=== PATIENT | male | born 1950 | race Caucasian/White ===

== ENCOUNTER → 2019-11-16 09:54 | Outpatient (BNVA) | payer MEDICARE, SELFPAY | PROVIDERS: Family Provider Family Medicine; PCP Family Medicine; Visit Provider Family Medicine | DX: I10 Essential (primary) hypertension (principal); Z72.0 Tobacco use; F10.10 Alcohol abuse, uncomplicated; H61.23 Impacted cerumen, bilateral; E03.9 Hypothyroidism, unspecified; F41.9 Anxiety disorder, unspecified | CPT/HCPCS: 80053; 84443; 85025 ==

== ENCOUNTER → 2020-10-07 10:48 | Outpatient (BNVA) | payer MEDICARE, SELFPAY | PROVIDERS: Family Provider Family Medicine; PCP Family Medicine; Visit Provider Nurse Practitioner Family | DX: Z20.822 Contact with and (suspected) exposure to COVID-19 (principal) | CPT/HCPCS: 87635 ==

== ENCOUNTER → 2020-10-24 10:32 | Outpatient (BNVA) | payer MEDICARE, SELFPAY | PROVIDERS: Family Provider Family Medicine; PCP Family Medicine; Visit Provider Family Medicine | DX: I10 Essential (primary) hypertension (principal); H61.21 Impacted cerumen, right ear; Z72.0 Tobacco use | CPT/HCPCS: 80053; 85025 ==

== ENCOUNTER → 2020-12-23 09:54 | Outpatient (BNVA) | payer MEDICARE, SELFPAY | PROVIDERS: Family Provider Family Medicine; PCP Family Medicine; Visit Provider Nurse Practitioner Family | DX: Z20.822 Contact with and (suspected) exposure to COVID-19 (principal) | CPT/HCPCS: 87635 ==

== ENCOUNTER → 2021-01-29 09:59 | Outpatient (BNVA) | payer MEDICARE, SELFPAY | PROVIDERS: Family Provider Family Medicine; PCP Family Medicine; Visit Provider Family Medicine | DX: E03.9 Hypothyroidism, unspecified (principal); R26.89 Other abnormalities of gait and mobility; F33.1 Major depressive disorder, recurrent, moderate; F10.10 Alcohol abuse, uncomplicated; Z72.0 Tobacco use; I10 Essential (primary) hypertension | CPT/HCPCS: 82607; 82746; 84443 ==

== ENCOUNTER → 2021-08-25 11:27 | Outpatient (BNVA) | payer MEDICARE, SELFPAY | PROVIDERS: Family Provider Family Medicine; PCP Family Medicine; Visit Provider Family Medicine | DX: H61.21 Impacted cerumen, right ear (principal); F10.10 Alcohol abuse, uncomplicated; I10 Essential (primary) hypertension; Z72.0 Tobacco use; R73.9 Hyperglycemia, unspecified | CPT/HCPCS: 80053; 83036; 85025 ==

== ENCOUNTER 2022-04-02 02:53 | Observation (INO) | payer MEDICARE, MEDICAID, SELFPAY ==
[2022-04-02] VITALS (34 sets, daily range): BP systolic 90–157; BP diastolic 43–96; PULSE 59–78; RESP 8–21; TEMP 36.6–36.8; O2SAT 94–100; BMI 38.0
--- NOTE | 2022-04-02 02:56 | XRR_ITS ---
PROCEDURE INFORMATION: Exam: XR Chest Exam date and time: 04/02/2022 4:04 AM Age: 71 years old Clinical indication: Other: AMS; Patient HX: Patient reported wandering outside by neighbors and brought via EMS. Patient very confused. Unable to obtain history TECHNIQUE: Imaging protocol: Radiologic exam of the chest. Views: 1 view. COMPARISON: No relevant prior studies available. FINDINGS: Lungs: Unremarkable. No consolidation. Pleural spaces: Unremarkable. No pleural effusion. No pneumothorax. Heart/Mediastinum: There is mild cardiomegaly. Bones/joints: Unremarkable. XR/XR chest 1V portable [id number] IMPRESSION: Mild cardiomegaly.
--- NOTE | 2022-04-02 02:56 | CTR_ITS ---
PROCEDURE INFORMATION: Exam: CT Head Without Contrast Exam date and time: 04/02/2022 3:21 AM Age: 71 years old Clinical indication: Altered mental status/memory loss; Confusion or disorientation; Patient HX: Patient reported wandering outside by neighbors and brought via EMS. Patient very confused. Unable to obtain history; Additional info: AMS TECHNIQUE: Imaging protocol: Computed tomography of the head without contrast. Radiation optimization: All CT scans at this facility use at least one of these dose optimization techniques: automated exposure control; mA and/or kV adjustment per patient size (includes targeted exams where dose is matched to clinical indication); or iterative reconstruction. COMPARISON: No relevant prior studies available. RADIATION DOSE METRICS: Total DLP (mGy-cm): 1076.68 FINDINGS: Brain: There is mild parenchymal atrophy and chronic small vessel disease. Old right basal ganglia lacunar infarct. No cerebral/cerebellar infarct. No brain parenchymal or extra-axial hemorrhage. Cerebral ventricles: No ventriculomegaly. Paranasal sinuses: Paranasal sinuses are clear. No air-fluid level. Mastoid air cells: Visualized mastoid air cells are clear. Bones/joints: Unremarkable. No acute fracture. Soft tissues: Unremarkable. CT/CT head wo con* [id number] IMPRESSION: 1. No acute infarct or hemorrhage. 2. Mild parenchymal atrophy and chronic small vessel disease.
--- NOTE | 2022-04-02 02:58 | W.ED.GENADLT ---
HPI - General Adult General: Chief complaint: Altered Mental Status Stated complaint: Confusion/AMS Time Seen by Provider: 04/02/22 02:56 Source: patient and EMS Mode of arrival: EMS Limitations: altered mental status History of Present Illness: 71-year-old male who is brought in by EMS for confusion patient was found wandering around his neighbors yard who called police who then called EMS patient is quite confused. He states that he lives with his son the police were not able to find his son and was able to contact his son. Patient is able to tell me his name but he does not know the year he is not really able to tell me his address he told EMS that he was looking for deer out in his yard. Per EMS neighbor states that he was confused and was not able to figure out how to get back to his own house either. Review of Systems General: Reports: ROS unobtainable due to mental status PFS ED PFSH: Medical History Alcohol abuse Hypertension Major depression Tobacco abuse Social History Smoking and tobacco status: current every day smoker Alcohol intake: current Physical Exam Const: COMMON NORMALS: negative for patient oriented x3 HENMT: COMMON NORMALS: normocephalic and atraumatic HEAD & SCALP: normocephalic and atraumatic Eye: COMMON NORMALS: Equal, round and reactive pupils present and EOMs intact bilaterally PUPIL: Yes Equal, round and reactive pupils present Neck/C-Spine: COMMON NORMALS: full ROM and supple Chest: COMMONS NORMALS: normal inspection of the chest and normal palpation of entire chest wall Resp: COMMON NORMALS: normal respiratory effort, No retractions, No use of accessory muscles and clear to auscultation bilaterally AUSCULTATION: clear to auscultation bilaterally Cardio: COMMON NORMALS: regular rate, regular rhythm and No murmurs present (Cardio) RATE: regular rate RHYTHM: regular rhythm GI: COMMON NORMALS: Normal to inspection, nondistended, normoactive bowel sounds present, Soft to palpation, non-tender and no masses PALPATION: Yes Soft to palpation Extremity: COMMON NORMALS: normal to inspection and full ROM Neuro: COMMON NORMALS: moves all extremities and no focal motor deficits; negative for patient oriented x3 Psych: COMMON NORMALS: cooperative; negative for mental status grossly normal Skin: COMMON NORMALS: no rashes or lesions noted and no wounds GENERAL SKIN EXAM: no rashes or lesions noted Course Vital Signs: Vital signs: Vital Signs Temperature 97.9 F 04/02/22 03:04 Pulse Rate 78 04/02/22 03:30 Respiratory Rate 12 04/02/22 03:30 Blood Pressure 135/76 04/02/22 03:22 Pulse Oximetry 98 04/02/22 03:30 Oxygen Delivery Me thod 04/02/22 03:04 [facility] - General Adult Medical Decision Making Patient presents here with altered mental status he is found wandering outside he is not hypothermic his blood work head CT is normal spoke to hospitalist will admit for observation at this time. Lab Data 04/02/22 03:10 04/02/22 03:10 Radiology Impressions Chest X-Ray 04/02/22 02:56 IMPRESSION: Mild cardiomegaly. Head CT 04/02/22 02:56 IMPRESSION: 1. No acute infarct or hemorrhage. 2. Mild parenchymal atrophy and chronic small vessel disease. Laboratory Results WBC 10.4 10^3/uL (4.0-10.0) H 04/02/22 03:10 RBC 3.97 10^6/uL (4.1-5.3) L 04/02/22 03:10 Hgb 12.4 g/dL (11.7-16.6) 04/02/22 03:10 Hct 37.0 % (42.0-52.0) L 04/02/22 03:10 MCV 93.2 fl (80-94) 04/02/22 03:10 MCH 31.2 pg (28.0-34.0) 04/02/22 03:10 MCHC 33.5 g/dL (30.0-36.0) 04/02/22 03:10 RDW 12.2 % (12.1-15.1) 04/02/22 03:10 Plt Count 169 10^3/cmm (130-400) 04/02/22 03:10 MPV 11.9 fL (7.4-10.4) H 04/02/22 03:10 Neut % (Auto) 68.4 % 04/02/22 03:10 Lymph % (Auto) 22.0 % 04/02/22 03:10 [place] % (Auto) 7.3 % 04/02/22 03:10 Eos % (Auto) 1.2 % 04/02/22 03:10 Baso % (Auto) 0.6 % 04/02/22 03:10 Neut # (Auto) 7.14 10^3/uL (1.8-7.7) 04/02/22 03:10 Lymph # (Auto) 2.3 10^3/uL (0.8-4.8) 04/02/22 03:10 [place] # (Auto) 0.8 10^3/uL (0.2-0.9) 04/02/22 03:10 Eos # (Auto) 0.1 10^3/uL (0.0-0.8) 04/02/22 03:10 Baso # (Auto) 0.1 10^3/uL (0.0-0.1) 04/02/22 03:10 Nucleated RBC % (auto) 0 % 04/02/22 03:10 Nucleated RBCs # 0.0 /100WBC 04/02/22 03:10 PT 13.90 SECONDS (12.1-14.9) 04/02/22 03:10 INR 1.04 (0.8-1.2) 04/02/22 03:10 Sodium 137 mmol/L (136-145) 04/02/22 03:10 Potassium 4.4 mmol/L (3.5-5.1) 04/02/22 03:10 Chloride 101 mmol/L (98-107) 04/02/22 03:10 Carbon Dioxide 23 mmol/L (22-29) 04/02/22 03:10 Anion Gap 17.4 (5-19) 04/02/22 03:10 BUN 49 mg/dL (8-23) H 04/02/22 03:10 Creatinine 1.2 mg/dL (0.7-1.2) 04/02/22 03:10 GFR Calculation Not Reportable 04/02/22 03:10 Glucose 96 mg/dL (65-115) 04/02/22 03:10 POC Glucose 116 mg/dL (70-110) H 04/02/22 03:06 Calculated Osmolality 297 mOsm/kg (285-295) H 04/02/22 03:10 Calcium 9.5 mg/dL (8.5-10.5) 04/02/22 03:10 Magnesium 2.4 mg/dL (1.7-2.3) H 04/02/22 03:10 Total Bilirubin 0.3 mg/dL (0.15-1.2) 04/02/22 03:10 AST 33 U/L (0-40) 04/02/22 03:10 ALT 25 U/L (0-41) 04/02/22 03:10 Alkaline Phosphatase 102 U/L (40-130) 04/02/22 03:10 Total Protein 7.1 g/dL (6.6-8.7) 04/02/22 03:10 Albumin 4.2 g/dL (3.5-5.2) 04/02/22 03:10 Globulin 2.9 g/dL (1.3-4.6) 04/02/22 03:10 Lipase 36 U/L (13-60) 04/02/22 03:10 Urine Color Yellow (Yellow) 04/02/22 04:04 Urine Appearance Clear (CLEAR) 04/02/22 04:04 Urine pH 5 (5-7) 04/02/22 04:04 Ur Specific [place] 1.020 (1.005-1.030) 04/02/22 04:04 Urine Protein Neg (Negative) 04/02/22 04:04 Urine Glucose (UA) Norm (Normal) 04/02/22 04:04 Urine Ketones Negative (Negative) 04/02/22 04:04 Urine Blood Neg (Negative) 04/02/22 04:04 Urine Nitrate Negative (Negative) 04/02/22 04:04 Urine Bilirubin Neg (Negative) 04/02/22 04:04 Urine Urobilinogen Norm mg/dL (Negative) 04/02/22 04:04 Ur Leukocyte Esterase Negative (Negative) 04/02/22 04:04 Ethyl Alcohol < 10 mg/dL (0-10) 04/02/22 03:10 EKG Data EKG 1: I personally reviewed and interpreted this EKG as follows: EKG interpretation date: 04/02/22 EKG interpretation time: 03:17 Interpretation: nsr hr [address] or t wave abnormalities qrs 89 qtc 422 Computer generated interpretation: Chest X-Ray 04/02/22 02:56 IMPRESSION: Mild cardiomegaly. Head CT 04/02/22 02:56 IMPRESSION: 1. No acute infarct or hemorrhage. 2. Mild parenchymal atrophy and chronic small vessel disease. Discharge Plan Discharge Patient Disposition: Admitted As Inpatient Clinical Impression: Altered mental status Condition: Stable Coding Level of Care Code ED Housekeeping Aide for Johnnie Fwd Exam Comprehensive
--- NOTE | 2022-04-02 03:17 | ECG_ITS ---
[facility] Test Date: 2022-04-02 Pat Name: Steve Garcia Department: Room: Gender: Male Linux Vmware Administrator: : 1950 Requested By: Gabriel Faustin Order Number: [id number] Faustino MD: Helder Christiansen M.D. Measurements Intervals [place] Rate: 75 P: 72 DE: 171 QRS: 38 QRSD: 89 T: 44 QT: 393 QTc: 441 Interpretive Statements SINUS RHYTHM No previous ECG available for comparison Electronically Signed On 04-03-2022 6:27:12 FORENSIC CHEMIST by Helder Christiansen M.D. [id number]
[2022-04-02 03:20] LABS: Glucose Point of Care 116 mg/dL (70-110)
[2022-04-02 03:26] LABS: Basophils # 0.1 10^3/uL (0.0-0.1); Basophils % 0.6 %; Eosinophils # 0.1 10^3/uL (0.0-0.8); Eosinophils % 1.2 %; Hemoglobin 12.4 g/dL (11.7-16.6); Lymphocytes # 2.3 10^3/uL (0.8-4.8); Mean Corpuscular HGB Conc 33.5 g/dL (30.0-36.0); Mean Corpuscular Hemoglobin 31.2 pg (28.0-34.0); Mean Corpuscular Volume 93.2 fl (80-94); Mean Platelet Volume 11.9 fL (7.4-10.4); Monocytes # 0.8 10^3/uL (0.2-0.9); Monocytes % 7.3 %; Neutrophils # 7.14 10^3/uL (1.8-7.7); Neutrophils % 68.4 %; Nucleated Red Blood Cells % 0 %; Platelet Count 169 10^3/cmm (130-400); Red Blood Count 3.97 10^6/uL (4.1-5.3); Red Cell Distribution Width 12.2 % (12.1-15.1); White Blood Count 10.4 10^3/uL (4.0-10.0)
[2022-04-02 03:44] LABS: INR 1.04 (0.8-1.2)
[2022-04-02 03:47] LABS: Alanine Aminotransferase 25 U/L (0-41); Albumin Level 4.2 g/dL (3.5-5.2); Alkaline Phosphatase 102 U/L (40-130); Aspartate Amino Transferase 33 U/L (0-40); Blood Urea Nitrogen 49 mg/dL (8-23); Calcium 9.5 mg/dL (8.5-10.5); Carbon Dioxide 23 mmol/L (22-29); Chloride 101 mmol/L (98-107); Globulin 2.9 g/dL (1.3-4.6); Glucose 96 mg/dL (65-115); Osmolality Calculated 297 mOsm/kg (285-295); Sodium 137 mmol/L (136-145); Total Bilirubin 0.3 mg/dL (0.15-1.2); Total Protein 7.1 g/dL (6.6-8.7)
[2022-04-02 03:48] LABS: Lipase 36 U/L (13-60); Magnesium 2.4 mg/dL (1.7-2.3)
[2022-04-02 03:49] LABS: Alcohol Level < 10 mg/dL (0-10); Anion Gap 17.4 (5-19); Potassium 4.4 mmol/L (3.5-5.1)
[2022-04-02 04:10] LABS: Add Urine Microscopic? NO; Charge for UA Resulting for Rev
[2022-04-02 04:13] LABS: Bilirubin Urine Neg (Negative); Blood Urine Neg (Negative); Glucose Urine UA Norm (Normal); Ketones Urine Negative (Negative); Leukocyte Esterase Urine Negative (Negative); Nitrate Urine Negative (Negative); Protein Urine Neg (Negative); Urine Appearance Clear (CLEAR); Urine Color Yellow (Yellow); Urobilinogen Urine Norm (Negative); pH Urine 5 (5-7)
--- NOTE | 2022-04-02 06:21 | PC.NURSE ---
0500 pt given bed bath with family at bedside. Pt had multiple layers of urine and stool stain clothing on. New bed linens applied. 0550 Pt ambulated with assistance of nurse to bathroom for BM. Pt attempted to wipe ori area with bare hand. Nurse assisted to clean again. Pt unaware of feces on hands at the time. 0600 pt returned to bed. skin tear to Right ring finger dressed and taped at this time as well as skin tear to right forearm.
--- NOTE | 2022-04-02 06:59 | US_ITS ---
WS: [id number] ULTRASOUND ABDOMEN LIMITED CLINICAL INFORMATION: alcohol dependence, evaluate for cirrhosis COMPARISON: None. FINDINGS: Liver Size: Mild hepatomegaly Craniocaudal length: 16.7 cm. Echogenicity: Coarse Surface nodularity: None. Mass (size and location): None. Bile ducts Intrahepatic ducts: Normal. Common bile duct diameter: 0.5 cm. Gallbladder Cholelithiasis Gallstones: Present Gallbladder sludge: Present Gallbladder wall thickening: None. Pericholecystic fluid: None. Sonographic Soliman sign: Absent. Pancreas Normal as visualized. Right kidney: Normal. Hydronephrosis: None. Size: 11.2 cm x 5.7 cm x 6.1 cm. Abdominal aorta and IVC Visualized portions are normal. Ascites: None. US/US liver [id number] IMPRESSION: 1. Cholelithiasis. No gallbladder wall thickening or pericholecystic fluid. 2. Normal common bile duct. 3. Mild hepatomegaly with coarse hepatic echogenicity. Recommend correlation w ith liver function tests. 4. No other suspicious anomalies.
--- NOTE | 2022-04-02 07:10 | PM.HP ---
Providers/Chief Complaint Admitting Physician: Keily Cleveland MD Primary Care Provider: Shabana Don MD Chief Complaint: Confusion/AMS History of Present Illness Steve Garcia is a 71 year old male with a past medical history of alcohol dependence, hypertension, possibly also with dementia with progressive cognitive changes over the past at least 6 months brought in by EMS after he was found wandering the streets at night. Patient recalls leaving the house however is unable to tell me why exactly he left the house. He also tells me he fell. There are a few scrapes over his left knee. He denies hitting his head. Patient himself does not have any other specific complaints apart from the fact that he fell. Per his son Steven was currently at bedside, patient has been having cognitive deterioration slowly over the past at least 1 year, more progressive over the last 6 months. It was planned to follow-up with his primary care provider as an outpatient for further evaluation for possible dementia, however this appointment was unable to be completed. He typically follows with Dr. Don as outpatient. His son describes episodes of hallucination wherein he will see people that were not there, he will attempt to go filler picker his parents who are currently , will make up some stories which are not believable. He has left the house on occasions in the past but has mostly wandered around in the yard and been brought back inside by his family. His family initially thought that his behavior is related to his history of longstanding alcohol use. He is a heavy drinker, drinks multiple beers a day, has been attempting to cut back over the last 6 months or so. Currently his alcohol level is less than 10. At the time of my assessment patient is alert awake oriented to time place and person. He is able to correctly tell me his name, age, date of , the fact that he is in the hospital and that he lives in [place] about 10 miles from the hospital. However when asked to identify his son at bedside, initially he called him his brother. Then laughed and said that this is his son. Initially called his son Grayson while his son's name is Steven. He correctly told me he has 2 kids. 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 No other hallucinations evident at this time. There is no known past history of liver cirrhosis, no history of cardiac disease. No known history of diabetes mellitus. His chronic issues at this time are only hypertension. Review of Systems General: Reports: 10 or more systems reviewed and unremarkable except in HPI and below Const: Denies: fever(s), chills or body aches Eyes: Denies: change in vision, blurry vision or photophobia ENMT: Reports: hoarseness; Denies: throat pain, enlarged tonsils, odynophagia or nasal congestion Card: Denies: chest pain, palpitations, irregular heart rhythm, edema, swelling of feet/ankles, lightheadedness, pre-syncope, dyspnea on exertion or orthopnea Resp: Denies: dyspnea, productive cough, non-productive cough, wheezing, stridor, pain on inspiration, change in phlegm color, hemoptysis or chest congestion GI: Denies: abdominal pain, nausea, vomiting, hematemesis, coffee ground emesis, dysphagia, heartburn, diarrhea, constipation, GI cramping, change in stool character, hematochezia or melena : Denies: flank pain, dysuria, urinary frequency, urinary urgency, urinary hesitancy or hematuria Musc: Denies: neck pain, back pain, extremity pain, joint swelling, joint warmth or deformity Neuro: Denies: headache(s), numbness in extremities, weakness in extremities, sensory changes, difficulty walking, frequent falls, dizziness, vertigo, behavioral changes, Slurred speech present or seizure-like activity Psych: Denies: anxiety, depression, suicidal ideation or homicidal ideation Endo: Denies: polyuria, polydipsia, tired all the time, cold intolerance or hot flashes Mg/Lymph: Denies: easy bruising or easy bleeding Medications/Allergies Home Medications Medication Instructions Recorded Confirmed Last Taken Type lorazepam 1 mg tablet 1 mg PO DAILY PRN anxiety 30 days 10/24/20 12/15/21 Unknown Rx #20 tabs amlodipine 10 mg tablet See Rx Instructions .Route 06/24/21 12/15/21 Unknown Rx .COMPLEX #90 tabs potassium chloride 20 mEq 20 meq PO DAILY #30 tabs 08/26/21 12/15/21 Unknown Rx tablet,extended release losartan 50 mg-hydrochlorothiazide 1 tab PO DAILY #90 tabs 11/11/21 12/15/21 Unknown Rx 12.5 mg tablet Allergies Allergy/AdvReac Type Severity Reaction Status Date / Time Iodinated Contrast Media Allergy hives Verified 12/15/21 09:52 PFSH Acute PFSH: Medical History Alcohol abuse Hypertension Major depression Tobacco abuse Social History Smoking and tobacco status: current every day smoker Alcohol intake: current Vitals/I&O/Wt Last Vital Signs Temp 97.9 F 04/02/22 03:04 Pulse 76 04/02/22 06:38 Resp 16 04/02/22 06:38 BP 121/75 04/02/22 06:38 Pulse Ox 99 04/02/22 06:38 O2 Del Method 04/02/22 06:18 Weight last 48 hrs Weight 120.202 kg Physical Exam Narrative: General: No acute distress, AO x3 HEENT: PERRLA, pupils bilaterally equal and reactive, pallors not present Chest: Normal vesicular breath sounds, no added sounds, equal good air entry bilaterally CVS: S1-S2 regular, no murmurs, no tachycardia, no gallops, no rubs Abdomen: Soft, nontender, no organomegaly, bowel sounds present, circular erythematous area around the bellybutton, patient states this is from a belt buckle and constantly impinges against it. Neuro: No focal deficits, no facial deformity, AO x3, power 5/5 in all limbs EXTR extremities: Athlete's foot right side. Data 04/02/22 03:10 04/02/22 03:10 Other Labs: Radiology Impressions Chest X-Ray 04/02/22 02:56 IMPRESSION: Mild cardiomegaly. Head CT 04/02/22 02:56 IMPRESSION: 1. No acute infarct or hemorrhage. 2. Mild parenchymal atrophy and chronic small vessel disease. Laboratory Results WBC 10.4 10^3/uL (4.0-10.0) H 04/02/22 03:10 RBC 3.97 10^6/uL (4.1-5.3) L 04/02/22 03:10 Hgb 12.4 g/dL (11.7-16.6) 04/02/22 03:10 Hct 37.0 % (42.0-52.0) L 04/02/22 03:10 MCV 93.2 fl (80-94) 04/02/22 03:10 MCH 31.2 pg (28.0-34.0) 04/02/22 03:10 MCHC 33.5 g/dL (30.0-36.0) 04/02/22 03:10 RDW 12.2 % (12.1-15.1) 04/02/22 03:10 Plt Count 169 10^3/cmm (130-400) 04/02/22 03:10 MPV 11.9 fL (7.4-10.4) H 04/02/22 03:10 Neut % (Auto) 68.4 % 04/02/22 03:10 Lymph % (Auto) 22.0 % 04/02/22 03:10 [place] % (Auto) 7.3 % 04/02/22 03:10 Eos % (Auto) 1.2 % 04/02/22 03:10 Baso % (Auto) 0.6 % 04/02/22 03:10 Neut # (Auto) 7.14 10^3/uL (1.8-7.7) 04/02/22 03:10 Lymph # (Auto) 2.3 10^3/uL (0.8-4.8) 04/02/22 03:10 [place] # (Auto) 0.8 10^3/uL (0.2-0.9) 04/02/22 03:10 Eos # (Auto) 0.1 10^3/uL (0.0-0.8) 04/02/22 03:10 Baso # (Auto) 0.1 10^3/uL (0.0-0.1) 04/02/22 03:10 Nucleated RBC % (auto) 0 % 04/02/22 03:10 Nucleated RBCs # 0.0 /100WBC 04/02/22 03:10 PT 13.90 SECONDS (12.1-14.9) 04/02/22 03:10 INR 1.04 (0.8-1.2) 04/02/22 03:10 Sodium 137 mmol/L (136-145) 04/02/22 03:10 Potassium 4.4 mmol/L (3.5-5.1) 04/02/22 03:10 Chloride 101 mmol/L (98-107) 04/02/22 03:10 Carbon Dioxide 23 mmol/L (22-29) 04/02/22 03:10 Anion Gap 17.4 (5-19) 04/02/22 03:10 BUN 49 mg/dL (8-23) H 04/02/22 03:10 Creatinine 1.2 mg/dL (0.7-1.2) 04/02/22 03:10 GFR Calculation Not Reportable 04/02/22 03:10 Glucose 96 mg/dL (65-115) 04/02/22 03:10 POC Glucose 116 mg/dL (70-110) H 04/02/22 03:06 Calculated Osmolality 297 mOsm/kg (285-295) H 04/02/22 03:10 Calcium 9.5 mg/dL (8.5-10.5) 04/02/22 03:10 Magnesium 2.4 mg/dL (1.7-2.3) H 04/02/22 03:10 Total Bilirubin 0.3 mg/dL (0.15-1.2) 04/02/22 03:10 AST 33 U/L (0-40) 04/02/22 03:10 ALT 25 U/L (0-41) 04/02/22 03:10 Alkaline Phosphatase 102 U/L (40-130) 04/02/22 03:10 Total Protein 7.1 g/dL (6.6-8.7) 04/02/22 03:10 Albumin 4.2 g/dL (3.5-5.2) 04/02/22 03:10 Globulin 2.9 g/dL (1.3-4.6) 04/02/22 03:10 Lipase 36 U/L (13-60) 04/02/22 03:10 Urine Color Yellow (Yellow) 04/02/22 04:04 Urine Appearance Clear (CLEAR) 04/02/22 04:04 Urine pH 5 (5-7) 04/02/22 04:04 Ur Specific [place] 1.020 (1.005-1.030) 04/02/22 04:04 Urine Protein Neg (Negative) 04/02/22 04:04 Urine Glucose (UA) Norm (Normal) 04/02/22 04:04 Urine Ketones Negative (Negative) 04/02/22 04:04 Urine Blood Neg (Negative) 04/02/22 04:04 Urine Nitrate Negative (Negative) 04/02/22 04:04 Urine Bilirubin Neg (Negative) 04/02/22 04:04 Urine Urobilinogen Norm mg/dL (Negative) 04/02/22 04:04 Ur Leukocyte Esterase Negative (Negative) 04/02/22 04:04 Ethyl Alcohol < 10 mg/dL (0-10) 04/02/22 03:10 A&P Assessment and plan (1) Altered mental status: Patient today brought by EMS after he was found wandering the streets, having left his house. Based on his history this seems to be a very slowly progressive process over the past 1 year, worsened over the last 6 months. Progressive dementia is the chief differential at this time. CT of his head is without any signs of acute infarct or hemorrhage. There is mild parenchymal atrophy and chronic small vessel disease. His electrolytes are within normal range today. Creatinine is normal. We will check urine drug screen, TSH, ammonia, and a liver ultrasound to assess for any underlying cirrhosis given longstanding history of alcohol dependence. Alternate differentials are Wernicke's encephalopathy given longstanding alcohol use. We will start supplementation with thiamine 100 mg p.o. daily. No focal signs or symptoms of infection at this time. Urine analysis is without signs of UTI. Mild cardiomegaly is noted on chest x-ray but otherwise clear lungs. patient denies any complains of chest pain dyspnea or palpitations. EKG is with sinus rhythm without any acute ST-T wave changes. We will would admit to [facility] bservation currently. Further orders based on results of pending blood work. DVT prophylaxis: Lovenox Dispo: currently lives with son Omar, however plan is to return to live with his (currently living in separate homes). Other son Steven is listed as next of kin and point of contact Attestations Medical Necessity Statement*: anticipate less than 2 midnight admission for above defined care Coding Level of Care Code Acute Rapid Extractor Operator for Chg Fwd Diagnoses Altered mental status R41.82
--- NOTE | 2022-04-02 07:51 | PC.PHAR ---
Addendum entered by Zoe Garcia 04/02/22 08:02: crissy from [facility] states only fills 3 rxs for the pt-medications entered are meds [facility] pharmacy fills for the pt-pt had a lorazepam 1mg qd prn on hold rx written 10/24/2020 and is Original Note: pts carmelo garcia [phone] states he doesnt help the pt with his medications-states the pts other son judy garcia lives with the pt and helps him with his medications-brain states no one can get ahold or fine judy states he did cherry picker operator his dads medications from [facility] waiting for [facility] to open to verify what medications filled for the pt
[2022-04-02 09:13] LABS: Folate Level 7.1 ng/mL (4.5-32.2)
[2022-04-02 09:14] LABS: Hepatitis A Antibody IgM Non-Reactive (Nonreactive); Hepatitis B Core AB, Total Non-Reactive (Nonreactive); Hepatitis B Surface AB 3.5 (11.5-1000); Hepatitis B Surface Antigen Non-Reactive (Nonreactive); Hepatitis C Virus Antibody Non-Reactive (Nonreactive)
[2022-04-02] MEDS: folic acid 1 MG, multivitamin inj 10 ML, thiamine 100 MG in sodium chloride 0.9% 1,000 ML IV (09:32)
--- NOTE | 2022-04-02 09:32 | PC.CHAP ---
Pastoral Care Encounter/Spiritual Assessment Type of Contact [] Declined student support advisor visit [] Patient/Family/Request visit [] Outpatient visit [] Follow-up visit [] Physician referral [] Code/Alert [x] Routine visit [] Staff referral [] Actively dying [] Patient sleeping [] Family support [] [] Out of room [] Palliative care [] [x] Receiving care in room [] Pre-surgical visit [] Trauma [] Long length of stay [x] ICU visit [] Other: Relational/Emotional Strength [] Patient feels connected with others/family/visitors/staff [] Distress [] Loneliness/isolation [] Abandonment Spirituality of Patient [] Person of Hilaria [] Attends Quaker of their Hilaria [] Believes in Prayer [] Reads Bible or Rastafari materials [] There are Spiritual issues to be addressed Industrial Ecology Technician Interventions [] Prayer [] Active listening [] Non-anxious presence [] Spiritual/emotional support [] Crisis/trauma care [] Spiritual counseling [] Bereavement support [] Provided bereavement packet [] Provided Bible/devotional materials [] Provided toy/stuffed animal, coloring book to patient or family member [] Provided Communion [] Anointing/[place] [] Salvation [] Completed spiritual assessment [] Other: Impact on Illness or Injury [] Angry [] Fearful [] Anxious [] Often cries [] Exhaustion [] Unable to work [] Unable to attend restorationism [] Unable to walk/stand [] Unable to read [] Unable to drive [] Unable to eat/drink [] Unable to sleep [] Unable to be with family [] Patient intubated [] Other: Summary Time spent with patient
[2022-04-02] MEDS: hydroCHLOROthiazide 25 mg Tablet 12.5 MG PO (09:37)
[2022-04-02] MEDS: losartan 50 mg Tablet PO (09:37)
[2022-04-02] MEDS: enoxaparin 40 mg/0.4 mL Syringe SUBCUT (09:38)
[2022-04-02] MEDS: thiamine 100 mg Tablet PO (09:38)
[2022-04-02] MEDS: amlodipine 10 mg Tablet PO (09:38)
[2022-04-02] MEDS: pantoprazole DR 40 mg Tablet PO (09:38)
[2022-04-02 09:48] LABS: Ammonia 28 umol/L (16-60)
[2022-04-02 09:58] LABS: Amphetamines Screen Urine Negative (Negative); Barbiturates Screen Urine Negative (Negative); Benzodiazepines Screen Urine Negative (Negative); Cocaine Screen Urine Negative (Negative); Opiate Screen Urine Negative (Negative); PCP Screen Urine Negative (Negative); THC Screen Urine Negative (Negative)
[2022-04-02 10:12] LABS: Thyroid Stimulating Hormone 1.48 uIU/mL (0.27-4.20); Vitamin B12 253 pg/mL (232-1245)
--- NOTE | 2022-04-02 18:03 | PC.NURSE ---
shift summary, uneventful shift, mentation improved during shift, is AO at this time follows commands, family has been at bedside, tentative plan to D/C tomorrow
[2022-04-02] MEDS: artificial tears Op Soln 15 mL Btl 1 DROP EYE-BOTH (20:05)
[2022-04-03] VITALS: BP 102/64; PULSE 61; RESP 17; TEMP 36.8; O2SAT 96
[2022-04-03 04:00] VITALS: BP 134/83; PULSE 63; RESP 18; TEMP 36.7; O2SAT 98
[2022-04-03 05:41] LABS: Basophils % 0.6 %; Eosinophils # 0.2 10^3/uL (0.0-0.8); Eosinophils % 2.5 %; Hematocrit 33.6 % (42.0-52.0); Lymphocytes # 2.9 10^3/uL (0.8-4.8); Lymphocytes % 46.3 %; Mean Corpuscular HGB Conc 32.7 g/dL (30.0-36.0); Mean Corpuscular Volume 94.6 fl (80-94); Mean Platelet Volume 12.2 fL (7.4-10.4); Monocytes # 0.6 10^3/uL (0.2-0.9); Monocytes % 8.7 %; Neutrophils # 2.63 10^3/uL (1.8-7.7); Neutrophils % 41.6 %; Nucleated Red Blood Cells % 0 %; Platelet Count 146 10^3/cmm (130-400); Red Blood Count 3.55 10^6/uL (4.1-5.3); Red Cell Distribution Width 12.2 % (12.1-15.1); White Blood Count 6.3 10^3/uL (4.0-10.0)
[2022-04-03 05:59] LABS: Alanine Aminotransferase 21 U/L (0-41); Albumin Level 3.2 g/dL (3.5-5.2); Alkaline Phosphatase 90 U/L (40-130); Anion Gap 12.8 (5-19); Aspartate Amino Transferase 25 U/L (0-40); Blood Urea Nitrogen 32 mg/dL (8-23); Calcium 8.8 mg/dL (8.5-10.5); Carbon Dioxide 24 mmol/L (22-29); Chloride 105 mmol/L (98-107); Globulin 2.7 g/dL (1.3-4.6); Glucose 78 mg/dL (65-115); Osmolality Calculated 292 mOsm/kg (285-295); Potassium 3.8 mmol/L (3.5-5.1); Sodium 138 mmol/L (136-145); Total Bilirubin 0.4 mg/dL (0.15-1.2); Total Protein 5.9 g/dL (6.6-8.7)
[2022-04-03 06:42] LABS: Glucose Point of Care 84 mg/dL (70-110)
[2022-04-03] MEDS: hydroCHLOROthiazide 25 mg Tablet 12.5 MG PO (07:52)
[2022-04-03] MEDS: losartan 50 mg Tablet PO (07:52)
[2022-04-03] MEDS: amlodipine 10 mg Tablet PO (07:52)
[2022-04-03] MEDS: pantoprazole DR 40 mg Tablet PO (07:52)
[2022-04-03] MEDS: thiamine 100 mg Tablet PO (07:52)
[2022-04-03] MEDS: enoxaparin 40 mg/0.4 mL Syringe SUBCUT (07:53)
[2022-04-03 07:54] VITALS: BP 142/76; PULSE 60; RESP 16; TEMP 36.3; O2SAT 98
--- NOTE | 2022-04-03 11:10 | PC.CHAP ---
Pastoral Care Encounter/Spiritual Assessment Type of Contact [] Declined fermentation manager visit [] Patient/Family/Request visit [] Outpatient visit [] Follow-up visit [] Physician referral [] Code/Alert [x] Routine visit [] Staff referral [] Actively dying [x] Patient sleeping [] Family support [] [] Out of room [] Palliative care [] [] Receiving care in room [] Pre-surgical visit [] Trauma [] Long length of stay [] ICU visit [] Other: Relational/Emotional Strength [] Patient feels connected with others/family/visitors/staff [] Distress [] Loneliness/isolation [] Abandonment Spirituality of Patient [] Person of Hilaria [] Attends Rastafari of their Hilaria [] Believes in Prayer [] Reads Bible or Oriental Orthodox materials [] There are Spiritual issues to be addressed Theology Professor Interventions [x] Prayer [] Active listening [] Non-anxious presence [] Spiritual/emotional support [] Crisis/trauma care [] Spiritual counseling [] Bereavement support [] Provided bereavement packet [] Provided Bible/devotional materials [] Provided toy/stuffed animal, coloring book to patient or family member [] Provided Communion [] Anointing/[place] [] Salvation [] Completed spiritual assessment [] Other: Impact on Illness or Injury [] Angry [] Fearful [] Anxious [] Often cries [] Exhaustion [] Unable to work [] Unable to attend quaker [] Unable to walk/stand [] Unable to read [] Unable to drive [] Unable to eat/drink [] Unable to sleep [] Unable to be with family [] Patient intubated [] Other: Summary Time spent with patient
[2022-04-03 11:19] LABS: Glucose Point of Care 123 mg/dL (70-110)
--- NOTE | 2022-04-03 11:32 | PM.DCS ---
Discharge Providers Date of Admission: 04/02/22 07:00 Date of Discharge: April 03, 2022 Attending Provider at Admission: Keily Cleveland MD Attending Provider at Discharge: Yong Ray MD Primary Care Provider: Shabana Don MD Diagnoses at Discharge Discharge Diagnosis (1) Altered mental status: Status: Acute Reason for Visit Reason for Visit: Confusion/AMS Hospital Course Hospital Course Steve Garcia is a 71 year old male with a past medical history of alcohol dependence, hypertension, possibly also with dementia with progressive cognitive changes over the past at least 6 months brought in by EMS after he was found wandering the streets at night.? Patient recalls leaving the house however is unable to tell me why exactly he left the house.? He also tells me he fell.? There are a few scrapes over his left knee.? He denies hitting his head. Patient himself does not have any other specific complaints apart from the fact that he fell. Per his son Steven was currently at bedside, patient has been having cognitive deterioration slowly over the past at least 1 year, more progressive over the last 6 months.? It was planned to follow-up with his primary care provider as an outpatient for further evaluation for possible dementia, however this appointment was unable to be completed.? He typically follows with Dr. Don as outpatient.? His son describes episodes of hallucination wherein he will see people that were not there, he will attempt to go draft roller picker his parents who are currently , will make up some stories which are not believable.? He has left the house on occasions in the past but has mostly wandered around in the yard and been brought back inside by his family.? His family initially thought that his behavior is related to his history of longstanding alcohol use.? He is a heavy drinker, drinks multiple beers a day, has been attempting to cut back over the last 6 months or so.? Currently his alcohol level is less than 10. At the time of my assessment patient is alert awake oriented to time place and person.? He is able to correctly tell me his name, age, date of , the fact that he is in the hospital and that he lives in [place] about 10 miles from the hospital.? However when asked to identify his son at bedside, initially he called him his brother.? Then laughed and said that this is his son.? Initially called his son Grayson while his son's name is Steven.? He correctly told me he has 2 kids.? 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 No other hallucinations evident at this time. There is no known past history of liver cirrhosis, no history of cardiac disease.? No known history of diabetes mellitus.? His chronic issues at this time are only hypertension. Patient was under the hospital further evaluation and management. Multiple investigations were done which ruled out hepatic encephalopathy, infectious process, meningitis, stroke. Blood work showed a baseline creatinine and electrolytes. ABG, urine drug screen and alcohol levels were negative. Patient's symptoms are most likely secondary to worsening of dementia. His hospitalization was otherwise unremarkable. Safe discharge plan was discussed in detail. He has been discharged hemodynamically stable condition back home with caregivers. He is to take amlodipine and losartan going forward for blood pressures. Depakote sprinkles and Aricept have been started for him. He is to follow-up with his primary care provider within next 10 days. Physical Exam Narrative: General: No acute distress, AO x2-3 HEENT: PERRLA, pupils bilaterally equal and reactive, pallors not present Chest: Normal vesicular breath sounds, no added sounds, equal good air entry bilaterally CVS: S1-S2 regular, no murmurs, no tachycardia, no gallops, no rubs Abdomen: Soft, nontender, no organomegaly, bowel sounds present, circular erythematous area around the bellybutton, patient states this is from a belt buckle and constantly impinges against it. Neuro: No focal deficits, no facial deformity, AO x2-3, power 5/5 in all limbs EXTR extremities: Athlete's foot right side. Discharge Data Studies Completed and Pending Completed Studies During Hospitalization Category Date Time Status CT head wo con* [id number] Stat Cat Scan 04/02/22 02:56 Completed XR chest 1V portable [id number] Stat Exams 04/02/22 02:56 [place] liver [id number] Stat Ultrasound 04/02/22 06:59 Completed Pending at discharge Category Date Time Status RPR with Reflex to Titer Routine Lab 04/02/22 07:37 Received Radiology Impressions Chest X-Ray 04/02/22 02:56 IMPRESSION: Mild cardiomegaly. Head CT 04/02/22 02:56 IMPRESSION: 1. No acute infarct or hemorrhage. 2. Mild parenchymal atrophy and chronic small vessel disease. Liver Ultrasound 04/02/22 06:59 IMPRESSION: 1. Cholelithiasis. No gallbladder wall thickening or pericholecystic fluid. 2. Normal common bile duct. 3. Mild hepatomegaly with coarse hepatic echogenicity. Recommend correlation with liver function tests. 4. No other suspicious anomalies. Laboratory Results WBC 6.3 10^3/uL (4.0-10.0) 04/03/22 05:05 RBC 3.55 10^6/uL (4.1-5.3) L 04/03/22 05:05 Hgb 11.0 g/dL (11.7-16.6) L 04/03/22 05:05 Hct 33.6 % (42.0-52.0) L 04/03/22 05:05 MCV 94.6 fl (80-94) H 04/03/22 05:05 MCH 31.0 pg (28.0-34.0) 04/03/22 05:05 MCHC 32.7 g/dL (30.0-36.0) 04/03/22 05:05 RDW 12.2 % (12.1-15.1) 04/03/22 05:05 Plt Count 146 10^3/cmm (130-400) 04/03/22 05:05 MPV 12.2 fL (7.4-10.4) H 04/03/22 05:05 Neut % (Auto) 41.6 % 04/03/22 05:05 Lymph % (Auto) 46.3 % 04/03/22 05:05 [place] % (Auto) 8.7 % 04/03/22 05:05 Eos % (Auto) 2.5 % 04/03/22 05:05 Baso % (Auto) 0.6 % 04/03/22 05:05 Neut # (Auto) 2.63 10^3/uL (1.8-7.7) 04/03/22 05:05 Lymph # (Auto) 2.9 10^3/uL (0.8-4.8) 04/03/22 05:05 [place] # (Auto) 0.6 10^3/uL (0.2-0.9) 04/03/22 05:05 Eos # (Auto) 0.2 10^3/uL (0.0-0.8) 04/03/22 05:05 Baso # (Auto) 0.0 10^3/uL (0.0-0.1) 04/03/22 05:05 Nucleated RBC % (auto) 0 % 04/03/22 05:05 Nucleated RBCs # 0.0 /100WBC 04/03/22 05:05 PT 13.90 SECONDS (12.1-14.9) 04/02/22 03:10 INR 1.04 (0.8-1.2) 04/02/22 03:10 Sodium 138 mmol/L (136-145) 04/03/22 05:05 Potassium 3.8 mmol/L (3.5-5.1) 04/03/22 05:05 Chloride 105 mmol/L (98-107) 04/03/22 05:05 Carbon Dioxide 24 mmol/L (22-29) 04/03/22 05:05 Anion Gap 12.8 (5-19) 04/03/22 05:05 BUN 32 mg/dL (8-23) H 04/03/22 05:05 Creatinine 1.1 mg/dL (0.7-1.2) 04/03/22 05:05 GFR Calculation Not Reportable 04/03/22 05:05 Glucose 78 mg/dL (65-115) 04/03/22 05:05 POC Glucose 123 mg/dL (70-110) H 04/03/22 11:12 Calculated Osmolality 292 mOsm/kg (285-295) 04/03/22 05:05 Calcium 8.8 mg/dL (8.5-10.5) 04/03/22 05:05 Magnesium 2.4 mg/dL (1.7-2.3) H 04/02/22 03:10 Total Bilirubin 0.4 mg/dL (0.15-1.2) 04/03/22 05:05 AST 25 U/L (0-40) 04/03/22 05:05 ALT 21 U/L (0-41) 04/03/22 05:05 Alkaline Phosphatase 90 U/L (40-130) 04/03/22 05:05 Ammonia 28 umol/L (16-60) 04/02/22 07:37 Total Protein 5.9 g/dL (6.6-8.7) L 04/03/22 05:05 Albumin 3.2 g/dL (3.5-5.2) L 04/03/22 05:05 Globulin 2.7 g/dL (1.3-4.6) 04/03/22 05:05 Lipase 36 U/L (13-60) 04/02/22 03:10 Vitamin B12 253 pg/mL (232-1245) 04/02/22 07:37 Folate 7.1 ng/mL (4.5-32.2) 04/02/22 07:37 TSH 1.48 uIU/mL (0.27-4.20) 04/02/22 07:37 Urine Color Yellow (Yellow) 04/02/22 04:04 Urine Appearance Clear (CLEAR) 04/02/22 04:04 Urine pH 5 (5-7) 04/02/22 04:04 Ur Specific [place] 1.020 (1.005-1.030) 04/02/22 04:04 Urine Protein Neg (Negative) 04/02/22 04:04 Urine Glucose (UA) Norm (Normal) 04/02/22 04:04 Urine Ketones Negative (Negative) 04/02/22 04:04 Urine Blood Neg (Negative) 04/02/22 04:04 Urine Nitrate Negative (Negative) 04/02/22 04:04 Urine Bilirubin Neg (Negative) 04/02/22 04:04 Urine Urobilinogen Norm mg/dL (Negative) 04/02/22 04:04 Ur Leukocyte Esterase Negative (Negative) 04/02/22 04:04 Urine Opiates Screen Negative ng/mL (Negative) 04/02/22 04:04 Ur Barbiturates Screen Negative ng/mL (Negative) 04/02/22 04:04 Ur Phencyclidine Scrn Negative ng/mL (Negative) 04/02/22 04:04 Ur Amphetamines Screen Negative ng/mL (Negative) 04/02/22 04:04 U Benzodiazepines Scrn Negative ng/mL (Negative) 04/02/22 04:04 Urine Cocaine Screen Negative ng/mL (Negative) 04/02/22 04:04 U Marijuana (THC) Screen Negative ng/mL (Negative) 04/02/22 04:04 Ethyl Alcohol < 10 mg/dL (0-10) 04/02/22 03:10 Hepatitis A IgM Ab Non-reactive (Nonreactive) 04/02/22 07:37 Hep Bs Antigen Non-reactive (Nonreactive) 04/02/22 07:37 Hep Bs Antibody 3.5 (11.5-1000) L 04/02/22 07:37 Hep B Core Total Ab Non-reactive (Nonreactive) 04/02/22 07:37 Hepatitis C Antibody Non-reactive (Nonreactive) 04/02/22 07:37 Vitals Last Vital Signs Temp 97.4 F L 04/03/22 07:54 Pulse 60 04/03/22 07:54 Resp 16 04/03/22 07:54 BP 142/76 04/03/22 07:54 Pulse Ox 98 04/03/22 07:54 O2 Del Method 04/03/22 07:54 Discharge Plan Discharge Patient Disposition: Home Condition: Stable Prescriptions: New losartan 50 mg Tablet 50 mg PO DAILY Qty: 30 0RF pantoprazole 40 mg Tablet,Delayed Release (Dr/Ec) 40 mg PO DAILY Qty: 30 0RF thiamine mononitrate (vit B1) [Vitamin B-1 (mononitrate)] 100 mg Tablet 100 mg PO DAILY Qty: 30 0RF divalproex [Depakote Sprinkles] 125 mg capsule, delayed rel sprinkle 125 mg PO TID 30 Days Qty: 90 0RF donepezil [Aricept] 10 mg tablet 10 mg PO DAILY Qty: 30 0RF Continued amlodipine 10 mg tablet 10 mg PO DAILY Discontinued potassium chloride 20 mEq tablet extended release 20 meq PO DAILY Qty: 30 7RF losartan-hydrochlorothiazide 50-12.5 mg tablet 1 tab PO DAILY Qty: 90 3RF Rx Instructions: Replaces taking the HCTZ 25mg pill and the losartan 50mg pill for blood pressure Discharge Orders: Discharge Order (Routine); Ordered 04/03/22 Ordered By: Yong Ray Referrals: Shabana Don MD [Primary Care Provider] - 7-10 days Discharge Diet: Usual diet Discharge Activity: Resume usual activity and Increase activity as tolerated Patient Instructions: Opioid Safety Activity Restrictions/Additional Instructions: Please follow-up with a primary care provider within next 1 week. For blood pressures take losartan 50 mg daily and amlodipine 10 mg daily. Depakote 3 times a day and donepezil has been added for dementia. Discharge Attestations Time Spent in Discharge Care*: greater than 30 min Specific Discharge Activities: educating and/or supporting family/caregiver, discussing with case making machine operator/social workers/dc planners, documenting/other paperwork and evaluating patient/reviewing data Status at Discharge: Cognitive status at discharge: moderately impaired cognition, Behavioral status at discharge: cooperative, Functional status at discharge: uses cane/walker, Overall status at discharge: patient is back to baseline Quality Metrics Clinical Quality Measures [ No reported AMI, CVA or VTE this stay] Coding Level of Care Code Acute Chg FW DC note Diagnoses Altered mental status R41.82
[2022-04-03 11:33] LABS: RPR w(Moniotor) w/REFL Titer NON-REACTIVE (NON-REACTIVE)
[2022-04-03 11:38] VITALS: BP 137/75; PULSE 62; RESP 17; TEMP 36.6; O2SAT 97
== END 2022-04-03 13:20 | disposition home or self-care (01) ==
LOC: ER 04:48 → ICU 07:52 → MEDSURG 18:40
PROVIDERS: Admitting Provider Student in an Organized Health Care Education/Training Program; Emergency Provider Emergency Medicine; PCP Family Medicine; Visit Provider Student in an Organized Health Care Education/Training Program
DX: R41.82 Altered mental status, unspecified (principal); F10.21 Alcohol dependence, in remission; I10 Essential (primary) hypertension; Z91.81 History of falling; F17.210 Nicotine dependence, cigarettes, uncomplicated; R16.0 Hepatomegaly, not elsewhere classified; K80.20 Calculus of gallbladder without cholecystitis without obstruction
CPT/HCPCS: 36415; 36416; 70450; 71045; 76705; 80053; 80306; 80307; 81003; 82140; 82607; 82746; 82962; 83690; 83735; 84443; 85025; 85610; 86592; 86705; 86706; 86709; 86803; 87340; 93005; 96361; 96372; 96374; 96376; 99285; G0378; J1650; J3411; J3490; J7030

== ENCOUNTER → 2022-04-22 12:44 | Outpatient (BNVA) | payer MEDICARE, SELFPAY | PROVIDERS: PCP Family Medicine; Visit Provider Family Medicine | DX: R41.82 Altered mental status, unspecified (principal); I10 Essential (primary) hypertension | CPT/HCPCS: 80053; 85025 ==

== ENCOUNTER → 2022-06-01 11:10 | Outpatient (BNVA) | payer MEDICARE, MEDICAID, SELFPAY | PROVIDERS: PCP Family Medicine; Visit Provider Family Medicine | DX: I10 Essential (primary) hypertension (principal); F10.10 Alcohol abuse, uncomplicated; F03.90 Unspecified dementia, unspecified severity, without behavioral disturbance, psychotic disturbance, mood disturbance, and anxiety | CPT/HCPCS: 80053; 85025 ==

== ENCOUNTER → 2022-08-17 14:41 | Outpatient (BNVA) | payer MEDICARE, MEDICAID, SELFPAY | PROVIDERS: PCP Family Medicine; Visit Provider Family Medicine | DX: R82.998 Other abnormal findings in urine (principal); I87.2 Venous insufficiency (chronic) (peripheral); I10 Essential (primary) hypertension; F03.90 Unspecified dementia, unspecified severity, without behavioral disturbance, psychotic disturbance, mood disturbance, and anxiety; F10.10 Alcohol abuse, uncomplicated | CPT/HCPCS: 80048; 81000 ==

== ENCOUNTER → 2022-10-08 10:08 | Outpatient (BNVA) | payer MEDICARE, MEDICAID, SELFPAY | PROVIDERS: PCP Family Medicine; Visit Provider Psychiatry & Neurology Neurology | DX: I10 Essential (primary) hypertension; E55.9 Vitamin D deficiency, unspecified; R32 Unspecified urinary incontinence; G45.1 Carotid artery syndrome (hemispheric); G47.30 Sleep apnea, unspecified; G93.40 Encephalopathy, unspecified; R26.81 Unsteadiness on feet; G20 Parkinson's disease; K59.00 Constipation, unspecified; R27.8 Other lack of coordination; F10.27 Alcohol dependence with alcohol-induced persisting dementia; R39.15 Urgency of urination; G47.52 REM sleep behavior disorder | CPT/HCPCS: 99204 ==

== ENCOUNTER 2022-10-09 10:09 | Outpatient (CLI) | payer MEDICARE, MEDICAID, SELFPAY ==
[2022-10-09 10:54] LABS: Basophils # 0.1 10^3/uL (0.0-0.1); Basophils % 0.8 %; Eosinophils # 0.3 10^3/uL (0.0-0.8); Eosinophils % 3.9 %; Lymphocytes # 2.2 10^3/uL (0.8-4.8); Lymphocytes % 30.2 %; Mean Corpuscular HGB Conc 32.5 g/dL (30.0-36.0); Mean Corpuscular Hemoglobin 30.3 pg (28.0-34.0); Mean Corpuscular Volume 93.2 fl (80-94); Mean Platelet Volume 11.7 fL (7.4-10.4); Monocytes # 0.5 10^3/uL (0.2-0.9); Monocytes % 6.8 %; Nucleated Red Blood Cells % 0 %; Platelet Count 161 10^3/cmm (130-400); Red Blood Count 4.29 10^6/uL (4.1-5.3); Red Cell Distribution Width 12.2 % (12.1-15.1); White Blood Count 7.2 10^3/uL (4.0-10.0)
[2022-10-09 11:10] LABS: Ammonia 17 umol/L (16-60)
[2022-10-09 11:30] LABS: 25 Hydroxy Vitamin D 16 ng/mL (30-100); Alanine Aminotransferase 15 U/L (0-41); Albumin Level 4.3 g/dL (3.5-5.2); Alkaline Phosphatase 93 U/L (40-130); Anion Gap 14.3 (5-19); Aspartate Amino Transferase 15 U/L (0-40); Blood Urea Nitrogen 22 mg/dL (8-23); Calcium 8.9 mg/dL (8.5-10.5); Carbon Dioxide 27 mmol/L (22-29); Chloride 101 mmol/L (98-107); Chol HDL Ratio 2.81 mg/dL (1.0-5.00); Cholesterol 152 mg/dL (0-200); Globulin 2.9 g/dL (1.3-4.6); Glucose 100 mg/dL (65-115); HDL Cholesterol 54 mg/dL (60-100); Homocysteine 17.49; LDL Cholesterol Calculated 74 mg/dL (50-129); LDL HDL Ratio 1.37 RATIO (0.00-3.22); Magnesium 2.2 mg/dL (1.7-2.3); Osmolality Calculated 289 mOsm/kg (285-295); Potassium 4.3 mmol/L (3.5-5.1); Sodium 138 mmol/L (136-145); Thyroid Stimulating Hormone 1.66 uIU/mL (0.27-4.20); Total Bilirubin 0.3 mg/dL (0.15-1.2); Total Protein 7.2 g/dL (6.6-8.7); Triglycerides 121 mg/dL (0-150); Vitamin B12 354 pg/mL (232-1245)
[2022-10-09 11:46] LABS: Folate Level 7.3 ng/mL (4.5-32.2)
[2022-10-09 11:59] LABS: Free T4 Free Thyroxine 1.03 ng/dL (0.82-1.77); T3 Free 2.6 PG/ML (2.0-4.4)
[2022-10-11 07:35] LABS: PROTEIN, TOTAL 7.1 g/dL (6.1-8.1)
[2022-10-13 14:34] LABS: Lymes IGG WB <0.90 index
[2022-10-13 16:29] LABS: ALPHA 1 GLOBULIN 0.3 g/dL (0.2-0.3); ALPHA 2 GLOBULIN 0.8 g/dL (0.5-0.9); BETA 1 GLOBULIN 0.4 g/dL (0.4-0.6); BETA 2 GLOBULIN 0.3 g/dL (0.2-0.5); GAMMA GLOBULIN 1.3 g/dL (0.8-1.7)
[2022-10-14 07:59] LABS: Treponema pallidum Ab NON-REACTIVE (NON-REACTIVE)
[2022-10-15 11:24] LABS: Methylmalonic Acid 415 nmol/L (87-318)
== END 2022-10-09 10:10 | disposition home or self-care (01) ==
LOC: LAB 10:13
PROVIDERS: PCP Family Medicine; Visit Provider Psychiatry & Neurology Neurology
DX: F03.90 Unspecified dementia, unspecified severity, without behavioral disturbance, psychotic disturbance, mood disturbance, and anxiety (principal); I10 Essential (primary) hypertension; E55.9 Vitamin D deficiency, unspecified; R41.3 Other amnesia; R32 Unspecified urinary incontinence
CPT/HCPCS: 36415; 80053; 80061; 82140; 82306; 82607; 82746; 83090; 83735; 83921; 84153; 84155; 84165; 84439; 84443; 84481; 85025; 86334; 86617; 86780

== ENCOUNTER 2022-10-27 12:59 | Outpatient (CLI) | payer MEDICARE, MEDICAID, SELFPAY ==
--- NOTE | 2022-10-27 13:15 | USCV_ITS ---
Steve Garcia Age: 72 Gender: M : 1950 Exam Date: 10/27/2022 13:32 Ordering Phys: Hieu Michaels MD Technologist: Calixto Petersen [place] [facility] [place]: carotid artery syndrome Risk Factors: Previous Vascular Surgery: Right Brachial BP: / Left Brachial BP: / Right Left Velocity (cm/s) Spectral Plaque Velocity (cm/s) Spectral Plaque Syst/Diast Broadening Syst/Diast Broadening 120.20/7.70 Prox CCA 100.30/ 9.40 110.30/8.80 Mid CCA 95.70 / 15.00 77.70/ 11.70 Distal CCA 69.80 / 10.90 32.30/ 5.40 Prox ICA 36.30 / 7.30 41.45/ 10.40 Mid ICA 50.40 / 10.00 77.50/ 11.60 Distal ICA 42.50 / 11.30 114.30 ECA 84.30 0.38 ICA/CCA 0.53 Antegrade Vertebral Antegrade 47.90/ 14.50 cm/s 48.60/ 13.10 cm/s Tri Subclavian Tri 99.10 112.5 0 FINDINGS Comparison: none available. No significant elevation of systolic or diastolic velocities. Waveforms are normal. Diffuse bilateral scattered calcified plaque and intimal thickening throughout the common carotid arteries and extending through the bifurcation. Antegrade vertebral arteries. CONCLUSIONS Bilateral ICA stenosis less than 50%. Mild, diffuse carotid atherosclerosis. Dr. Catherine Edwards DO (Electronically Signed) Final Date: 28 October 2022 07:37 S
--- NOTE | 2022-10-27 13:45 | USCV_ITS ---
Jose Steve Age: 72 Gender: M : 1950 Exam Date: 10/27/2022 14:04 Ordering Phys: Hieu Michaels MD Technologist: Calixto Petersen Exam Location: [facility] [place] Indication: dementia BP: 138 / 68 HR: 55 Rhythm: Sinus Technical Quality: Adequate MEASUREMENTS (Male / Female) Normal Values 2D ECHO LVOT Diameter 2.1 cm LV Ejection Fraction MOD 2C 60.2 % LV Ejection Fraction 2C AL 59.6 % LA Diameter 3.6 cm LA Width 3.1 cm LA Height 5.3 cm RA Width 3.1 cm RA Height 5.4 cm Aorta at Sinotubular Diameter 2.7 cm IVC Diameter 1.5 cm M-MODE Aortic Annulus Diameter 2.6 cm LA Ao Ratio MM 1.4 MV E Point Septal Separation 0.5 cm DOPPLER AV Peak Velocity 191.7 cm/s LVOT Peak Velocity 144.0 cm/s AV Area Cont Eq vti 2.7 cm squared AV Area Cont Eq pk 2.5 cm squared MV Peak Velocity 102.0 cm/s MV Area PHT 3.5 cm squared Mitral E to A Ratio 0.9 MV E' Velocity 38.5 cm/s Mitral E to MV E' Ratio 9.1 Mitral E to LV E' Lateral Ratio 8.6 Mitral E to LV E' Septal Ratio 9.6 TR Peak Velocity 162.4 cm/s TR Peak Gradient 10.6 mmHg TR Mean Velocity 115.2 cm/s TR Mean Gradient 5.8 mmHg TR Velocity Time Integral 38.6 cm Right Atrial Pressure 3.0 mmHg Pulmonary Artery Systolic Pressu 13.6 mmHg PV Peak Velocity 93.3 cm/s RV Acceleration Time 0.1 s RV Ejection Time 0.3 s RV AcT/ET 0.4 FINDINGS Left Ventricle Left ventricle is normal size. LV systolic function is normal with EF 55 to 60%. No regional wall motion abnormalities are seen. Grade 1 diastolic dysfunction Right Ventricle Normal in size and function Right Atrium Normal in size Left Atrium Dilated Mitral Valve Mitral valve is thickened. Mild mitral regurgitation. Aortic Valve Aortic valve is thickened and calcified. No significant stenosis or regurgitation. Tricuspid Valve Mild tricuspid regurgitation. Pulmonary artery systolic pressure is normal. Pulmonic Valve Not well visualized. Mild pulmonic regurgitation. Pericardium Normal Aorta Normal IVC Appears to be normal CONCLUSIONS LV systolic function is normal with EF of 55 to 60%. Grade 1 diastolic dysfunction. Left atrial dilation Mild mitral regurgitation Mild tricuspid regurgitation Mild pulmonic regurgitation No comparison studies are available. Helder Christiansen MD (Electronically Signed) Final Date: 07 November 2022 13:39 S
--- NOTE | 2022-10-27 15:15 | MR_ITS ---
WS: [id number] MRI HEAD WITHOUT CONTRAST TECHNIQUE: Sagittal T1, T2 axial, T2 axial FLAIR, axial and coronal T1 images, axial susceptibility w eighted imaging, axial diffusion weighted images, and coronal T2 images were obtained. CLINICAL INFORMATION: R41.3 - Other amnesia COMPARISON: CT 2021. FINDINGS: No evidence of restricted diffusion to suggest acute ischemia. Ventricular system and basal cisterns are patent. Moderate small vessel changes. Moderate parenchymal volume loss. Small vessel changes in the mariana. Normal posterior fossa. Normal vascular flow voids at the skull base. No extra-axial fluid collection s. No mass or mass effect. Mild mucosal thickening in the paranasal sinuses. Mastoid air cells well a erated. No hemosiderin on susceptibly weighted images. Normal optic chiasm and pituitary infundibulum . Moderate symmetric atrophy temporal lobes and hippocampal formations. Normal posterior nasopharynx. Normal parapharyngeal fat. MR/MR head wo con* [id number] IMPRESSION: 1. No evidence of restricted diffusion to suggest acute ischemia. 2. Moderate small vessel changes with moderate parenchymal volume loss. 3. No hemosiderin on susceptibly weighted images. 4. Moderate symmetric atrophy temporal lobes and hippocampal formations 5. No other suspicious findings.
== END 2022-10-27 13:00 | disposition home or self-care (01) ==
PROVIDERS: PCP Family Medicine; Referring Provider Internal Medicine; Visit Provider Psychiatry & Neurology Neurology
DX: F03.90 Unspecified dementia, unspecified severity, without behavioral disturbance, psychotic disturbance, mood disturbance, and anxiety (principal); G31.89 Other specified degenerative diseases of nervous system; G45.1 Carotid artery syndrome (hemispheric); R41.3 Other amnesia
CPT/HCPCS: 70551; 93306; 93880; 99204

== ENCOUNTER → 2022-10-29 10:19 | Outpatient (BNVA) | payer MEDICARE, MEDICAID, SELFPAY | PROVIDERS: PCP Family Medicine; Visit Provider Psychiatry & Neurology Neurology | DX: G25.3 Myoclonus (principal); F10.10 Alcohol abuse, uncomplicated; R41.3 Other amnesia | CPT/HCPCS: 95813 ==

== ENCOUNTER → 2023-01-11 12:42 | Outpatient (BNVA) | payer MEDICARE, MEDICAID, SELFPAY | PROVIDERS: PCP Family Medicine; Visit Provider Psychiatry & Neurology Neurology | DX: E53.8 Deficiency of other specified B group vitamins (principal); R94.01 Abnormal electroencephalogram [EEG]; R41.3 Other amnesia; E55.9 Vitamin D deficiency, unspecified; F10.11 Alcohol abuse, in remission; F17.200 Nicotine dependence, unspecified, uncomplicated | CPT/HCPCS: 99212 ==

== ENCOUNTER 2023-01-13 12:05 | Oncology outpatient (recurring) (ONCR) | payer MEDICARE, MEDICAID, SELFPAY ==
[2023-01-13 14:03] LABS: Basophils # 0.1 10^3/uL (0.0-0.1); Basophils % 0.9 %; Eosinophils # 0.3 10^3/uL (0.0-0.8); Eosinophils % 3.9 %; Lymphocytes # 2.2 10^3/uL (0.8-4.8); Lymphocytes % 32.3 %; Mean Corpuscular HGB Conc 33.8 g/dL (30-55); Mean Corpuscular Hemoglobin 30.4 pg (27-33); Mean Corpuscular Volume 90.1 fl (82-101); Mean Platelet Volume 11.7 fL (7.4-10.4); Monocytes # 0.4 10^3/uL (0.2-0.9); Neutrophils # 3.79 10^3/uL (1.8-7.7); Neutrophils % 56.6 %; Nucleated Red Blood Cells % 0 %; Platelet Count 166 10^3/cmm (157-399); Red Blood Count 4.44 10^6/uL (3.85-5.65); Red Cell Distribution Width 12.2 % (12.1-15.1); White Blood Count 6.69 10^3/uL (3.29-11.43)
[2023-01-13 14:29] LABS: Alanine Aminotransferase 16 U/L (0-41); Albumin Level 4.5 g/dL (3.5-5.2); Alkaline Phosphatase 88 U/L (40-130); Anion Gap 13.2 (5-19); Aspartate Amino Transferase 15 U/L (0-40); Blood Urea Nitrogen 24 mg/dL (8-23); Carbon Dioxide 26 mmol/L (22-29); Chloride 103 mmol/L (98-107); Globulin 2.8 g/dL (1.3-4.6); Glucose 113 mg/dL (65-115); Immunoglobulin IGA 187 mg/dL (70-400); Immunoglobulin IGG 1349 mg/dL (700-1600); Immunoglobulin IGM 190 mg/dL (40-230); Osmolality Calculated 291 mOsm/kg (285-295); Potassium 4.2 mmol/L (3.5-5.1); Sodium 138 mmol/L (136-145); Total Bilirubin 0.3 mg/dL (0.15-1.2); Total Protein 7.3 g/dL (6.6-8.7)
[2023-01-14 13:04] LABS: Beta-2-Microglobulin 2.71 mg/L (< OR = 2.51)
[2023-01-15 05:15] LABS: PROTEIN, TOTAL 7.2 g/dL (6.1-8.1)
[2023-01-15 14:10] LABS: KAPPA LIGHT CHAIN, FREE, SERUM 29.6 mg/L (3.3-19.4); KAPPA/LAMBDA LIGHT CHAINS FREE 0.73 (0.26-1.65); LAMBDA LIGHT CHAIN, FREE, SERU 40.4 mg/L (5.7-26.3)
[2023-01-22 12:54] LABS: ABNORMAL PROTEIN BAND 1 0.5 g/dL (NONE DETECTED); ALBUMIN 4.1 g/dL (3.8-4.8); ALPHA 1 GLOBULIN 0.3 g/dL (0.2-0.3); ALPHA 2 GLOBULIN 0.7 g/dL (0.5-0.9); BETA 1 GLOBULIN 0.4 g/dL (0.4-0.6); BETA 2 GLOBULIN 0.3 g/dL (0.2-0.5); GAMMA GLOBULIN 1.4 g/dL (0.8-1.7)
== END 2023-01-14 23:59 | disposition home or self-care (01) ==
PROVIDERS: PCP Internal Medicine; Visit Provider Internal Medicine Medical Oncology
DX: R77.8 Other specified abnormalities of plasma proteins (principal); E53.8 Deficiency of other specified B group vitamins; Z79.899 Other long term (current) drug therapy
CPT/HCPCS: 36415; 80053; 82232; 82784; 83883; 84155; 84165; 85025; 86334; 99205

== ENCOUNTER 2024-06-30 12:13 | Inpatient (IN) | payer MEDICARE, MEDICAID, SELFPAY ==
[2024-06-30] VITALS (40 sets, daily range): BP systolic 56–153; BP diastolic 35–97; PULSE 74–160; RESP 12–33; TEMP 36–37.3; O2SAT 78–99
--- NOTE | 2024-06-30 12:21 | ECG_ITS ---
[facility] Test Date: 2024-06-30 Pat Name: Steve Garcia Department: Room: Gender: Male Drawing Operator: : 1950 Requested By: Gabriel Faustin Order Number: [id number] Reading MD: GABI MARTE Measurements Intervals [place] Rate: 73 P: 57 NJ: 159 QRS: 12 QRSD: 76 T: 52 QT: 382 QTc: 421 Interpretive Statements SINUS RHYTHM Compared to ECG 04/02/2022 03:17:27 No significant changes Electronically Signed On 07-01-2024 19:18:22 [employer]OR [employer]OM[employer] SALESPERSON by GABI MARTE [email or web address]
--- NOTE | 2024-06-30 12:21 | CT_ITS ---
WS: [id number] CT HEAD TECHNIQUE: Noncontrast CT of the head obtained from the skullbase to the vertex. CLINICAL INFORMATION: ams COMPARISON: 2022 DLP: 1147.[address] scans at [facility] use at least one of these dose optimization techniques: automated exposure control; mA and/or kV adjustment per patient size (includes targeted exams where dose is matched to clinical indication); or iterative reconstruction. FINDINGS: No evidence of intracranial hemorrhage or mass effect. Ventricular system and basal cisterns are patent. Moderate small vessel changes with moderate parenchymal volume loss. No extra-axial fluid collections. No evidence of mass or mass effect. Vascular calcification. Small vessel changes in the mariana. Small mass in the sphenoid sinus. Mucosal thickening in the paranasal sinuses. Mastoid air cells are well aerated. Normal posterior nasopharynx. CT/CT head wo con* [id number] IMPRESSION: 1. No evidence of intracranial hemorrhage or mass effect. 2. No acute intracranial findings.
--- NOTE | 2024-06-30 12:21 | XR_ITS ---
WS: [id number] XR chest 1V portable [id number] REASON FOR EXAM: ams FINDINGS: Moderate tortuosity and ectasia of the thoracic aorta. Mild cardiomegaly. Compared to a previous examination of 04/02/2022, there is an oblique linear opacity in the right lower lung field compatible atelectasis/fibrotic scar. The chest is otherwise unchanged compared to the previous examination with no acute pulmonary parenchymal or pleural abnormality. Mild degenerative spondylosis of the thoracic spine. XR/XR chest 1V portable [id number] IMPRESSION: Stable chest with no acute abnormality as above.
--- NOTE | 2024-06-30 12:27 | ED_ITS ---
HPI - General Adult 2 General: Chief complaint: Altered Mental Status Stated complaint: flu - decreased intake Time Seen by Provider: 06/30/24 12:16 Source: EMS Mode of arrival: EMS Limitations: altered mental status History of Present Illness: 74-year-old male is here from nursing [facility] per EMS patient was diagnosed with the flu last week he has had decreased oral intake and dehydration per EMS patient has had no intake the last 2 days has become increasingly weak and altered he has a history dementia but per EMS typically is able to ambulate answer questions here he is not answering any questions appears extremely dehydrated no known vomiting or diarrhea. Related Data Home Medications ?Medication ?Instructions ?Recorded ?Confirmed amlodipine 5 mg tablet 5 mg PO DAILY 06/30/2406/30 Previous Rx's ?Medication ?Instructions ?Recorded pantoprazole 40 mg tablet,delayed 40 mg PO DAILY #30 t abs 04/03/22 release Held on 04/07/22. Instructions: Doctor's Order losartan 50 mg tablet 50 mg PO DAILY #90 tabs 10/06 cholecalciferol (vitamin D3) 1,250 50,000 unit PO .wee kly #12 caps 01/11/23 mcg (50,000 unit) capsule levetiracetam 500 mg tablet 500 mg PO BID #90 tabs (Keppra) thiamine mononitrate (vit B1) 100 100 mg PO DAILY #60 tabs 01/11/23 mg tablet (Vitamin B-1 (mononitrate)) Allergies Allergy/AdvReac Type Severity Reaction Status Date / Time Iodinated Contrast Media Allergy hives Verified 01/13/23 12:35 Review of Systems 2 General: Reports: ROS unobtainable due to mental status PFSH ED 2 PFSH: Medical History Alcohol abuse Cerumen debris on tympanic membrane of right ear Hypertension Major depression Peripheral neuropathic gait Tobacco abuse Social History (Updated 01/13/23 @ 12:39 by Nathalie Garcia MA) Smoking and tobacco/nicotine status: current every day tobacco/nicotine user cigarettes Packs smoked per day: 0.02 [ Other cigarette details: weekly] Alcohol intake: never Substance/Drug Use: never Adopted: No Caregiver/support person: No Lives independently: No Household members: family service: No Current occupational status: retired Sexually active: Yes Do you think of yourself as: Straight/Heterosexual Current gender identity: Male Physical Exam 2 Const: COMMON NORMALS: negative for patient oriented x3 GENERAL APPEARANCE: ill appearing HENMT: COMMON NORMALS: normocephalic and atraumatic HEAD & SCALP: n ormocephalic and atraumatic MOUTH: moist mucous membranes abnormal Details: parched Eye: COMMON NORMALS: Equal, round and reactive pupils present and EOMs intact bilaterally PUPIL: Yes Equal, round and reactive pupils present Neck/C-Spine: COMMON NORMALS: full ROM and supple Chest: COMMONS NORMALS: normal inspection of the chest Resp: COMMON NORMALS: normal respiratory effort, No retractions, No use of accessory muscles and clear to auscultation bilaterally AUSCULTATION: clear to auscultation bilaterally Cardio: COMMON NORMALS: regular rate, regular rhythm and No murmurs present (Cardio) RATE: regular rate RHYTHM: regular rhythm GI: COMMON NORMALS: Normal to inspection, nondistended, normoactive bowel sounds present, Soft to palpation, non-tender and no masses PALPATION: Yes Soft to palpation Extremity: COMMON NORMALS: normal to inspection and full ROM Neuro: COMMON NORMALS: negative for patient oriented x3 Psych: COMMON NORMALS: negative for mental status grossly normal Skin: COMMON NORMALS: no rashes or lesions noted and no wounds GENERAL SKIN EXAM: no rashes or lesions noted Course 2 Vital Signs: Vital signs: Vital Signs Temperature 99.2 F 06/30/24 12:15 Pulse Rate 120 H 06/30/24 15:15 Respiratory Rate 25 H 06/30/24 15:15 Blood Pressure 129/81 06/30/24 15:15 Pulse Oximetry 86 L 06/30/24 15:15 Oxygen Delivery Me thod Room Air 06/30/24 12:15 MDM - General Adult Medical Decision Making Patient presents with acute kidney injury likely from dehydration he was hypotensive here but blood pressures improved after IV fluids he has no signs of sepsis send normal lactate. He did go in A-fib with RVR here did start him on amiodarone I spoke to the hospitalist will admit at this time. Medical Records I reviewed the patient's medical records. Lab Data I reviewed the patient's lab results. 06/30/24 13:06 06/30/24 13:06 Radiology Impressions Chest X-Ray 06/30/24 12:21 IMPRESSION: Stable chest with no acute abnormality as above. Head CT 06/30/24 12:21 IMPRESSION: 1. No evidence of intracranial hemorrhage or mass effect. 2. No acute intracranial findings. Laboratory Results WBC 12.27 10^3/uL (3.29-11.43) H 06/30/24 13:06 RBC 4.76 10^6/uL (3.85-5.65) 06/30/24 13:06 Hgb 14.30 g/dL (11.27-16.99) 06/30/24 13:06 Hct 44.3 % (37-53) 06/30/24 13:06 MCV 93.1 fl (82-101) 06/30/24 13:06 MCH 30.0 pg (27-33) 06/30/24 13:06 MCHC 32.3 g/dL (30-55) 06/30/24 13:06 RDW 13.5 % (12.1-15.1) 06/30/24 13:06 Plt Count 169 10^3/cmm (157-399) 06/30/24 13:06 MPV 10.9 fL (7.4-10.4) H 06/30/24 13:06 Neut % (Auto) 80.5 % 06/30/24 13:06 Lymph % (Auto) 9.7 % 06/30/24 13:06 Mercer % (Auto) 8.2 % 06/30/24 13:06 Eos % (Auto) 0.7 % 06/30/24 13:06 Baso % (Auto) 0.2 % 06/30/24 13:06 Neut # (Auto) 9.87 10^3/uL (1.8-7.7) H 06/30/24 13:06 Lymph # (Auto) 1.2 10^3/uL (0.8-4.8) 06/30/24 13:06 Mercer # (Auto) 1.0 10^3/uL (0.2-0.9) H 06/30/24 13:06 Eos # (Auto) 0.1 10^3/uL (0.0-0.8) 06/30/24 13:06 Baso # (Auto) 0.0 10^3/uL (0.0-0.1) 06/30/24 13:06 Nucleated RBC % (auto) 0 % 06/30/24 13:06 Nucleated RBCs # 0.0 /100WBC 06/30/24 13:06 PT 17.50 SECONDS (12.1-14.9) H 06/30/24 13:06 INR 1.35 (0.8-1.2) H 06/30/24 13:06 Sodium 145 mmol/L (136-145) 06/30/24 13:06 Potassium 4.4 mmol/L (3.5-5.1) 06/30/24 13:06 Chloride 105 mmol/L (98-107) 06/30/24 13:06 Carbon Dioxide 17 mmol/L (22-29) L 06/30/24 13:06 Anion Gap 27.4 (5-19) H 06/30/24 13:06 BUN 140 mg/dL (8-23) H* D 06/30/24 13:06 Creatinine 9.1 mg/dL (0.7-1.2) H* 06/30/24 13:06 GFR Calculation Not Reportable 06/30/24 13:06 Glucose 127 mg/dL (65-115) H 06/30/24 13:06 POC Glucose 135 mg/dL (70-110) H 06/30/24 12:46 Calculated Osmolality 347 mOsm/kg (285-295) H 06/30/24 13:06 Lactic Acid 1.5 mmol/L (0.5-2.2) 06/30/24 13:06 Calcium 9.2 mg/dL (8.5-10.5) 06/30/24 13:06 Magnesium 2.8 mg/dL (1.7-2.3) H 06/30/24 13:06 Total Bilirubin 0.5 mg/dL (0.15-1.2) 06/30/24 13:06 AST 6 U/L (0-40) 06/30/24 13:06 ALT 10 U/L (0-41) 06/30/24 13:06 Alkaline Phosphatase 85 U/L (40-130) 06/30/24 13:06 Total Protein 7.3 g/dL (6.6-8.7) 06/30/24 13:06 Albumin 3.2 g/dL (3.5-5.2) L 06/30/24 13:06 Globulin 4.1 g/dL (1.3-4.6) 06/30/24 13:06 Lipase 26 U/L (13-60) 06/30/24 13:06 TSH 0.91 uIU/mL (0.27-4.20) 06/30/24 13:06 Urine Color Yellow (Yellow) 06/30/24 14:35 Urine Appearance Clear (CLEAR) 06/30/24 14:35 Urine pH 5.0 (5-7) 06/30/24 14:35 Ur Specific [place] 1.014 (1.005-1.030) 06/30/24 14:35 Urine Protein 1+ (Negative) A 06/30/24 14:35 Urine Glucose (UA) Negative (Normal) 06/30/24 14:35 Urine Ketones Negative (Negative) 06/30/24 14:35 Urine Blood 1+ (Negative) A 06/30/24 14:35 Urine Nitrate Negative (Negative) 06/30/24 14:35 Urine Bilirubin Negative (Negative) 06/30/24 14:35 Urine Urobilinogen 0.2 mg/dL (Negative) 06/30/24 14:35 Ur Leukocyte Esterase Negative (Negative) 06/30/24 14:35 Urine RBC 21-50 /hpf (0-2) H 06/30/24 14:35 Urine WBC 0-5 /hpf (0-5) 06/30/24 14:35 Ur Squamous Epith Cells 0-5 /hpf (0-5) 06/30/24 14:35 Amorphous Sediment Not Reportable 06/30/24 14:35 Urine Bacteria None seen /hpf (NONE) 06/30/24 14:35 Hyaline Casts 1.21 /lpf 06/30/24 14:35 All radiology interpretation(s) finalized by discharge EKG Data EKG 1: I personally reviewed and interpreted this EKG as follows: EKG interpretation date: 06/30/24 EKG interpretation time: 12:21 Interpretation: nsr hr [address] elevation qrs 76 qtc 407 Computer generated interpretation: Chest X-Ray 06/30/24 12:21 IMPRESSION: Stable chest with no acute abnormality as above. Head CT 06/30/24 12:21 IMPRESSION: 1. No evidence of intracranial hemorrhage or mass effect. 2. No acute intracranial findings. EKG 2: I personally reviewed and interpreted this EKG as follows: EKG interpretation date: 06/30/24 EKG interpretation time: 15:47 Interpretation: afib rvr hr [address] elevation qrs 90 qtc 366 Computer generated interpretation: Chest X-Ray 06/30/24 12:21 IMPRESSION: Stable chest with no acute abnormality as above. Head CT 06/30/24 12:21 IMPRESSION: 1. No evidence of intracranial hemorrhage or mass effect. 2. No acute intracranial findings. Critical Care Time 2 Critical Care Time: Critical Care Time: Yes Total Critical Care Time: 45 Attestation: The high probability of a clinically significant, sudden or life threatening deterioration of the patient's dv system(s) required my full and direct attention, intervention and personal management. The critical care time is as shown. This time is in addition to time spent performing any reported procedures but includes the following: [x] Data and vital sign review and interpretation [x] Patient assessment, examination and intervention [x] Documentation [x] Medication orders and management Discharge Plan Discharge Patient Disposition: Admitted As Inpatient Admit Provider: Nikky Garnre Clinical Impression: Acute kidney injury, Acute dehydration, Atrial fibrillation with RVR Condition: Stable Coding Level of Care Code ED English And Reading Instructor for Johnnie Francis
[2024-06-30 12:49] LABS: Glucose Point of Care 135 mg/dL (70-110)
[2024-06-30] MEDS: sodium chloride 0.9% 1,000 ML 999 ML IV ×3 (13:08→20:43)
[2024-06-30 13:14] LABS: Basophils % 0.2 %; Eosinophils # 0.1 10^3/uL (0.0-0.8); Eosinophils % 0.7 %; Hematocrit 44.3 % (37-53); Lymphocytes # 1.2 10^3/uL (0.8-4.8); Lymphocytes % 9.7 %; Mean Corpuscular HGB Conc 32.3 g/dL (30-55); Mean Corpuscular Volume 93.1 fl (82-101); Mean Platelet Volume 10.9 fL (7.4-10.4); Monocytes % 8.2 %; Neutrophils # 9.87 10^3/uL (1.8-7.7); Neutrophils % 80.5 %; Nucleated Red Blood Cells % 0 %; Platelet Count 169 10^3/cmm (157-399); Red Blood Count 4.76 10^6/uL (3.85-5.65); Red Cell Distribution Width 13.5 % (12.1-15.1); White Blood Count 12.27 10^3/uL (3.29-11.43)
[2024-06-30 13:27] LABS: INR 1.35 (0.8-1.2)
[2024-06-30 13:32] LABS: Lactic Sepsis W/Reflex 1.5 mmol/L (0.5-2.2)
[2024-06-30 13:42] LABS: Alanine Aminotransferase 10 U/L (0-41); Albumin Level 3.2 g/dL (3.5-5.2); Alkaline Phosphatase 85 U/L (40-130); Anion Gap 27.4 (5-19); Aspartate Amino Transferase 6 U/L (0-40); Calcium 9.2 mg/dL (8.5-10.5); Carbon Dioxide 17 mmol/L (22-29); Chloride 105 mmol/L (98-107); Creatinine Clr Calc Pharmacy 7.5748; Globulin 4.1 g/dL (1.3-4.6); Glucose 127 mg/dL (65-115); Lipase 26 U/L (13-60); Magnesium 2.8 mg/dL (1.7-2.3); Potassium 4.4 mmol/L (3.5-5.1); Sodium 145 mmol/L (136-145); Thyroid Stimulating Hormone 0.91 uIU/mL (0.27-4.20); Total Bilirubin 0.5 mg/dL (0.15-1.2); Total Protein 7.3 g/dL (6.6-8.7)
[2024-06-30 13:49] LABS: Osmolality Calculated 347 mOsm/kg (285-295)
[2024-06-30 13:50] LABS: Blood Urea Nitrogen 140 mg/dL (8-23)
--- NOTE | 2024-06-30 14:50 | PM.HP ---
Providers/Chief Complaint Primary Care Provider: Jai Man DO Chief Complaint: flu - decreased intake History of Present Illness Steve Garcia is a 74 year old male With past medical history of hypertension, depression, alcohol abuse, dementia diagnosed 2 years ago who currently lives at a senior care presented to the hospital today with altered mental status. He was sent from the senior care for altered mental status. He is also had poor oral intake for the last few days. He has not been eating or drinking much. As per senior care they have been feeding him with a straw and giving him some water. He has been quite hypotensive at time of presentation to hospital. He was given 2 L IV fluids for which blood pressure responded to. At baseline patient is able to ambulate and talk and answer questions. He was diagnosed with flu last week. No known history of vomiting diarrhea or any nausea as per senior care report. Patient saw hematology in 2022 at which point there was small monoclonal spike on serum immunofixation. Repeat paraprotein studies SPEP immunofixation were ordered. Unsure of the results of those studies at this time. No family present at bedside at this time WBC count 12,000, INR 1.35, CO2 17, BUN 140, creatinine 9.1, magnesium 2.8, UA shows RBC 21-50 1+ blood 1+ protein. Nursing staff reports when they placed a Chamorro catheter a lot of blood clots were evacuated from bladder and patient initially evacuated 2 L of urine. ER nurse reports that patient responds and withdraws to pain and localizes to pain and was quite combative during Chamorro placement however is unable to have a conversation and is completely confused at this time. When seen at bedside patient is confused unable to provide any kind of history. He localizes to pain and is able to move all 4 extremities. When blood pressure cuff inflates he becomes more agitated. When his name is called he attempts to open his eyes but is unable to. Also desaturates down to 80s as he is breathing through his mouth. Currently nasal cannula in place. I have asked nurse to switch him to a oxygen mask at this time. Patient is in A-fib with RVR and currently on an amiodarone drip. Medications/Allergies Home Medications ?Medication ?Instructions ?Recorded ?Confirmed ?Last Taken ?Type pantoprazole 40 mg tablet,delayed 40 mg PO DAILY #30 tabs 04/03/22 06/30/24 06/30/24 Rx release Held on 04/07/22. Instructions: Doctor's Order losartan 50 mg tablet 50 mg PO DAILY #90 tabs 05/21/22 06/30/24 06/30/24 Rx cholecalciferol (vitamin D3) 1,250 50,000 unit PO .weekly #12 caps 01/11/23 06/30/24 Unknown Rx mcg (50,000 unit) capsule levetiracetam 500 mg tablet 500 mg PO BID #90 tabs 01/11/23 06/30/24 06/30/24 Rx (Keppra) thiamine mononitrate (vit B1) 100 100 mg PO DAILY #60 tabs 01/11/23 06/30/24 Unknown Rx mg tablet (Vitamin B-1 (mononitrate)) amlodipine 5 mg tablet 5 mg PO DAILY 06/30/24 06/30/24 06/30/24 History Allergies Allergy/AdvReac Type Severity Reaction Status Date / Time Iodinated Contrast Media Allergy hives Verified 01/13/23 12:35 PFSH Acute PFSH: Medical History Alcohol abuse Cerumen debris on tympanic membrane of right ear Hypertension Major depression Peripheral neuropathic gait Tobacco abuse Social History (Updated 01/13/23 @ 12:39 by Nathalie Garcia MA) Smoking and tobacco/nicotine status: current every day tobacco/nicotine user cigarettes Packs smoked per day: 0.02 [ Other cigarette details: weekly] Alcohol intake: never Substance/Drug Use: never Adopted: No Caregiver/support person: No Lives independently: No Household members: family service: No Current occupational status: retired Sexually active: Yes Do you think of yourself as: Straight/Heterosexual Current gender identity: Male Vitals/I&O/Wt Last Vital Signs Temp 99.2 F 06/30/24 12:15 Pulse 79 06/30/24 14:15 Resp 24 H 06/30/24 14:15 BP 127/97 06/30/24 14:15 Pulse Ox 97 06/30/24 14:15 O2 Del Method Room Air 06/30/24 12:15 Weight last 48 hrs Weight 84.368 kg Physical Exam Narrative: General: Confused, breathing with mouth open and occasionally desaturates however for the most part remains in low 90s. Currently on amiodarone drip and A-fib with RVR. HEENT: Normocephalic, atraumatic, EOMI, slightly tachypneic, respiratory rate 20-25. Cardio: Irregularly irregular, tachycardic Respiratory: Mainly clear to auscultation bilaterally no gross wheezes or rhonchi, diminished at bases, difficult to auscultate due to patient's posture and cooperation. GI: Abdomen soft, nontender, nondistended, bowel sounds +, does not grimace to palpation Extremities: No edema bilateral lower extremities, Chamorro catheter draining dark yellow urine. No evidence of blood at this time. Data 06/30/24 13:06 06/30/24 13:06 Micro: Microbiology 06/30/24 13:00 Blood Culture - Preliminary Blood SPECIMEN COLLECTED 06/30/24 13:06 Blood Culture - Preliminary Blood SPECIMEN COLLECTED A&P Assessment and plan (1) Uremic encephalopathy: (2) Acute kidney injury: (3) Acute dehydration: (4) Atrial fibrillation with RVR: (5) Hypertension: Qualifiers: Hypertension type: essential hypertension Qualified Code(s): I10 - Essential (primary) hypertension (6) Bladder outlet obstruction: (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: (8) Gait instability: (9) Altered mental status: (10) Major depression: Qualifiers: Major depression recurrence: recurrent Active/Remission status: currently active Major depression episode severity: moderate Qualified Code(s): F33.1 - Major depressive disorder, recurrent, moderate (11) Acute renal failure: (12) Leukocytosis: (13) Pneumonia: (14) Hypoxia: Plan #Uremic encephalopathy #Severe acute kidney injury most likely postrenal cause with component of prerenal cause #Atrial fibrillation with RVR #Recent influenza #History of dementia #History of hypertension #Hypotensive on arrival, responsive to fluid, does not meet sepsis criteria #Altered mental status most likely secondary to urinary encephalopathy with component of metabolic encephalopathy #Possible pneumonia #Cannot rule out aspiration #History of alcohol abuse #BPH, enlarged prostate #Dehydration ? Patient presents with severe dehydration. With severe STALIN with BUN 140 creatinine 9.1 with recent flu and enlarged prostate with chronic bladder outlet obstruction most likely the cause of his STAILN at this time. He did immediately have 2 L urine output upon insertion of Chamorro catheter. Will have to watch for polyuric phase. ? Patient is completely confused and encephalopathic most likely secondary to pneumonia however more so likely secondary to uremic encephalopathy due to BUN being 140. At baseline he is able to walk and talk as per senior care. ? He was hypotensive on arrival however responded to fluid. Does not meet sepsis criteria at this time ? Will continue normal saline 125 cc/h at this point ? Have called general surgery for dialysis catheter placement. Patient may require urgent dialysis secondary to uremic encephalopathy as one of the indications. Discussed with nephrology as well. ? Will repeat BMP at this time. ? Patient is a full code as per previous records. No family present at bedside. ? He is currently in A-fib with RVR. Have started on an amiodarone drip. Will continue to do so at this time. Titrate as per protocol. ? Will check echocardiogram ? CT abdomen pelvis reviewed. Chronic outlet obstruction noted. No sign of pyelonephritis ported however perinephric stranding present. I will cover with cefepime at this time which will cover for pneumonia and possible urinary tract infection. ? N.p.o. at this time till seen by speech ? Low suspicion of stroke at this time however cannot be ruled out completely. Unable to do CTA head and neck secondary to severe STALIN. CT head negative at time of admission. May consider MRI if mental status does not improve. Symptoms have been going on for last few days. He would be out of the window for any kind of tPA at this point. ? Continue to recheck labs every 6 hours. ? Continue thiamine folic acid ? Hold home losartan and any other nephrotoxic agents. ? Patient on Keppra at home. Will check Keppra levels however we will hold off on ordering any at this time secondary to severe STALIN. Will continue to monitor patient. Will discuss with pharmacy to possibly renally dose. ? Continue Chamorro catheter for accurate output. Full code DVT prophylaxis: Heparin SQ twice daily PDMP PDMP Reviewed: Not Reviewed Attestations Medical Necessity Statement*: The high probability of a clinically significant, sudden or life threatening deterioration of the patient's [renal, neurological, respiratory, cardiovascular] system(s) required my full and direct attention, intervention and personal management. The critical care time is as shown. This time is in addition to time spent performing any reported procedures but includes the following: [x] Data and vital sign review and interpretation [x] Patient assessment, examination and intervention [x] Documentation [x] Medication orders and management Critical Care Time (min): 75 Coding Level of Care Code Acute Code for Chg Fwd Diagnoses Uremic encephalopathy G93.49; N19 Acute kidney injury N17.9 Acute dehydration E86.0 Atrial fibrillation with RVR I48.91 Essential hypertension I10 Hypertension type: essential hypertension Bladder outlet obstruction N32.0 Dementia associated with alcoholism with behavioral disturbance F10.27 Gait instability R26.81 Altered mental status R41.82 Moderate episode of recurrent major depressive disorder F33.1 Major depression recurrence: recurrent Active/Remission status: currently active Major depression episode severity: moderate Acute renal failure N17.9 Leukocytosis D72.829 Pneumonia J18.9 Hypoxia R09.02
--- NOTE | 2024-06-30 14:55 | CTR_ITS ---
PROCEDURE INFORMATION: Exam: CT Abdomen And Pelvis Without Contrast Exam date and time: 06/30/2024 3:52 PM Age: 74 years old Clinical indication: Condition or disease; Kidney or ureter condition; Other: Severe maria esther; Additional info: Severe maria esther, R/O obstruction TECHNIQUE: Imaging protocol: Computed tomography of the abdomen and pelvis without contrast. Radiation optimization: All CT scans at this facility use at least one of these dose optimization techniques: automated exposure control; mA and/or kV adjustment per patient size (includes targeted exams where dose is matched to clinical indication); or iterative reconstruction. COMPARISON: [place] liver [id number] 04/02/2022 9:11 AM RADIATION DOSE METRICS: Total DLP (mGy-cm): 879.93 FINDINGS: Lungs: Left lower lobe atelectasis and/or consolidation. Pleural spaces: Tiny left pleural effusion. Coronary arteries: Severe multivessel coronary calcification. Liver: Unremarkable. No mass. Gallbladder and biliary ducts: Cholelithiasis. No acute cholecystitis. Pancreas: Unremarkable. No ductal dilation. Spleen: Unremarkable. No mass. Adrenal glands: Unremarkable. No mass. Kidneys and ureters: No renal stone. Left renal lesion measuring 2.1 cm (series 3, image 31). Slightly prominent bilateral ureter with no evidence of hydronephrosis. Stomach and bowel: Unremarkable. No obstruction. No significant mucosal thickening. Appendix: No evidence of appendicitis. Intraperitoneal space: No free air. No significant fluid collection. Vasculature: No abdominal aortic aneurysm. Lymph nodes: No enlarged lymph nodes. Urinary bladder: Decompressed urinary bladder with Chamorro. Mild urinary bladder wall thickening. Reproductive: Prostatomegaly. Bones/joints: No acute fracture. No suspicious lesion. Soft tissues: No bowel containing hernia. CT/CT abdomen pelvis wo con [id number] IMPRESSION: 1. No nephrolithiasis or hydronephrosis. 2. Indeterminate 2.1 cm left renal lesion. Recommend dedicated CT or MRI of the kidneys. 3. Decompressed urinary bladder with mild wall thickening which may be related to chronic outlet obstruction from the enlarged prostate. 4. Cholelithiasis. 5. Left lower lobe atelectasis and/or consolidation. Correlate for acute pulmonary symptoms. COMMENTS: Consistent with the [employer]'s Incidental Findings Committee white paper (J Am Eri Radiol 2018): Any incidental renal lesion less than 1 cm or classified as too small to characterize, or any incidental cystic renal lesion characterized as simple-appearing, is likely benign. No follow-up imaging is recommended for these lesions per consensus recommendations based on imaging criteria.
--- NOTE | 2024-06-30 15:11 | PC.PHAR ---
patient is from [facility]. i called 4 times and get transferred to the nurses line in which i have to leave a voicemail and never have gotten a call back, patient doesnt know meds/ unable to communicate.
[2024-06-30 15:35] LABS: Bilirubin Urine Negative (Negative); Blood Urine 1+ (Negative); Glucose Urine UA Negative (Normal); Ketones Urine Negative (Negative); Leukocyte Esterase Urine Negative (Negative); Nitrate Urine Negative (Negative); Protein Urine 1+ (Negative); Specific Gravity, Urine 1.014 (1.005-1.030); Urine Appearance Clear (CLEAR); Urine Color Yellow (Yellow); Urobilinogen Urine 0.2 mg/dL (Negative)
[2024-06-30 15:37] LABS: Add Urine Microscopic? YES; Bacteria Urine None Seen /hpf; Hyaline Casts Urine 1.21 /lpf; RBC Urine 21-50 /hpf (0-2); Squamous Epithelial Cell Urine 0-5 /hpf (0-5); WBC Urine 0-5 /hpf (0-5)
--- NOTE | 2024-06-30 15:47 | ECG_ITS ---
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[id number] Requested By: Gabriel Faustin Order Number: [id number] Reading MD: GABI MARTE Measurements Intervals [place] Rate: 143 P: 0 MN: 0 QRS: 64 QRSD: 90 T: 44 QT: 283 QTc: 438 Interpretive Statements ATRIAL FIBRILLATION WITH RAPID VENTRICULAR RESPONSE ST DEPRESSION, CONSIDER SUBENDOCARDIAL INJURY [0.1+ mV ST DEPRESSION] Compared to ECG 06/30/2024 12:21:47 ST (T wave) deviation now present Sinus rhythm no longer present Electronically Signed On 07-01-2024 19:17:07 DIGITAL WATCH ASSEMBLER by GABI MARTE [email or web address]
[2024-06-30] MEDS: heparin 5,000 unit/mL INJ 1 mL 5000 UNIT SUBCUT (15:51)
[2024-06-30] MEDS: sodium chloride 0.9% 1,000 ML 75 ML IV (16:15)
[2024-06-30] MEDS: amiodarone 150 MG/100 ML PREMIX 400 MG IV (16:16)
[2024-06-30] MEDS: cefepime 1,000 mg SDV 1000 MG IVP (17:17)
--- NOTE | 2024-06-30 17:24 | PC.NURSE ---
After placing lynn patient had a total of 2000 ml out within 30 minutes.
--- NOTE | 2024-06-30 17:43 | PM.ACPR ---
Procedure/Consent Time out: Time Out Performed: Yes Consent: Consent for Procedure: Consent obtained from other (indicate) (Son) Procedure Narrative: The right groin was prepped and draped in the usual sterile fashion. The right common femoral vein was identified using ultrasound. A finder needle was used to access the right common femoral vein. I then threaded a wire into the right common femoral vein. I confirmed adequate positioning of the wire in the right common femoral vein using ultrasound. I then proceeded to perform a small stab incision next to the guidewire and proceeded to serially dilate the tract. I then placed the temporary dialysis catheter over the guidewire using the Seldinger technique. I was able to draw blood easily and flush both lumens. I sutured the catheter in place and applied sterile dressing. Catheter is ready for immediate use. Acute Procedures Epistaxis Control: Time out performed: Yes
--- NOTE | 2024-06-30 17:43 | PM.CONSULT ---
Providers/Reason For Consult Consulting Physician/Specialty*: Dr. Fine general surgery Reason for Consult*: Dialysis catheter placement Attending Physician: Nikky Garner MD Primary Care Provider: Jai Man DO History of Present Illness History of Present Illness Steve Garcia is a 74 year old male presenting with acute renal failure. Surgery consulted for dialysis catheter placement. Patient is uremic and unable to make any decisions at this point. Medications/Allergies Home Medications ?Medication ?Instructions ?Recorded ?Confirmed ?Last Taken ?Type pantoprazole 40 mg tablet,delayed 40 mg PO DAILY #30 tabs 04/03/22 06/30/24 06/30/24 Rx release Held on 04/07/22. Instructions: Doctor's Order losartan 50 mg tablet 50 mg PO DAILY #90 tabs 05/21/22 06/30/24 06/30/24 Rx cholecalciferol (vitamin D3) 1,250 50,000 unit PO .weekly #12 caps 01/11/23 06/30/24 Unknown Rx mcg (50,000 unit) capsule levetiracetam 500 mg tablet 500 mg PO BID #90 tabs 01/11/23 06/30/24 06/30/24 Rx (Keppra) thiamine mononitrate (vit B1) 100 100 mg PO DAILY #60 tabs 01/11/23 06/30/24 Unknown Rx mg tablet (Vitamin B-1 (mononitrate)) amlodipine 5 mg tablet 5 mg PO DAILY 06/30/24 06/30/24 06/30/24 History Allergies Allergy/AdvReac Type Severity Reaction Status Date / Time Iodinated Contrast Media Allergy hives Verified 01/13/23 12:35 Current Medications Generic Name Dose Route Start Last Admin Trade Name Freq PRN Reason Stop Dose Admin Cefepime HCl 1,000 mg 06/30/24 16:30 06/30/24 17:17 Cefepime 1,000 Mg Sdv IVP 1,000 mg Q24H JIE Administration Protocol Heparin Sodium (Porcine) 5,000 unit 06/30/24 15:00 06/30/24 15:51 Heparin 5,000 Unit/Ml Inj 1 Ml SUBCUT 5,000 unit Q12H JIE Administration Sodium Chloride 1,000 mls @ 125 mls/hr 06/30/24 15:00 06/30/24 16:15 Sodium Chloride 0.9% IV 75 mls/hr .Q8H JIE Administration PFSH Acute PFSH: Medical History Alcohol abuse Cerumen debris on tympanic membrane of right ear Hypertension Major depression Peripheral neuropathic gait Tobacco abuse Social History (Updated 01/13/23 @ 12:39 by Nathalie Garcia MA) Smoking and tobacco/nicotine status: current every day tobacco/nicotine user cigarettes Packs smoked per day: 0.02 [ Other cigarette details: weekly] Alcohol intake: never Substance/Drug Use: never Adopted: No Caregiver/support person: No Lives independently: No Household members: family service: No Current occupational status: retired Sexually active: Yes Do you think of yourself as: Straight/Heterosexual Current gender identity: Male Vitals/I&O/Wt Last Vital Signs Temp 99.2 F 06/30/24 12:15 Pulse 134 H 06/30/24 17:15 Resp 25 H 06/30/24 15:15 BP 128/61 06/30/24 17:15 Pulse Ox 92 06/30/24 17:15 O2 Del Method Room Air 06/30/24 12:15 06/30/24 06/30/24 06/30/24 06:59 14:59 22:59 Intake Total 1999 Balance 1999 Weight last 48 hrs Weight 186 lb Physical Exam Narrative: Chest: Labored breathing on nonrebreather Heart: Tachycardic Abdomen: Soft, nontender, nondistended. No masses or lymphadenopathy. Groins palpable bilateral pulses Urinary Catheter Management: Chamorro: Cath Placed During This Visit: yes Urinary Catheter Date of Insertion: 06/30/24 Data 06/30/24 13:06 06/30/24 17:22 Micro: Microbiology 06/30/24 13:00 Blood Culture - Preliminary Blood SPECIMEN COLLECTED 06/30/24 13:06 Blood Culture - Preliminary Blood SPECIMEN COLLECTED A&P Assessment and plan (1) Acute renal failure: Plan 74-year-old male whom surgery was consulted to place a temporary dialysis catheter. Consented son for dialysis catheter placement discussed risk and benefits and patient's son agreed to proceed with dialysis catheter placement. PDMP PDMP Reviewed: Not Reviewed Coding Level of Care Code 51822 Diagnoses Acute renal failure N17.9 Time Spent (min) 30
[2024-06-30 17:45] LABS: Calcium 8.9 mg/dL (8.5-10.5); Carbon Dioxide 16 mmol/L (22-29); Chloride 111 mmol/L (98-107); Creatinine Clr Calc Pharmacy 9.7086; Glucose 147 mg/dL (65-115); Sodium 148 mmol/L (136-145)
[2024-06-30 17:52] LABS: Procalcitonin 0.12 ng/mL (0-0.5)
[2024-06-30 17:55] LABS: Osmolality Calculated 350 mOsm/kg (285-295)
[2024-06-30 17:56] LABS: Anion Gap 25.5 (5-19); Potassium 4.5 mmol/L (3.5-5.1)
[2024-06-30 17:57] LABS: Blood Urea Nitrogen 129 mg/dL (8-23)
[2024-06-30] MEDS: propofol 10 mg/mL SDV 20 mL 100 MG IVP (18:21)
--- NOTE | 2024-06-30 18:23 | P.CONIM_ITS ---
Providers/Reason For Consult 2 Consulting Physician/Specialty*: [facility]/Nephrology Reason for Consult*: STALIN Attending Physician: Nikky Garner MD Primary Care Provider: Jai Man DO History of Present Illness History of Present Illness Steve Garcia is a 74 year old male patient is a 74-year-old male with past medical history of hypertension, depression, dementia currently is a retirement resident, was sent to the hospital from retirement due to altered mental status. Per report patient has poor oral intake for the last few days. Patient also became progressively somnolent difficult to arouse. He was hypotensive on presentation and received 2 L IV fluids. He was diagnosed with influenza last week. Lab data significant for diarrhea white count of 12,000, BUN of 140 creatinine of 9.1. Chamorro catheter was placed in the ER with 2 L urine output immediately. Patient also in A-fib with RVR and was placed on amiodarone drip. Given concern for uremic encephalopathy temporary HD catheter placement was requested. At baseline, pt is alert and ambulatory per report Review of Systems 2 Narrative: cannot obtain Medications/Allergies Home Medications ?Medication ?Instructions ?Recorded ?Confirmed ?Last Taken ?Type pantoprazole 40 mg tablet,delayed 40 mg PO DAILY #30 t abs 04/03/22 06/30/24 06/30/24 Rx release Held on 04/07/22. Instructions: Doctor's Order losartan 50 mg tablet 50 mg PO DAILY #90 tabs /0 10/0606/30/24 06/30/24 Rx cholecalciferol (vitamin D3) 1,250 50,000 unit PO .sienna walker #12 caps 01/11/23 06/30/24 Unknown Rx mcg (50,000 unit) capsule levetiracetam 500 mg tablet 500 mg PO BID #90 tabs 06/30/24 06/30/24 Rx (Keppra) thiamine mononitrate (vit B1) 100 100 mg PO DAILY #60 tabs 01/11/23 06/30/24 Unknown Rx mg tablet (Vitamin B-1 (mononitrate)) amlodipine 5 mg tablet 5 mg PO DAILY 06/30/2406/3006/30/24 History Allergies Allergy/AdvReac Type Severity Reaction Status Date / Time Iodinated Contrast Media Allergy hives Verified 01/13/23 12:35 Current Medications Generic Name Dose Route Start Last Admin Trade Name Valerie PRN Reason Stop Dose Admin Cefepime HCl 1,000 mg 06/30/24 16:30 06/30/24 17:17 Cefepime 1,000 Mg Sdv IVP 1,000 mg Q24H JIE Administration Protocol Heparin Sodium (Porcine) 5,000 unit 06/30/24 15:00 06/30/24 15:51 Heparin 5,000 Unit/Ml Inj 1 Ml SUBCUT 5,000 unit Q12H JIE Administration Sodium Chloride 1,000 mls @ 125 mls/hr 06/30/24 15:00 06/30/24 16:15 Sodium Chloride 0.9% IV 75 mls/hr .Q8H JIE Administration PFSH Acute 2 PFSH: Medical History Alcohol abuse Cerumen debris on tympanic membrane of right ear Hypertension Major depression Peripheral neuropathic gait Tobacco abuse Social History (Updated 01/13/23 @ 12:39 by Nathalie Garcia MA) Smoking and tobacco/nicotine status: current every day tobacco/nicotine user cigarettes Packs smoked per day: 0.02 [ Other cigarette details: weekly] Alcohol intake: never Substance/Drug Use: never Adopted: No Caregiver/support person: No Lives independently: No Household members: family service: No Current occupational status: retired Sexually active: Yes Do you think of yourself as: Straight/Heterosexual Current gender identity: Male Vitals/I&O/Wt Last Vital Signs Temp 99.2 F 06/30/24 12:15 Pulse 120 H 06/30/24 18:08 Resp 12 06/30/24 18:08 BP 82/43 06/30/24 18:08 Pulse Ox 92 06/30/24 17:15 O2 Del Method Non-Rebreather 06/30/24 18:08 06/30/24 06/30/24 06/30/24 06:59 14:59 22:59 Intake Total 1999 Balance 1999 Weight last 48 hrs Weight 84.368 kg Physical Exam 2 Narrative: somnolent no distress PEERLA S12 , Afib with RVR per report Lungs clear per report Urinary Catheter Management: Chamorro: Cath Placed During This Visit: yes Urinary Catheter Date of Insertion: 06/30/24 Data 07/01/24 05:23 07/01/24 12:15 Micro: Microbiology 06/30/24 13:00 Blood Culture - Preliminary Blood SPECIMEN COLLECTED 06/30/24 13:06 Blood Culture - Preliminary Blood SPECIMEN COLLECTED A&P Assessment and plan (1) Acute kidney injury: Plan 1. Severe STALIN: Likely prerenal in the setting of poor p.o. intake and obstruction . CT abd shows prostate enlargement and ? chronic outlet obstruction. Patient has uremic encephalopathy, metabolic acidosis and respiratory distress. Status post temp catheter placement and plan for HD today. -Chamorro catheter placed and repeat labs show some improvement in renal function, continue to monitor -Assess daily for HD needs 2. Metabolic acidosis, in the setting of STALIN, should improve with HD 3.Hypernatremia: Mild, monitor for now, if no improvement will start hypotonic fluids 4. Altered mental status: Likely uremic encephalopathy but rule out sepsis 5. Dementia Pt evaluated using audiovisula cart. Time spent 40 min PDMP PDMP Reviewed: Not Reviewed Consult Attestations 2 Medical Necessity Statement: per joan Coding Level of Care Code Acute Code for Chg Fwd Diagnoses Acute kidney injury N17.9
[2024-06-30] MEDS: albumin 12.5 GM/50 ML VIAL IV (21:34)
[2024-06-30] MEDS: levETIRAcetam 500 MG/100 ML PREMIX 400 MG IV (21:34)
[2024-06-30 22:22] LABS: Ammonia 31 umol/L (16-60)
[2024-06-30 22:29] LABS: ABG PCO2 30.5 mmHg (35-45); ABG PH Result 7.37 (7.35-7.45); Base Excess ABG -6.5 mmol/L (-2.0-2.0); Blood Gas Allen Test Pos; Blood Gas Sample Type Arterial; Carboxyhemoglobin 0.5 %THgb (0.4-20.1); HCO3 ABG 17.6 mmol/L (22-26); HGB O2 Sat 98.6 % (95-100); Ionized Calcium Level - ABG 1.2 mmol/L (1.1-1.4); Methemoglobin 0.4 % (0.4-1.5); Oxygen Saturation ABG > 99.1; Potassium Level - ABG 3.6 mmol/L (3.5-5.0)
[2024-06-30 22:30] LABS: Alveolar-Arterial Oxygen Gradi 64.8 mmHg (5-10); Blood Gas Operator Identificat ED; Blood Gas Sample Site Radial, left; Oxygen Device NRB; PO2 FiO2 Ratio Arterial Blood 172
--- NOTE | 2024-06-30 22:44 | PC.NURSE ---
ABG While attempting to insert an IV, patient's oxygen saturation quickly decreased to 67% while on 3LNC. Patient quiñones in appearance with a moist rattle emitting from patient's throat. Airway suctioned revealing an extremely thick tenacious substance. 15 L nonrebreather placed on patient and RT called to bedside. Oxygen saturation slowly increased back into the 90s. Dr. Park contacted and order received for stat ABG and morning chest xray.
[2024-06-30] MEDS: norepinephrine 4 MG/250 ML BAG 22.5 MG IV (23:21)
[2024-06-30] MEDS: sodium chloride 0.9% 1,000 ML 200 ML IV (23:33)
--- NOTE | 2024-06-30 23:53 | PC.HD ---
Was called to do emergency dialysis on patient being admitted to ICU from ED. Was set up and waiting when patient arrived to ICU. Pt unresponsive so telephone consent obtained from pt's son with [employer]IER witness. 20:30 On initial assessment BP noted to be 69/41 with pulse 123. PHTHALIC ACID PURIFIER contacted hospitalist, notified of BP and dialysis unable to start, requested order for Levophed, order received for 1L fluid bolus, declined to order presser agent. Dr Stallworth updated. Patient's SBP 60s to 80s during fluid bolus infusing at 999ml/hr. When bolus infused PHTHALIC ACID PURIFIER contacted hospitalist to notify that SBP remains 60s to 80s and still unable to start dialysis, order received to give albumin and continue IVF @200ml/hr, again declined to order presser. At 22:10 Dr Stallworth notified of pt's BP 74/50 after 1L fluid bolus and albumin infusion, and with IVF running@ 200ml/hr, and that hospitalist declines to order pressers, instructions received to hold dialysis until tomorrow.
[2024-07-01] VITALS (53 sets, daily range): BP systolic 68–178; BP diastolic 50–129; PULSE 61–115; RESP 12–31; TEMP 36.4–36.7; O2SAT 86–100
[2024-07-01 02:03] LABS: Hepatitis B Surface AB < 3.5 (11.5-1000); Hepatitis B Surface Antigen Non-Reactive (Nonreactive)
[2024-07-01 02:14] LABS: 25 Hydroxy Vitamin D 16 ng/mL (30-100); Thyroid Stimulating Hormone 0.81 uIU/mL (0.27-4.20); Vitamin B12 698 pg/mL (232-1245)
[2024-07-01] MEDS: vasopressin 40 UNIT/100 ML PREMIX 4.5 UNIT IV (03:01)
[2024-07-01] MEDS: heparin 5,000 unit/mL INJ 1 mL 5000 UNIT SUBCUT ×2 (03:16→15:05)
[2024-07-01] MEDS: ipratropium-albuterol 3 mL Neb INHALATION ×4 (03:41→20:40)
--- NOTE | 2024-07-01 04:00 | XRR_ITS ---
PROCEDURE INFORMATION: Exam: XR Chest Exam date and time: 07/01/2024 3:28 AM Age: 74 years old Clinical indication: Cough with hypoxia. Concern for aspiration. ; Additional info: Possible aspiration TECHNIQUE: Imaging protocol: Radiologic exam of the chest. Views: 1 view. COMPARISON: CR XR chest 1V portable [id number] 06/30/2024 12:29 PM FINDINGS: Lungs: Questionable retrocardiac consolidation. Pleural spaces: Blunting of the left costophrenic angle. Heart/Mediastinum: Unremarkable. No cardiomegaly. Bones/joints: Unremarkable. Soft tissues: Skin fold causes artifactual lucency over the anterior superior chest. Other findings: Patient is rotated left. XR/XR chest 1V portable [id number] IMPRESSION: Questionable retrocardiac consolidation with blunting of the left costophrenic angle, this could be artifactual given patient rotation, however pneumonia with parapneumonic effusion can give the same appearance. Correlate clinically.
[2024-07-01] MEDS: sodium chloride 0.9% 1,000 ML 200 ML IV (04:21)
[2024-07-01 05:37] LABS: Basophils % 0.2 %; Eosinophils # 0.2 10^3/uL (0.0-0.8); Eosinophils % 1.4 %; Hematocrit 37.6 % (37-53); Lymphocytes # 1.5 10^3/uL (0.8-4.8); Lymphocytes % 13.7 %; Mean Corpuscular HGB Conc 31.9 g/dL (30-55); Mean Corpuscular Hemoglobin 30.5 pg (27-33); Mean Corpuscular Volume 95.4 fl (82-101); Mean Platelet Volume 10.6 fL (7.4-10.4); Monocytes # 0.9 10^3/uL (0.2-0.9); Monocytes % 8.6 %; Neutrophils # 8.12 10^3/uL (1.8-7.7); Neutrophils % 75.4 %; Nucleated Red Blood Cells % 0 %; Platelet Count 129 10^3/cmm (157-399); Red Blood Count 3.94 10^6/uL (3.85-5.65); Red Cell Distribution Width 13.5 % (12.1-15.1); White Blood Count 10.76 10^3/uL (3.29-11.43)
[2024-07-01 05:57] LABS: Phosphorus 4.1 mg/dL (2.5-4.5)
[2024-07-01 05:58] LABS: Alanine Aminotransferase 9 U/L (0-41); Albumin Level 2.9 g/dL (3.5-5.2); Alkaline Phosphatase 67 U/L (40-130); Anion Gap 16.8 (5-19); Aspartate Amino Transferase 11 U/L (0-40); Calcium 8.3 mg/dL (8.5-10.5); Carbon Dioxide 19 mmol/L (22-29); Chloride 121 mmol/L (98-107); Creatinine Clr Calc Pharmacy 15.9513; Globulin 3.1 g/dL (1.3-4.6); Glucose 123 mg/dL (65-115); Magnesium 2.4 mg/dL (1.7-2.3); Osmolality Calculated 348 mOsm/kg (285-295); Potassium 3.8 mmol/L (3.5-5.1); Sodium 153 mmol/L (136-145); Total Bilirubin 0.3 mg/dL (0.15-1.2)
[2024-07-01 06:19] LABS: Blood Urea Nitrogen 98 mg/dL (8-23)
[2024-07-01] MEDS: linezolid premix 600 MG/300 ML PREMIX 300 MG IV ×2 (09:24→20:18)
[2024-07-01] MEDS: pantoprazole 40 mg SDV IVP (09:24)
[2024-07-01] MEDS: lactated ringers 1,000 ML 125 ML IV ×2 (09:25→17:54)
--- NOTE | 2024-07-01 11:19 | PC.NURSE ---
Family at bedside, updates given. Goals of care discussed, patient to remain full code.
[2024-07-01 12:48] LABS: Anion Gap 18.7 (5-19); Blood Urea Nitrogen 74 mg/dL (8-23); Calcium 8.6 mg/dL (8.5-10.5); Carbon Dioxide 17 mmol/L (22-29); Chloride 120 mmol/L (98-107); Creatinine Clr Calc Pharmacy 22.3319; Glucose 131 mg/dL (65-115); Osmolality Calculated 338 mOsm/kg (285-295); Potassium 3.7 mmol/L (3.5-5.1); Sodium 152 mmol/L (136-145)
--- NOTE | 2024-07-01 13:53 | PM.PN ---
Subjective Subjective: Plan was to dialyze patient last night however he acutely developed low blood pressures requiring Levophed and vasopressin transiently. Levophed and vasopressin have both been turned off as of this morning. Labs are slowly improving. Patient is requiring high flow nasal cannula at this time [address] did show possibility of left lower lobe consolidation. He is able to tell me that his name is Steve this morning and he is in [place] however unable to tell me if this is a hospital who the president is or what the date might be. He does not know his own date of either. Definitely more responsive compared to yesterday when seen in the ER. Family present at bedside Son is here. He states his mother 2 years ago. Family would like patient to be a full code at this time. Updated them on patient's case at this time. Vitals/I&O/Wt Last Vital Signs Temp 97.6 F 07/01/24 08:00 Pulse 76 07/01/24 13:29 Resp 18 07/01/24 13:28 BP 139/81 07/01/24 13:00 Pulse Ox 94 07/01/24 13:28 O2 Del Method Heated High Flow 07/01/24 13:28 O2 Flow Rate 55 07/01/24 13:28 FiO2 45 07/01/24 13:28 06/30/24 07/01/24 07/01/24 22:59 06:59 14:59 Intake Total 3658.75 / 3658.75 1712.127 / 5370.877 542.052 / 542.052 Output Total 1200 / 1200 1500 / 1500 Balance 3658.75 / 3658.75 512.127 / 4170.877 -957.948 / -957.948 Weight last 48 hrs Weight 78.925 kg Weight 79 kg Weight 84.368 kg Physical Exam Narrative: General: Patient on high flow nasal cannula 55 L, somewhat awake and alert. Knows his name and that this is [place]. More responsive compared to yesterday. HEENT: Normocephalic, atraumatic, EOMI, breathing comfortably on 55 L. Did require suctioning at bedside while I was examining the patient. Cardio: Irregularly irregular, slightly tachycardic. Respiratory: Rhonchi at left base, rest mainly clear to auscultation at this time. GI: Abdomen soft, nontender, nondistended, bowel sounds +, does not grimace to palpation Extremities: No edema bilateral lower extremities, Chamorro catheter draining dark yellow urine. No evidence of blood at this time. Urinary Catheter Management: Chamorro: Cath Placed During This Visit: yes Reason for Continuing Indwelling Catheter: Accurate Measurement of Urinary Output in Critically Ill Patients Urinary Catheter Date of Insertion: 06/30/24 Data 07/01/24 05:23 07/01/24 12:15 Micro: Microbiology 06/30/24 13:00 Blood Culture - Preliminary Blood NEGATIVE TO DATE 06/30/24 13:06 Blood Culture - Preliminary Blood NEGATIVE TO DATE A&P Assessment and plan (1) Uremic encephalopathy: (2) Acute kidney injury: (3) Acute dehydration: (4) Atrial fibrillation with RVR: (5) Hypertension: Qualifiers: Hypertension type: essential hypertension Qualified Code(s): I10 - Essential (primary) hypertension (6) Bladder outlet obstruction: (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: (8) Gait instability: (9) Altered mental status: (10) Major depression: Qualifiers: Major depression recurrence: recurrent Active/Remission status: currently active Major depression episode severity: moderate Qualified Code(s): F33.1 - Major depressive disorder, recurrent, moderate (11) Acute renal failure: (12) Leukocytosis: (13) Pneumonia: (14) Hypoxia: Plan #Uremic encephalopathy #Severe acute kidney injury most likely postrenal cause with component of prerenal cause #Atrial fibrillation with RVR #Recent influenza #History of dementia #History of hypertension #Hypotensive on arrival, responsive to fluid, does not meet sepsis criteria #Altered mental status most likely secondary to urinary encephalopathy with component of metabolic encephalopathy #Possible pneumonia #Cannot rule out aspiration #History of alcohol abuse #BPH, enlarged prostate #Dehydration ? Patient presents with severe dehydration. With severe STALIN with BUN 140 creatinine 9.1 with recent flu and enlarged prostate with chronic bladder outlet obstruction most likely the cause of his STALIN at this time. He did immediately have 2 L urine output upon insertion of Chamorro catheter. Will have to watch for polyuric phase. ? Patient is completely confused and encephalopathic most likely secondary to pneumonia however more so likely secondary to uremic encephalopathy due to BUN being 140. At baseline he is able to walk and talk as per long term. ? He was hypotensive on arrival however responded to fluid. Does not meet sepsis criteria at this time ? Will continue normal saline 125 cc/h at this point ? Have called general surgery for dialysis catheter placement. Patient may require urgent dialysis secondary to uremic encephalopathy as one of the indications. Discussed with nephrology as well. ? Will repeat BMP at this time. ? Patient is a full code as per previous records. No family present at bedside. ? He is currently in A-fib with RVR. Have started on an amiodarone drip. Will continue to do so at this time. Titrate as per protocol. ? Will check echocardiogram ? CT abdomen pelvis reviewed. Chronic outlet obstruction noted. No sign of pyelonephritis ported however perinephric stranding present. I will cover with cefepime at this time which will cover for pneumonia and possible urinary tract infection. ? N.p.o. at this time till seen by speech ? Low suspicion of stroke at this time however cannot be ruled out completely. Unable to do CTA head and neck secondary to severe STALIN. CT head negative at time of admission. May consider MRI if mental status does not improve. Symptoms have been going on for last few days. He would be out of the window for any kind of tPA at this point. ? Continue to recheck labs every 6 hours. ? Continue thiamine folic acid ? Hold home losartan and any other nephrotoxic agents. ? Patient on Keppra at home. Will check Keppra levels however we will hold off on ordering any at this time secondary to severe STALIN. Will continue to monitor patient. Will discuss with pharmacy to possibly renally dose. ? Continue Chamorro catheter for accurate output. Full code DVT prophylaxis: Heparin SQ twice daily 07/01/2024 Patient currently requiring 55 L high flow nasal cannula. Will continue to wean off oxygen as able Does have a left lower lobe pneumonia. Continue linezolid and cefepime at this time. Will check speech swallow evaluation Check MRSA nares ? Creatinine and BUN are starting to improve. Patient is more responsive today. Dialysis could not be performed last night secondary to acute hypotension requiring vasopressors. ? Vasopressors have been turned off this morning. Blood pressure is stable. ? Patient is rate controlled now. ? STALIN: Slowly improving. ? Continue LR at 125 cc/h ? Hold nephrotoxic agents ? Patient did get 1 dose of Keppra last night. ? When placed on IV Keppra twice daily ? Check speech swallow evaluation and start diet when patient able to participate better. ? Sputum culture blood culture pending at this time. -Echo pending Discussed with family regarding goals of care. They would like CPR and intubation if required at this time. Patient to remain a full code. They are also okay with dialysis if needed. ? Will repeating labs at noon today. Await recommendations from nephrology. ? Patient has a known history of COVID few weeks ago and influenza 1 to 2 weeks ago as per family. I will check respiratory viral panel to rule out RSV. PDMP PDMP Reviewed: Not Reviewed Attestations Medical Necessity Statement*: The high probability of a clinically significant, sudden or life threatening deterioration of the patient's [neurological, respiratory, cardiovascular, renal] system(s) required my full and direct attention, intervention and personal management. The critical care time is as shown. This time is in addition to time spent performing any reported procedures but includes the following: [x] Data and vital sign review and interpretation [x] Patient assessment, examination and intervention [x] Documentation [x] Medication orders and management Critical Care Time (min): 65 Coding Level of Care Code Acute Code for Chg Fwd Diagnoses Uremic encephalopathy G93.49; N19 Acute kidney injury N17.9 Acute dehydration E86.0 Atrial fibrillation with RVR I48.91 Essential hypertension I10 Hypertension type: essential hypertension Bladder outlet obstruction N32.0 Dementia associated with alcoholism with behavioral disturbance F10.27 Gait instability R26.81 Altered mental status R41.82 Moderate episode of recurrent major depressive disorder F33.1 Major depression recurrence: recurrent Active/Remission status: currently active Major depression episode severity: moderate Acute renal failure N17.9 Leukocytosis D72.829 Pneumonia J18.9 Hypoxia R09.02
--- NOTE | 2024-07-01 14:32 | P.PN_ITS ---
Subjective 2 Subjective: somnolent Medications: Reviewed: Yes Vitals/I&O/Wt Last Vital Signs Temp 97.6 F 07/01/24 08:00 Pulse 76 07/01/24 13:29 Resp 18 07/01/24 13:28 BP 139/81 07/01/24 13:00 Pulse Ox 94 07/01/24 13:28 O2 Del Method Heated High Flow 07/01/24 13:28 O2 Flow Rate 55 07/01/24 13:28 FiO2 45 07/01/24 13:28 06/30/24 07/01/24 07/01/24 22:59 06:59 14:59 Intake Total 3658.75 / 3658.75 1712.127 / 5370.877 542.052 / 542.052 Output Total 1200 / 1200 1500 / 1500 Balance 3658.75 / 3658.75 512.127 / 4170.877 -957.948 / -957.948 Weight last 48 hrs Weight 78.925 kg Weight 79 kg Weight 84.368 kg Physical Exam 2 Narrative: somnolent no distress PEERLA S12 , Afib with RVR per report Lungs clear per report Urinary Catheter Management: Chamorro: Cath Placed During This Visit: yes Reason for Continuing Indwelling Catheter: Accurate Measurement of Urinary Output in Critically Ill Patients Urinary Catheter Date of Insertion: 06/30/24 Data 07/01/24 05:23 07/01/24 12:15 Micro: Microbiology 06/30/24 13:00 Blood Culture - Preliminary Blood NEGATIVE TO DATE 06/30/24 13:06 Blood Culture - Preliminary Blood NEGATIVE TO DATE A&P Assessment and plan (1) Acute kidney injury: Plan 1. Severe STALIN: Likely prerenal in the setting of poor p.o. intake and obstruction . CT abd shows prostate enlargement and ? chronic outlet obstruction. Patient has uremic encephalopathy, metabolic acidosis and respiratory distress. Status post temp catheter placement yesterday but HD wasnot done last night due to low BPs . Repeat labs show improvement in renal function, hold off on HD -Chamorro catheter placed 2. Metabolic acidosis, in the setting of STALIN, improving 3.Hypernatremia: switch IVFs to D5 1/2 NS 4. Altered mental status: Likely uremic encephalopathy but rule out sepsis 5. Dementia Pt evaluated using audiovisula cart. Time spent 40 min PDMP PDMP Reviewed: Not Reviewed Attestations 2 Medical Necessity Statement*: per joan Coding Level of Care Code Acute Code for Chg Fwd Diagnoses Acute kidney injury N17.9
[2024-07-01] MEDS: levETIRAcetam 500 MG/100 ML PREMIX 400 MG IV (15:05)
[2024-07-01] MEDS: morphine 4 mg/mL SDV 1 mL 2 MG IVP (16:49)
[2024-07-01] MEDS: methylPREDNISolone sod succ 40 mg/mL INJ IVP (16:54)
--- NOTE | 2024-07-01 17:17 | USCV_ITS ---
Steve Garcia Age: 74 Gender: M : 1950 Exam Date: 07/01/2024 07:29 Ordering Phys: Nikky Garner MD Technologist: Calixto Petersen [place] [facility] [place]: low bp BP: 129 / 79 HR: 75 Rhythm: Sinus Technical Quality: Adequate MEASUREMENTS (Male / Female) Normal Values 2D ECHO LV Diastolic Diameter PLAX 3.3 cm 4.2 - 5.9 / 3.9 - 5.3 cm IVS Diastolic Thickness 1.1 cm 0.6 - 1.0 / 0.6 - 0.9 cm IVS Systolic Thickness 1.4 cm LVPW Diastolic Thickness 1.1 cm 0.6 - 1.0 / 0.6 - 0.9 cm LVPW Systolic Thickness 1.5 cm LV Ejection Fraction 2D Teich 65.3 % LV Ejection Fraction MOD 4C 75.5 % LV Ejection Fraction MOD 2C 68.9 % LV Ejection Fraction 2C AL 68.9 % RA Systolic Volume 4C AL 54.3 ml RA Systolic Volume 4C MOD 51.7 ml LA Sys Volume AL 59.3 cm cubed LA Sys Volume Index AL 29.9 cm cubed/m squared IVC Diameter 1.7 cm M-MODE LA Ao Ratio MM 1.1 AV Cusp Separation MM 2.0 cm DOPPLER AV Peak Velocity 174.7 cm/s LVOT Peak Velocity 118.0 cm/s MV Peak Velocity 85.0 cm/s MV Area PHT 3.7 cm squared Mitral E to A Ratio 0.6 TV Peak Velocity 312.0 cm/s TR Peak Velocity 372.0 cm/s TR Peak Gradient 55.4 mmHg TR Mean Velocity 297.0 cm/s TR Mean Gradient 38.4 mmHg TR Velocity Time Integral 129.5 cm PV Peak Velocity 72.0 cm/s RV Ejection Time 0.3 s FINDINGS Left Ventricle Normal left ventricular size and systolic function, EF 65%.mild left ventricular hypertrophy. No regional wall motion abnormalities. Grade I/IV diastolic dysfunction (abnormal relaxation filling pattern), normal to mildly elevated filling pressures. Right Ventricle The right ventricle is normal in size and function. Right Atrium Mildly increased right atrial size. Left Atrium Mildly increased left atrial size. Slight ridging of the interatrial septum to the left during systole Mitral Valve Thickened mitral valve. Aortic Valve Thickened aortic valve. Tricuspid Valve Trace tricuspid valve regurgitation. Pulmonic Valve Mild to moderatepulmonary valve regurgitation. Pericardium No pericardial effusion. Aorta Normal aortic annulus size. IVC The inferior vena cava appears normal. CONCLUSIONS Normal left ventricular size and systolic function, EF 65%.mild left ventricular hypertrophy. No regional wall motion abnormalities. Grade I/IV diastolic dysfunction (abnormal relaxation filling pattern), normal to mildly elevated filling pressures. Mild biatrial enlargement Slight ridging of the interatrial septum to the left during systole. Thickened aortic and mitral valves. Trace tricuspid valve regurgitation. Estimated pulmonary artery peak systolic pressure 41 mmHg There is no pericardial effusion. There are no intracardiac masses. Compared to the study from 10/27/2022, there may not be a significant change Dr Tru Villanueva MD FAC (Electronically Signed) Final Date: 01 July 2024 09:48 S
[2024-07-01] MEDS: cefepime 1,000 mg SDV 1000 MG IVP (17:19)
[2024-07-01 19:23] LABS: Adenovirus Not Detected (NOT DETECT); Chlamydia Pneumoniae Not Detected (NOT DETECT); Coronavirus 229E,HKU1,NL63,OC4 Not Detected (NOT DETECT); Human Metapneumovirus Not Detected (NOT DETECT); Human Rhinovirus/Enterovirus Not Detected (NOT DETECT); Influenza A Not Detected (NOT DETECT); Influenza A H1 Not Detected (NOT DETECT); Influenza A H1-2009 Not Detected (NOT DETECT); Influenza A H3 Not Detected (NOT DETECT); Influenza B Not Detected (NOT DETECT); Mycoplasma Pneumoniae Not Detected (NOT DETECT); Parainfluenza Virus Type 1 Not Detected (NOT DETECT); Parainfluenza Virus Type 2 Not Detected (NOT DETECT); Parainfluenza Virus Type 3 Not Detected (NOT DETECT); Parainfluenza Virus Type 4 Not Detected (NOT DETECT); Respiratory Syncytial Virus A Not Detected (NOT DETECT); Respiratory Syncytial Virus B Not Detected (NOT DETECT); SARS-COV-2 Not Detected (NOT DETECT)
--- NOTE | 2024-07-01 20:03 | PC.NURSE ---
Amiodarone gtt- Pt unable to take PO meds, will not be able to transition to PO amiodarone. Dr. Park notified, received verification to leave amiodarone gtt going at 0.5 for tonight.
[2024-07-02] VITALS (56 sets, daily range): BP systolic 124–189; BP diastolic 63–130; PULSE 60–90; RESP 4–26; TEMP 36.3–36.8; O2SAT 90–100; BMI 25.1
[2024-07-02] MEDS: levETIRAcetam 500 MG/100 ML PREMIX 400 MG IV ×2 (01:05→13:51)
[2024-07-02] MEDS: heparin 5,000 unit/mL INJ 1 mL 5000 UNIT SUBCUT (03:16)
[2024-07-02] MEDS: methylPREDNISolone sod succ 40 mg/mL INJ IVP ×3 (03:16→18:31)
[2024-07-02 03:27] LABS: Glucose Point of Care 160 mg/dL (70-110)
[2024-07-02] MEDS: ipratropium-albuterol 3 mL Neb INHALATION ×4 (03:46→19:59)
[2024-07-02] MEDS: lactated ringers 1,000 ML 125 ML IV (03:57)
--- NOTE | 2024-07-02 05:27 | PC.NURSE ---
Blood Pressure- Pt blood pressures have been 150's -160's systolic most of night. Current BP 178/117. Notified Dr. Park. New order for hydralazine 10 mg IVP once.
[2024-07-02 05:44] LABS: Basophils % 0.1 %; Hematocrit 40.7 % (37-53); Lymphocytes # 0.7 10^3/uL (0.8-4.8); Lymphocytes % 10.6 %; Mean Corpuscular HGB Conc 31.9 g/dL (30-55); Mean Corpuscular Hemoglobin 30.2 pg (27-33); Mean Corpuscular Volume 94.7 fl (82-101); Mean Platelet Volume 11.2 fL (7.4-10.4); Monocytes # 0.1 10^3/uL (0.2-0.9); Monocytes % 2.1 %; Neutrophils # 5.83 10^3/uL (1.8-7.7); Neutrophils % 86.2 %; Nucleated Red Blood Cells % 0 %; Platelet Count 140 10^3/cmm (157-399); Red Cell Distribution Width 13.3 % (12.1-15.1); White Blood Count 6.77 10^3/uL (3.29-11.43)
[2024-07-02] MEDS: hyDRALAzine 20 mg/mL INJ 1 mL 10 MG IVP ×4 (05:44→20:20)
[2024-07-02 05:49] LABS: Alanine Aminotransferase 10 U/L (0-41); Albumin Level 3.2 g/dL (3.5-5.2); Alkaline Phosphatase 74 U/L (40-130); Anion Gap 19.5 (5-19); Aspartate Amino Transferase 15 U/L (0-40); Blood Urea Nitrogen 51 mg/dL (8-23); Calcium 9.1 mg/dL (8.5-10.5); Carbon Dioxide 19 mmol/L (22-29); Chloride 119 mmol/L (98-107); Creatinine Clr Calc Pharmacy 37.3333; Globulin 3.7 g/dL (1.3-4.6); Glucose 159 mg/dL (65-115); Magnesium 1.9 mg/dL (1.7-2.3); Osmolality Calculated 335 mOsm/kg (285-295); Potassium 3.5 mmol/L (3.5-5.1); Sodium 154 mmol/L (136-145); Total Bilirubin 0.3 mg/dL (0.15-1.2); Total Protein 6.9 g/dL (6.6-8.7)
--- NOTE | 2024-07-02 08:39 | CTR_ITS ---
PROCEDURE INFORMATION: Exam: CT Chest Without Contrast; Diagnostic Exam date and time: 07/02/2024 9:23 AM Age: 74 years old Clinical indication: Shortness of breath; Additional info: Hypoxia, TECHNIQUE: Imaging protocol: Diagnostic computed tomography of the chest without contrast. Radiation optimization: All CT scans at this facility use at least one of these dose optimization techniques: automated exposure control; mA and/or kV adjustment per patient size (includes targeted exams where dose is matched to clinical indication); or iterative reconstruction. COMPARISON: CR (CHEST, ) 07/01/2024 3:28 AM RADIATION DOSE METRICS: Total DLP (mGy-cm): 449.97 FINDINGS: Lungs: There is dependent atelectasis at the right lung base. There is airspace disease involving the left lower lobe likely representing a combination of atelectasis and pneumonia. No definite lung nodules or masses are appreciated. Pleural spaces: There are small bilateral pleural effusions slightly greater on the left. Heart: The heart is slightly enlarged. There is a small amount of pericardial fluid. Lymph nodes: Unremarkable. No enlarged lymph nodes. Vasculature: The thoracic aorta is normal in caliber. There is calcified plaque involving the aorta and coronary vessels. Gallbladder and biliary ducts: There are gallstones within the gallbladder. No definite pericholecystic inflammatory change is noted. Kidneys: There is a small lesion involving the anterior mid to upper pole cortex of the right kidney measuring 15 mm in size in the posterior mid pole cortex of the left kidney measuring 2 cm in size. These lesions are not definitely simple cysts by this CT exam. These could represent complicated cysts or solid masses. Recommend nonemergent ultrasound directed at these areas for further evaluation. Bones/joints: Unremarkable. No acute fracture. Soft tissues: Unremarkable. CT/CT chest wo con [id number] IMPRESSION: 1. Small bilateral pleural effusions. 2. Dependent atelectasis right lung base with suspected combination of atelectasis and pneumonia at the left lung base. 3. Indeterminate lesions involving the kidneys. Please see above recommendations. 4. Cholelithiasis. COMMENTS: Consistent with the [place] [employer]'s Incidental Findings Committee white paper (J Am Eri Radiol 2018): Any incidental renal lesion less than 1 cm or classified as too small to characterize, or any incidental cystic renal lesion characterized as simple-appearing, is likely benign. No follow-up imaging is recommended for these lesions per consensus recommendations based on imaging criteria.
--- NOTE | 2024-07-02 08:41 | USR_ITS ---
PROCEDURE INFORMATION: Exam: US Duplex Lower Extremity Veins, Bilateral Exam date and time: 07/02/2024 10:58 AM Age: 74 years old Clinical indication: Screening exam; RO dvt TECHNIQUE: Imaging protocol: Real-time duplex ultrasound of the bilateral extremities with 2-D granados scale, color Doppler flow and spectral waveform analysis including responses to compression and other maneuvers (when performed) with image documentation. Complete exam focused on the lower extremity veins. COMPARISON: CT abdomen pelvis wo con [id number] 06/30/2024 3:52 PM FINDINGS: Right deep veins: There is nonocclusive thrombus within the right common femoral vein. Otherwise, there is normal flow, compressibility, and augmentation involving the deep venous system of the right lower extremity. Left deep veins: Unremarkable. The common femoral, femoral, proximal profunda femoral and popliteal veins are patent without thrombus. Normal Doppler waveforms. Normal compressibility and/or augmentation response. Superficial veins: Greater saphenous veins at the saphenofemoral junctions are patent bilaterally without thrombus. Soft tissues: Unremarkable. US/CV venous duplex [facility] [id number] IMPRESSION: 1. Nonocclusive thrombus right common femoral vein.
[2024-07-02] MEDS: morphine 4 mg/mL SDV 1 mL 2 MG IVP ×2 (09:13→16:55)
--- NOTE | 2024-07-02 09:39 | PM.PN ---
Subjective Subjective: lethargic, not answering appropriately on hi flow oxygen Medications: Reviewed: Yes Medication Review Details: Current Medications Acetaminophen (Acetaminophen 325 Mg Tablet) 650 mg PO Q6H PRN PRN Reason: Mild/Mod Pain Or Temp >/= 101 Albuterol/Ipratropium (Ipratropium-Albuterol 3 Ml Neb) 3 ml INHALATION Q6H PRN PRN Reason: SHORTNESS OF BREATH Last Admin: 07/02/24 07:36 Dose: 3 ml Cefepime HCl (Cefepime 1,000 Mg Sdv) 1,000 mg IVP Q24H JIE; Protocol Last Admin: 07/01/24 17:19 Dose: 1,000 mg Docusate Sodium (Docusate Sodium 100 Mg Capsule) 100 mg PO BID JIE Last Admin: 07/02/24 09:10 Dose: Not Given Heparin Sodium (Porcine) (Heparin 5,000 Unit/Ml Inj 1 Ml) 5,000 unit SUBCUT Q12H JIE Last Admin: 07/02/24 03:16 Dose: 5,000 unit Amiodarone HCl/Dextrose (Nexterone) 360 mg in 200 mls @ 0 mls/hr IV .Q0M JIE; Protocol Last Admin: 07/02/24 01:03 Dose: 0.5 mg/min, 16.67 mls/hr Sodium Chloride (Sodium Chloride 0.9%) 1,000 mls @ 0 mls/hr IV .Q0M PRN PRN Reason: hypotension or symptomatic Albumin Human (Albumin) 12.5 gm in 50 mls @ 60 mls/hr IV PRN PRN PRN Reason: Hypotension and/or symptomatic Norepinephrine Bitartrate (Levophed) 4 mg in 250 mls @ 0 mls/hr IV .Q0M JIE; Protocol Last Titration: 07/01/24 10:46 Dose: 0 mcg/min, 0 mls/hr Lactated Ringer's (Lactated Ringers) 1,000 mls @ 125 mls/hr IV .Q8H JIE Last Admin: 07/02/24 03:57 Dose: 125 mls/hr Linezolid (Zyvox Premix) 600 mg in 300 mls @ 300 mls/hr IV Q12H JIE; Protocol Last Infusion: 07/01/24 21:23 Dose: Infused Levetiracetam (Keppra) 500 mg in 100 mls @ 400 mls/hr IV Q12H [facility] Last Infusion: 07/02/24 02:44 Dose: Infused Methylprednisolone Sodium Succinate (Methylprednisolone Sod Succ 40 Mg/Ml Inj) 40 mg IVP Q8H [facility] Morphine Sulfate (Morphine 4 Mg/Ml Sdv 1 Ml) 2 mg IVP Q4H PRN PRN Reason: MODERATE PAIN Last Admin: 07/02/24 09:13 Dose: 2 mg Ondansetron HCl (Ondansetron 2 Mg/Ml Sdv 2 Ml) 4 mg IVP Q8H PRN PRN Reason: vomiting, or N/V if npo Ondansetron HCl (Ondansetron 2 Mg/Ml Sdv 2 Ml) 4 mg IVP Q6H PRN PRN Reason: NAUSEA AND VOMITING Pantoprazole Sodium (Pantoprazole 40 Mg Sdv) 40 mg IVP DAILY [facility] Last Admin: 07/01/24 09:24 Dose: 40 mg Thiamine Mononitrate (Thiamine 100 Mg Tablet) 100 mg PO DAILY [facility] Last Admin: 07/02/24 09:10 Dose: Not Given Vitals/I&O/Wt Last Vital Signs Temp 98.0 F 07/02/24 08:30 Pulse 78 07/02/24 08:30 Resp 18 07/02/24 09:13 BP 184/101 07/02/24 08:30 Pulse Ox 97 07/02/24 08:30 O2 Del Method Heated High Flow 07/02/24 08:30 O2 Flow Rate 40 07/02/24 08:30 FiO2 60 07/02/24 08:30 07/01/24 07/02/24 07/02/24 22:59 06:59 14:59 Intake Total 1400 / 9643.353 0272 / 3242.052 Output Total 700 / 2200 2050 / 4250 Balance 700 / -257.948 -750 / -1007.948 Weight last 48 hrs Weight 79.5 kg Weight 79.5 kg Weight 78.925 kg Weight 79 kg Weight 84.368 kg Physical Exam Narrative: in bed on hihh flow 02 BP elevated, VS noted heent- nca/t, eomi neck supple lungs clear heart regular abdsoft, nt, nd, + bs ext 1+ankle/ feet edema Urinary Catheter Management: Chamorro: Cath Placed During This Visit: yes Reason for Continuing Indwelling Catheter: Accurate Measurement of Urinary Output in Critically Ill Patients Urinary Catheter Date of Insertion: 06/30/24 Data 07/02/24 04:47 07/02/24 04:47 Micro: Microbiology 06/30/24 13:00 Blood Culture - Preliminary Blood NEGATIVE TO DATE 06/30/24 13:06 Blood Culture - Preliminary Blood NEGATIVE TO DATE A&P Assessment and plan (1) Acute kidney injury: 74 yr old man 1. stalin- improving- pt has a 2.1 cm left renal mass, CT w/ decompressed urinary bladder- he may have improving obstructive uropathy and prerenal azotemia- cr is improving -cont ivf -HE NEEDS UROLOGY CONSULTATION AND CONTRAST CT OF KIDNEY- CAN BE DONE AN OUTPT 2. hypernatremia and post- STALIN/ obstructive diuressi- give 1/2 ns 3. met acidosis improving 4. replace vit d 5. h/o abnormal SIFE- will repeat 6. htn- add amlodipine 5 mg d can add a beta conrad seen and examined using audio/ visual equipment with the aid of a RN Plan see above PDMP PDMP Reviewed: Not Reviewed Attestations Medical Necessity Statement*: ama, hypernatremia, stalin Time Spent in Patient Care: 16 - 35 minutes (>than 50% of time spent in counselling and/or direct pt care on unit). Coding Level of Care Code Acute Code for [facility] Diagnoses Acute kidney injury N17.9
[2024-07-02] MEDS: pantoprazole 40 mg SDV IVP (09:44)
[2024-07-02] MEDS: linezolid premix 600 MG/300 ML PREMIX 300 MG IV ×2 (09:44→20:21)
[2024-07-02] MEDS: lanolin oint 7 gm 1 APPLIC TOPICAL (09:52)
[2024-07-02] MEDS: sodium chloride 0.45% 1,000 ML 150 ML IV ×2 (09:52→16:30)
--- NOTE | 2024-07-02 10:28 | PC.NURSE ---
0957 -- Notified Dr. Garner that CT of chest has been completed. Notified that SBP continues to run 170-190's and diastolic remains > 100. Unable to give PO medications and that speech therapy has evaluated him this morning and recommends nothing by mouth. Order given per Dr. Garner for 10 mg hydralazine IVP now. 1015 -- Dr. Garner to bedside, CT report reviewed. Notified that PO medications were not able to be given. Order given for hydralazine 10mg IVP ever 4 hours prn.
[2024-07-02 11:07] LABS: D Dimer >= 20.00 ug/mLFEU (0-0.59)
[2024-07-02] MEDS: heparin 5,000 unit/mL INJ 1 mL IVP (11:59)
[2024-07-02] MEDS: heparin drip 25,000 UNIT/500 ML PREMIX 22 UNIT IV (11:59)
--- NOTE | 2024-07-02 12:42 | P.PN_ITS ---
Subjective 2 Subjective: Seen this morning. Patient has been on heated high flow 60 L. He has quite thick secretions. Once suctioned saturations do improve. He has been requiring frequent suctioning. Currently asleep however does wake up acute on command. Able to tell me his name today however earlier was able to tell nurse's name and the year. He denies being in any pain right now. CT chest performed this morning reviewed. Does have bilateral small pleural effusions and left lower lobe pneumonia. Was seen by speech therapy this morning deemed unsafe to take oral medication at this time. Has had good urine output overnight. Is off pressors. Vitals are stable. Blood pressure has been on the higher side this morning. He did get hydralazine. Venous Dopplers bilateral lower extremities reveal nonocclusive thrombi in common femoral vein. Vitals/I&O/Wt Last Vital Signs Temp 97.8 F 07/02/24 12:00 Pulse 67 07/02/24 12:00 Resp 17 07/02/24 12:00 BP 126/64 07/02/24 12:00 Pulse Ox 94 07/02/24 12:00 O2 Del Method Heated High Flow 07/02/24 12:00 O2 Flow Rate 50 07/02/24 10:58 FiO2 42 07/02/24 10:58 07/01/24 07/02/24 07/02/24 22:59 06:59 14:59 Intake Total 1400 / 3879.415 3018 / 3242.052 300 / 300 Output Total 700 / 2200 2050 / 4250 1300 / 1300 Balance 700 / -257.948 -750 / -1007.948 -1000 / -1000 Weight last 48 hrs Weight 79.5 kg Weight 79.5 kg Weight 78.925 kg Weight 79 kg Physical Exam 2 Narrative: General: Patient on high flow nasal cannula 60 L, somewhat awake and alert. Knows his name More responsive compared to yesterday. Follows commands. Seems to be hard of hearing. HEENT: Normocephalic, atraumatic, EOMI, breathing comfortably on 55 L. Did require suctioning at bedside while I was examining the patient. Cardio: Irregularly irregular, slightly tachycardic. Respiratory: Rhonchi at left base, rest mainly clear to auscultation at this time. GI: Abdomen soft, nontender, nondistended, bowel sounds +, does not grimace to palpation Extremities: No edema bilateral lower extremities, Chamorro catheter draining dark yellow urine. No evidence of blood at this time. Able to move all 4 extremities. Urinary Catheter Management: Chamorro: Cath Placed During This Visit: yes Reason for Continuing Indwelling Catheter: Accurate Measurement of Urinary Output in Critically Ill Patients Urinary Catheter Date of Insertion: 06/30/24 Data 07/02/24 04:47 07/02/24 04:47 Micro: Microbiology 06/30/24 13:00 Blood Culture - Preliminary Blood NEGATIVE TO DATE 06/30/24 13:06 Blood Culture - Preliminary Blood NEGATIVE TO DATE A&P Assessment and plan (1) Uremic encephalopathy: (2) Acute kidney injury: (3) Acute dehydration: (4) Atrial fibrillation with RVR: (5) Hypertension: Qualifiers: Hypertension type: essential hypertension Qualified Code(s): I10 - Essential (primary) hypertension (6) Bladder outlet obstruction: (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: (8) Gait instability: (9) Altered mental status: (10) Major depression: Qualifiers: Active/Remission status: currently active Major depression episode severity: moderate Major depression recurrence: recurrent Qualified Code(s): F 33.1 - Major depressive disorder, recurrent, moderate (11) Acute renal failure: (12) Leukocytosis: (13) Pneumonia: (14) Hypoxia: (15) Hypernatremia: (16) DVT (deep venous thrombosis): Plan #Uremic encephalopathy #Severe acute kidney injury most likely postrenal cause with component of prerenal cause #Atrial fibrillation with RVR #Recent influenza #History of dementia #History of hypertension #Hypotensive on arrival, responsive to fluid, does not meet sepsis criteria #Altered mental status most likely secondary to urinary encephalopathy with component of metabolic encephalopathy #Possible pneumonia #Cannot rule out aspiration #History of alcohol abuse #BPH, enlarged prostate #Dehydration ? Patient presents with severe dehydration. With severe STALIN with BUN 140 creatinine 9.1 with recent flu and enlarged prostate with chronic bladder outlet obstruction most likely the cause of his STALIN at this time. He did immediately have 2 L urine output upon insertion of Chamorro catheter. Will have to watch for polyuric phase. ? Patient is completely confused and encephalopathic most likely secondary to pneumonia however more so likely secondary to uremic encephalopathy due to BUN being 140. At baseline he is able to walk and talk as per correction. ? He was hypotensive on arrival however responded to fluid. Does not meet sepsis criteria at this time ? Will continue normal saline 125 cc/h at this point ? Have called general surgery for dialysis catheter placement. Patient may require urgent dialysis secondary to uremic encephalopathy as one of the indications. Discussed with nephrology as well. ? Will repeat BMP at this time. ? Patient is a full code as per previous records. No family present at bedside. ? He is currently in A-fib with RVR. Have started on an amiodarone drip. Will continue to do so at this time. Titrate as per protocol. ? Will check echocardiogram ? CT abdomen pelvis reviewed. Chronic outlet obstruction noted. No sign of pyelonephritis ported however perinephric stranding present. I will cover with cefepime at this time which will cover for pneumonia and possible urinary tract infection. ? N.p.o. at this time till seen by speech ? Low suspicion of stroke at this time however cannot be ruled out completely. Unable to do CTA head and neck secondary to severe STALIN. CT head negative at time of admission. May consider MRI if mental status does not improve. Symptoms have been going on for last few days. He would be out of the window for any kind of tPA at this point. ? Continue to recheck labs every 6 hours. ? Continue thiamine folic acid ? Hold home losartan and any other nephrotoxic agents. ? Patient on Keppra at home. Will check Keppra levels however we will hold off on ordering any at this time secondary to severe STALIN. Will continue to monitor patient. Will discuss with pharmacy to possibly renally dose. ? Continue Chamorro catheter for accurate output. Full code DVT prophylaxis: Heparin SQ twice daily 07/01/2024 Patient currently requiring 55 L high flow nasal cannula. Will continue to wean off oxygen as able Does have a left lower lobe pneumonia. Continue linezolid and cefepime at this time. Will check speech swallow evaluation Check MRSA nares ? Creatinine and BUN are starting to improve. Patient is more responsive today. Dialysis could not be performed last night secondary to acute hypotension requiring vasopressors. ? Vasopressors have been turned off this morning. Blood pressure is stable. ? Patient is rate controlled now. ? STALIN: Slowly improving. ? Continue LR at 125 cc/h ? Hold nephrotoxic agents ? Patient did get 1 dose of Keppra last night. ? When placed on IV Keppra twice daily ? Check speech swallow evaluation and start diet when patient able to participate better. ? Sputum culture blood culture pending at this time. -Echo pending Discussed with family regarding goals of care. They would like CPR and intubation if required at this time. Patient to remain a full code. They are also okay with dialysis if needed. ? Will repeating labs at noon today. Await recommendations from nephrology. ? Patient has a known history of COVID few weeks ago and influenza 1 to 2 weeks ago as per family. I will check respiratory viral panel to rule out RSV. 07/02/2024 -Creatinine and BUN improving. Creatinine down to 1.8. 4 L urine output in last 24 hours. ? Venous Dopplers positive for nonocclusive thrombus in right common femoral vein. If no plan for dialysis going forward will remove femoral line. Placed on heparin drip at this time. D-dimer greater than 20. Patient is requiring high flow nasal cannula 55 to 60 L however saturations do improve after suctioning. He is having quite a bit of respiratory secretions that are thick. PE cannot be ruled out at this time. Continue heparin drip which will cover for that. When and if kidney function improves and creatinine normalizes consider CTA chest to rule out PE going forward. He does have a left lower lobe pneumonia however his hypoxia is out of proportion to pneumonia at this time. No evidence of ARDS on chest CT from this morning. There is also dependent atelectasis right lung base and small bilateral pleural effusions. ? Will check ABG ? Patient has remained off of vasopressors. ? Continue linezolid and cefepime at this time. Hold off on Vanco and Zosyn secondary to STALIN. ? Respiratory viral panel negative at this time. ? Continue Keppra IV twice daily. ? Speech therapy evaluated patient however patient deemed unsafe to tolerate oral at this time. If there is no improvement by tomorrow we will consider PPN initiation. ? Echo reviewed. EF 65%, mild left ventricular hypertrophy no regional wall motion abnormalities grade 1 x 4 diastolic dysfunction. Patient does have bilateral lower extremity 1-2+ edema. ? Sodium 154. Patient is hypernatremic. Osmolality 335. He does have a free water deficit. Fluids have been switched from normal saline to half-normal saline at this time. ? Chloride 119, anion gap 19.5. Possible hyperchloremic metabolic acidosis. ? Continue Solu-Medrol 40 IV every 8 hours. Will order chest vest ? Patient still NPO. Will continue amiodarone drip at 0.5/h. Will recheck EKG. He does not have a known history of atrial fibrillation ? Overall mental status is improving. ? Family okay with intubation if needed. ? PT OT once able to participate. - Collect sputum - will talk to RN -Hypertension: Will place on hydralazine 10 every 4 hours as needed. Hold oral medications at this time due to n.p.o. status. DVT prophylaxis: Patient on heparin drip at this time GI prophylaxis: Protonix 40 IV daily Full code PDMP PDMP Reviewed: Not Reviewed Attestations 2 Medical Necessity Statement*: Requires continued ICU stay secondary to high flow nasal cannula needs. Diagnoses Uremic encephalopathy G93.49; N19 Acute kidney injury N17.9 Acute dehydration E86.0 Atrial fibrillation with RVR I48.91 Essential hypertension I10 Hypertension type: essential hypertension Bladder outlet obstruction N32.0 Dementia associated with alcoholism with behavioral disturbance F10.27 Gait instability R26.81 Altered mental status R41.82 Moderate episode of recurrent major depressive disorder F33.1 Active/Remission status: currently active Major depression episode severity: moderate Major depression recurrence: recurrent Acute renal failure N17.9 Leukocytosis D72.829 Pneumonia J18.9 Hypoxia R09.02 Hypernatremia E87.0 DVT (deep venous thrombosis) I82.409
[2024-07-02 13:37] LABS: ABG PH Result 7.46 (7.35-7.45); Alveolar-Arterial Oxygen Gradi 18.8 mmHg (5-10); Arterial Blood Gas Hematocrit 39.2 % (42-52); Base Excess ABG 1.2 mmol/L (-2.0-2.0); Blood Gas Allen Test Pos; Blood Gas Operator Identificat CAK; Blood Gas Sample Site Radial, left; Blood Gas Sample Type Arterial; Carboxyhemoglobin 0.5 %THgb (0.4-20.1); HCO3 ABG 24.7 mmol/L (22-26); HGB O2 Sat 96.7 % (95-100); Ionized Calcium Level - ABG 1.2 mmol/L (1.1-1.4); Oxygen Device HAG; Oxygen Saturation ABG 98.3; PO2 ABG 97.2 mmHg (80.0-100.0); PO2 FiO2 Ratio Arterial Blood 243; Total Hemoglobin 12.8 g/dL (14-18)
[2024-07-02 15:47] LABS: Anion Gap 18.1 (5-19); Blood Urea Nitrogen 38 mg/dL (8-23); Calcium 8.9 mg/dL (8.5-10.5); Carbon Dioxide 21 mmol/L (22-29); Chloride 115 mmol/L (98-107); Glucose 175 mg/dL (65-115); Osmolality Calculated 325 mOsm/kg (285-295); Potassium 3.1 mmol/L (3.5-5.1); Sodium 151 mmol/L (136-145)
[2024-07-02 15:50] LABS: Creatinine Clr Calc Pharmacy 51.6923
[2024-07-02] MEDS: cefepime 1,000 mg SDV 1000 MG IVP (15:58)
--- NOTE | 2024-07-02 16:26 | PC.NURSE ---
Notified Dr. Blanca that K+ is 3.1 with 1.3 creatinine and 151 sodium. Order given for 2 20meq K runs each over [address] Blanca that the HD cath will be discontinued.
[2024-07-02] MEDS: lidocaine 1% 5 ML in potassium chloride premix 100 ML 52.5 ML IV ×2 (16:40→18:30)
--- NOTE | 2024-07-02 17:04 | PC.NURSE ---
Right Femoral Temp HD cath discontinued as ordered. 2mg morphine given IVP for back pain and generalized discomfort. Tolerated fair, cath tip intact, pressure held x 15 minutes. gauze and clear occlusive dressing applied. No bleeding, bruising or hematoma noted.
--- NOTE | 2024-07-02 18:15 | PC.NURSE ---
Dressing to right groin remains c/d/i with no bleeding or bruising noted.
[2024-07-02 18:18] LABS: Partial Thromboplastin Time 115.7 SECONDS (23.9-36.7)
[2024-07-03] VITALS (67 sets, daily range): BP systolic 102–184; BP diastolic 59–129; PULSE 57–88; RESP 4–23; TEMP 36.2–36.9; O2SAT 30–99; BMI 25.6
[2024-07-03] MEDS: sodium chloride 0.45% 1,000 ML 150 ML IV ×2 (00:28→08:47)
[2024-07-03 00:57] LABS: Partial Thromboplastin Time 52.7 SECONDS (23.9-36.7)
[2024-07-03] MEDS: heparin 5,000 unit/mL INJ 1 mL IVP (01:56)
[2024-07-03] MEDS: levETIRAcetam 500 MG/100 ML PREMIX 400 MG IV ×2 (02:09→13:46)
[2024-07-03] MEDS: hyDRALAzine 20 mg/mL INJ 1 mL 10 MG IVP (03:15)
[2024-07-03] MEDS: methylPREDNISolone sod succ 40 mg/mL INJ IVP ×3 (03:15→18:08)
[2024-07-03] MEDS: morphine 4 mg/mL SDV 1 mL 2 MG IVP (03:18)
[2024-07-03 05:58] LABS: Alanine Aminotransferase 11 U/L (0-41); Albumin Level 3.3 g/dL (3.5-5.2); Alkaline Phosphatase 75 U/L (40-130); Anion Gap 17.3 (5-19); Aspartate Amino Transferase 15 U/L (0-40); Blood Urea Nitrogen 30 mg/dL (8-23); Calcium 8.7 mg/dL (8.5-10.5); Carbon Dioxide 21 mmol/L (22-29); Chloride 112 mmol/L (98-107); Globulin 3.3 g/dL (1.3-4.6); Glucose 139 mg/dL (65-115); Magnesium 1.5 mg/dL (1.7-2.3); Osmolality Calculated 312 mOsm/kg (285-295); Phosphorus 2.2 mg/dL (2.5-4.5); Potassium 3.3 mmol/L (3.5-5.1); Sodium 147 mmol/L (136-145); Total Bilirubin 0.5 mg/dL (0.15-1.2); Total Protein 6.6 g/dL (6.6-8.7)
[2024-07-03] MEDS: ipratropium-albuterol 3 mL Neb INHALATION ×3 (08:01→20:37)
[2024-07-03] MEDS: linezolid premix 600 MG/300 ML PREMIX 300 MG IV (09:04)
--- NOTE | 2024-07-03 09:08 | PM.PN ---
Subjective Subjective: more awake. no complaints but still lwthargic on hi flow 02 Medications: Reviewed: Yes Medication Review Details: Current Medications Acetaminophen (Acetaminophen 325 Mg Tablet) 650 mg PO Q6H PRN PRN Reason: Mild/Mod Pain Or Temp >/= 101 Albuterol/Ipratropium (Ipratropium-Albuterol 3 Ml Neb) 3 ml INHALATION Q6H PRN PRN Reason: SHORTNESS OF BREATH Last Admin: 07/03/24 08:01 Dose: 3 ml Amlodipine Besylate (Amlodipine 5 Mg Tablet) 5 mg PO DAILY [facility] Last Admin: 07/02/24 10:20 Dose: Not Given Cefepime HCl (Cefepime 1,000 Mg Sdv) 1,000 mg IVP Q24H [facility]; Protocol Last Admin: 07/02/24 15:58 Dose: 1,000 mg Docusate Sodium (Docusate Sodium 100 Mg Capsule) 100 mg PO BID [facility] Last Admin: 07/02/24 18:21 Dose: Not Given Ergocalciferol (Ergocalciferol (Vitamin D2) 50,000 Unit Capsule) 50,000 unit PO Q7D [facility] Stop: 07/17/24 11:11 Heparin Sodium (Porcine) (Heparin 5,000 Unit/Ml Inj 1 Ml) 0 unit IVP PRN PRN; Protocol PRN Reason: Heparin Weight Based Protocol -Subsequent Bolus Last Admin: 07/03/24 01:56 Dose: 1,600 unit Hydralazine HCl (Hydralazine 20 Mg/Ml Inj 1 Ml) 10 mg IVP Q4H PRN PRN Reason: HTN Last Admin: 07/03/24 03:15 Dose: 10 mg Amiodarone HCl/Dextrose (Nexterone) 360 mg in 200 mls @ 0 mls/hr IV .Q0M [facility]; Protocol Last Admin: 07/03/24 02:00 Dose: 0.5 mg/min, 16.67 mls/hr Sodium Chloride (Sodium Chloride 0.9%) 1,000 mls @ 0 mls/hr IV .Q0M PRN PRN Reason: hypotension or symptomatic Albumin Human (Albumin) 12.5 gm in 50 mls @ 60 mls/hr IV PRN PRN PRN Reason: Hypotension and/or symptomatic Linezolid (Zyvox Premix) 600 mg in 300 mls @ 300 mls/hr IV Q12H [facility]; Protocol Last Admin: 07/03/24 09:04 Dose: 300 mls/hr Levetiracetam (Keppra) 500 mg in 100 mls @ 400 mls/hr IV Q12H [facility] Last Infusion: 07/03/24 08:40 Dose: Infused Sodium Chloride (Sodium Chloride 0.45%) 1,000 mls @ 150 mls/hr IV .Q6H40M [facility] Last Admin: 07/03/24 08:47 Dose: 150 mls/hr Heparin Sodium/Sodium Chloride (Heparin Drip) 25,000 unit in 500 mls @ 0 mls/hr IV CONT [facility]; Protocol Last Titration: 07/03/24 01:48 Dose: 11.95 unit/kg/hr, 19 mls/hr Lanolin (Lanolin Oint 7 Gm) 1 applic TOPICAL PRN PRN PRN Reason: DRYNESS Last Admin: 07/02/24 09:52 Dose: 1 applic Methylprednisolone Sodium Succinate (Methylprednisolone Sod Succ 40 Mg/Ml Inj) 40 mg IVP Q8H [facility] Last Admin: 07/03/24 03:15 Dose: 40 mg Morphine Sulfate (Morphine 4 Mg/Ml Sdv 1 Ml) 2 mg IVP Q4H PRN PRN Reason: MODERATE PAIN Last Admin: 07/03/24 03:18 Dose: 2 mg Ondansetron HCl (Ondansetron 2 Mg/Ml Sdv 2 Ml) 4 mg IVP Q8H PRN PRN Reason: vomiting, or N/V if npo Ondansetron HCl (Ondansetron 2 Mg/Ml Sdv 2 Ml) 4 mg IVP Q6H PRN PRN Reason: NAUSEA AND VOMITING Pantoprazole Sodium (Pantoprazole 40 Mg Sdv) 40 mg IVP DAILY [facility] Last Admin: 07/02/24 09:44 Dose: 40 mg Thiamine Mononitrate (Thiamine 100 Mg Tablet) 100 mg PO DAILY [facility] Last Admin: 07/02/24 09:10 Dose: Not Given Vitals/I&O/Wt Last Vital Signs Temp 97.6 F 07/03/24 04:00 Pulse 68 07/03/24 08:14 Resp 18 07/03/24 08:07 BP 156/97 07/03/24 06:00 Pulse Ox 98 07/03/24 08:07 O2 Del Method Heated High Flow 07/03/24 08:02 O2 Flow Rate 40 07/03/24 08:07 FiO2 40 07/03/24 08:07 07/02/24 07/03/24 07/03/24 22:59 06:59 14:59 Intake Total 2240.433 / 2837.695 1626.367 / 4464.062 1100 / 1100 Output Total 950 / 2250 1750 / 4000 Balance 1290.433 / 587.695 -123.633 / 239.098 6841 / 1100 Weight last 48 hrs Weight 81 kg Weight 81 kg Weight 79.5 kg Weight 79.5 kg Physical Exam Narrative: in bed on high flow 02 VS noted heent- nca/t, eomi neck supple lungs clear heart regular abd soft, nt, nd, + bs ext 1+ankle/ feet edema neuro responsive, follows some simple commands Urinary Catheter Management: Chamorro: Cath Placed During This Visit: yes Reason for Continuing Indwelling Catheter: Accurate Measurement of Urinary Output in Critically Ill Patients Urinary Catheter Date of Insertion: 06/30/24 Data 07/02/24 04:47 07/03/24 05:07 A&P Assessment and plan (1) Acute kidney injury: 74 yr old man 1. stalin- improving- pt has a 2.1 cm left renal mass, CT w/ decompressed urinary bladder- he may have improving obstructive uropathy and prerenal azotemia- cr is improving -cont ivf -HE NEEDS UROLOGY CONSULTATION AND CONTRAST CT OF KIDNEY- CAN BE DONE AN OUTPT 2. hypernatremia and post- STALIN/ obstructive diuresis- change ivf to d5w 2b. replace k and mag 3. met acidosis improving 4. replace vit d 5. h/o abnormal SIFE- will repeat 6. htn- amlodipine 5 mg d can add a beta conrad seen and examined using audio/ visual equipment with the aid of a RN Plan see above PDMP PDMP Reviewed: Not Reviewed Attestations Medical Necessity Statement*: stalin, electrolyte abnormalities Time Spent in Patient Care: 16 - 35 minutes (>than 50% of time spent in counselling and/or direct pt care on unit). Coding Level of Care Code Acute Code for [facility] Fwd Diagnoses Acute kidney injury N17.9
[2024-07-03] MEDS: pantoprazole 40 mg SDV IVP (09:10)
[2024-07-03 09:32] LABS: Partial Thromboplastin Time 72.7 SECONDS (23.9-36.7)
[2024-07-03] MEDS: dextrose 5% + KCl 20 mEq 20 MEQ/1,000 ML BAG 75 MEQ IV (10:07)
[2024-07-03] MEDS: magnesium sulfate premix 2 GM/50 ML PIGGYBACK IV (10:13)
[2024-07-03] MEDS: potassium chloride premix 100 ML 50 MEQ IV (10:20)
[2024-07-03] MEDS: heparin drip 25,000 UNIT/500 ML PREMIX 19 UNIT IV (13:42)
--- NOTE | 2024-07-03 16:12 | PM.PN ---
Subjective Subjective: Patient appears to be more alert and awake today. He is able to tell me his name. Able to answer basic questions but does not have an extended conversation. He is currently on heated high flow 30% FiO2 at 40 L/min. He is able to have better swallow today, will transition IV to oral medications. Medications: Reviewed: Yes Medication Review Details: Current Medications Acetaminophen (Acetaminophen 325 Mg Tablet) 650 mg PO Q6H PRN PRN Reason: Mild/Mod Pain Or Temp >/= 101 Albuterol/Ipratropium (Ipratropium-Albuterol 3 Ml Neb) 3 ml INHALATION Q6H PRN PRN Reason: SHORTNESS OF BREATH Last Admin: 07/03/24 08:01 Dose: 3 ml Amlodipine Besylate (Amlodipine 5 Mg Tablet) 5 mg PO DAILY [facility] Last Admin: 07/02/24 10:20 Dose: Not Given Cefepime HCl (Cefepime 1,000 Mg Sdv) 1,000 mg IVP Q24H [facility]; Protocol Last Admin: 07/02/24 15:58 Dose: 1,000 mg Docusate Sodium (Docusate Sodium 100 Mg Capsule) 100 mg PO BID [facility] Last Admin: 07/02/24 18:21 Dose: Not Given Ergocalciferol (Ergocalciferol (Vitamin D2) 50,000 Unit Capsule) 50,000 unit PO Q7D [facility] Stop: 07/17/24 11:11 Heparin Sodium (Porcine) (Heparin 5,000 Unit/Ml Inj 1 Ml) 0 unit IVP PRN PRN; Protocol PRN Reason: Heparin Weight Based Protocol -Subsequent Bolus Last Admin: 07/03/24 01:56 Dose: 1,600 unit Hydralazine HCl (Hydralazine 20 Mg/Ml Inj 1 Ml) 10 mg IVP Q4H PRN PRN Reason: HTN Last Admin: 07/03/24 03:15 Dose: 10 mg Amiodarone HCl/Dextrose (Nexterone) 360 mg in 200 mls @ 0 mls/hr IV .Q0M [facility]; Protocol Last Admin: 07/03/24 02:00 Dose: 0.5 mg/min, 16.67 mls/hr Sodium Chloride (Sodium Chloride 0.9%) 1,000 mls @ 0 mls/hr IV .Q0M PRN PRN Reason: hypotension or symptomatic Albumin Human (Albumin) 12.5 gm in 50 mls @ 60 mls/hr IV PRN PRN PRN Reason: Hypotension and/or symptomatic Linezolid (Zyvox Premix) 600 mg in 300 mls @ 300 mls/hr IV Q12H [facility]; Protocol Last Admin: 07/03/24 09:04 Dose: 300 mls/hr Levetiracetam (Keppra) 500 mg in 100 mls @ 400 mls/hr IV Q12H [facility] Last Infusion: 07/03/24 08:40 Dose: Infused Sodium Chloride (Sodium Chloride 0.45%) 1,000 mls @ 150 mls/hr IV .Q6H40M [facility] Last Admin: 07/03/24 08:47 Dose: 150 mls/hr Heparin Sodium/Sodium Chloride (Heparin Drip) 25,000 unit in 500 mls @ 0 mls/hr IV CONT [facility]; Protocol Last Titration: 07/03/24 01:48 Dose: 11.95 unit/kg/hr, 19 mls/hr Lanolin (Lanolin Oint 7 Gm) 1 applic TOPICAL PRN PRN PRN Reason: DRYNESS Last Admin: 07/02/24 09:52 Dose: 1 applic Methylprednisolone Sodium Succinate (Methylprednisolone Sod Succ 40 Mg/Ml Inj) 40 mg IVP Q8H [facility] Last Admin: 07/03/24 03:15 Dose: 40 mg Morphine Sulfate (Morphine 4 Mg/Ml Sdv 1 Ml) 2 mg IVP Q4H PRN PRN Reason: MODERATE PAIN Last Admin: 07/03/24 03:18 Dose: 2 mg Ondansetron HCl (Ondansetron 2 Mg/Ml Sdv 2 Ml) 4 mg IVP Q8H PRN PRN Reason: vomiting, or N/V if npo Ondansetron HCl (Ondansetron 2 Mg/Ml Sdv 2 Ml) 4 mg IVP Q6H PRN PRN Reason: NAUSEA AND VOMITING Pantoprazole Sodium (Pantoprazole 40 Mg Sdv) 40 mg IVP DAILY [facility] Last Admin: 07/02/24 09:44 Dose: 40 mg Thiamine Mononitrate (Thiamine 100 Mg Tablet) 100 mg PO DAILY [facility] Last Admin: 07/02/24 09:10 Dose: Not Given Vitals/I&O/Wt Last Vital Signs Temp 97.6 F 07/03/24 13:21 Pulse 62 07/03/24 14:18 Resp 18 07/03/24 14:00 BP 111/69 07/03/24 14:00 Pulse Ox 97 07/03/24 14:00 O2 Del Method Heated High Flow 07/03/24 13:57 O2 Flow Rate 40 07/03/24 13:57 FiO2 30 07/03/24 13:57 07/03/24 07/03/24 07/03/24 06:59 14:59 22:59 Intake Total 1626.367 / 4464.062 2221.695 / 2221.695 Output Total 1750 / 4000 675 / 675 Balance -123.633 / 849.065 2111.695 / 1546.695 Weight last 48 hrs Weight 81 kg Weight 81 kg Weight 79.5 kg Weight 79.5 kg Physical Exam Narrative: General: No acute distress, AO x1-2 HEENT: PERRLA, pupils bilaterally equal and reactive, pallors not present Chest: Normal vesicular breath sounds, no added sounds, equal good air entry bilaterally CVS: S1-S2 regular, no murmurs, no tachycardia, no gallops, no rubs Abdomen: Soft, nontender, no organomegaly, bowel sounds present Neuro: No focal deficits, no facial deformity, AO x1-2, deconsitioned Urinary Catheter Management: Chamorro: Cath Placed During This Visit: yes Reason for Continuing Indwelling Catheter: Accurate Measurement of Urinary Output in Critically Ill Patients Urinary Catheter Date of Insertion: 06/30/24 Data 07/02/24 04:47 07/03/24 05:07 A&P Assessment and plan (1) Uremic encephalopathy: (2) Acute kidney injury: (3) Acute dehydration: (4) Atrial fibrillation with RVR: (5) Hypertension: Qualifiers: Hypertension type: essential hypertension Qualified Code(s): I10 - Essential (primary) hypertension (6) Bladder outlet obstruction: (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: (8) Gait instability: (9) Altered mental status: (10) Major depression: Qualifiers: Major depression recurrence: recurrent Active/Remission status: currently active Major depression episode severity: moderate Qualified Code(s): F33.1 - Major depressive disorder, recurrent, moderate (11) Acute renal failure: (12) Leukocytosis: (13) Pneumonia: (14) Hypoxia: (15) Hypernatremia: (16) DVT (deep venous thrombosis): Plan #Uremic encephalopathy #Severe acute kidney injury most likely postrenal cause with component of prerenal cause #Atrial fibrillation with RVR #Recent influenza #History of dementia #History of hypertension #Hypotensive on arrival, responsive to fluid, does not meet sepsis criteria #Altered mental status most likely secondary to urinary encephalopathy with component of metabolic encephalopathy #Possible pneumonia #Cannot rule out aspiration #History of alcohol abuse #BPH, enlarged prostate #Dehydration ? Patient presents with severe dehydration. With severe NEW with BUN 140 creatinine 9.1 with recent flu and enlarged prostate with chronic bladder outlet obstruction most likely the cause of his NEW at this time. He did immediately have 2 L urine output upon insertion of Chamorro catheter. Will have to watch for polyuric phase. ? Patient is completely confused and encephalopathic most likely secondary to pneumonia however more so likely secondary to uremic encephalopathy due to BUN being 140. At baseline he is able to walk and talk as per [facility]. ? He was hypotensive on arrival however responded to fluid. Does not meet sepsis criteria at this time ? Will continue normal saline 125 cc/h at this point ? Have called general surgery for dialysis catheter placement. Patient may require urgent dialysis secondary to uremic encephalopathy as one of the indications. Discussed with nephrology as well. ? Will repeat BMP at this time. ? Patient is a full code as per previous records. No family present at bedside. ? He is currently in A-fib with RVR. Have started on an amiodarone drip. Will continue to do so at this time. Titrate as per protocol. ? Will check echocardiogram ? CT abdomen pelvis reviewed. Chronic outlet obstruction noted. No sign of pyelonephritis ported however perinephric stranding present. I will cover with cefepime at this time which will cover for pneumonia and possible urinary tract infection. ? N.p.o. at this time till seen by speech ? Low suspicion of stroke at this time however cannot be ruled out completely. Unable to do CTA head and neck secondary to severe NEW. CT head negative at time of admission. May consider MRI if mental status does not improve. Symptoms have been going on for last few days. He would be out of the window for any kind of tPA at this point. ? Continue to recheck labs every 6 hours. ? Continue thiamine folic acid ? Hold home losartan and any other nephrotoxic agents. ? Patient on Keppra at home. Will check Keppra levels however we will hold off on ordering any at this time secondary to severe NEW. Will continue to monitor patient. Will discuss with pharmacy to possibly renally dose. ? Continue Chamorro catheter for accurate output. Full code DVT prophylaxis: Heparin SQ twice daily 07/01/2024 Patient currently requiring 55 L high flow nasal cannula. Will continue to wean off oxygen as able Does have a left lower lobe pneumonia. Continue linezolid and cefepime at this time. Will check speech swallow evaluation Check MRSA nares ? Creatinine and BUN are starting to improve. Patient is more responsive today. Dialysis could not be performed last night secondary to acute hypotension requiring vasopressors. ? Vasopressors have been turned off this morning. Blood pressure is stable. ? Patient is rate controlled now. ? NEW: Slowly improving. ? Continue LR at 125 cc/h ? Hold nephrotoxic agents ? Patient did get 1 dose of Keppra last night. ? When placed on IV Keppra twice daily ? Check speech swallow evaluation and start diet when patient able to participate better. ? Sputum culture blood culture pending at this time. -Echo pending Discussed with family regarding goals of care. They would like CPR and intubation if required at this time. Patient to remain a full code. They are also okay with dialysis if needed. ? Will repeating labs at noon today. Await recommendations from nephrology. ? Patient has a known history of COVID few weeks ago and influenza 1 to 2 weeks ago as per family. I will check respiratory viral panel to rule out RSV. 07/02/2024 -Creatinine and BUN improving. Creatinine down to 1.8. 4 L urine output in last 24 hours. ? Venous Dopplers positive for nonocclusive thrombus in right common femoral vein. If no plan for dialysis going forward will remove femoral line. Placed on heparin drip at this time. D-dimer greater than 20. Patient is requiring high flow nasal cannula 55 to 60 L however saturations do improve after suctioning. He is having quite a bit of respiratory secretions that are thick. PE cannot be ruled out at this time. Continue heparin drip which will cover for that. When and if kidney function improves and creatinine normalizes consider CTA chest to rule out PE going forward. He does have a left lower lobe pneumonia however his hypoxia is out of proportion to pneumonia at this time. No evidence of ARDS on chest CT from this morning. There is also dependent atelectasis right lung base and small bilateral pleural effusions. ? Will check ABG ? Patient has remained off of vasopressors. ? Continue linezolid and cefepime at this time. Hold off on Vanco and Zosyn secondary to NEW. ? Respiratory viral panel negative at this time. ? Continue Keppra IV twice daily. ? Speech therapy evaluated patient however patient deemed unsafe to tolerate oral at this time. If there is no improvement by tomorrow we will consider PPN initiation. ? Echo reviewed. EF 65%, mild left ventricular hypertrophy no regional wall motion abnormalities grade 1 x 4 diastolic dysfunction. Patient does have bilateral lower extremity 1-2+ edema. ? Sodium 154. Patient is hypernatremic. Osmolality 335. He does have a free water deficit. Fluids have been switched from normal saline to half-normal saline at this time. ? Chloride 119, anion gap 19.5. Possible hyperchloremic metabolic acidosis. ? Continue Solu-Medrol 40 IV every 8 hours. Will order chest vest ? Patient still NPO. Will continue amiodarone drip at 0.5/h. Will recheck EKG. He does not have a known history of atrial fibrillation ? Overall mental status is improving. ? Family okay with intubation if needed. ? PT OT once able to participate. - Collect sputum - will talk to RN -Hypertension: Will place on hydralazine 10 every 4 hours as needed. Hold oral medications at this time due to n.p.o. status. DVT prophylaxis: Patient on heparin drip at this time GI prophylaxis: Protonix 40 IV daily Full code July 03, 2024 Chart reviewed. 74-year-old male admitted on 06/30 with AMS sent from [place]. Recent h/o FLU , recent h/o hematuria needing Chamorro placement on arrival. New with Cr at 9. CT head negative. HD catheter placed 06/30, however eventually did not need to start dialysis.. He had h for which she has remained on amiodarone infusion. Ypernatremia and A fib RVR on admission. on 07/01 he was started on 2 pressors, which are currently weaned off.. Ct abdomen with enlarged prostate, likely chronic bladder outlet obstruction, 2.1 cm renal mass. We do not have urology services available inpatient, this will need further evaluation once he is discharged from the hospital. For now we will continue to maintain his Chamorro catheter and set up urology as outpatient. New now improving. Creatinine is improving to 1.2. Urine output 3.3 L. Hospital course also notable for hypoxic resp failure on HHF oxygen. Chest imaging shows left lower lobe pneumonia, however do not anticipate a small patch of pneumonia to be responsible for significant hypoxia is currently noted. DVT +. Presumably patient has a PE given discovery of DVT. Deferred CT with contrast due to NEW, recently recovered kidney function, no change in management with additional discovery of PE on top of DVT. Patient is on anticoagulation with heparin drip at this time. Will transition to Lovenox 1 mg/kg every 12 hours today since kidney function has recovered Closely monitor platelets. Currently down at 120 from 160 upon admission. Blood cx negative. UA negative. on cefepime and linezolid empirically check MRSA nasal screen. If negative discontinue linezolid. RVP negative. Afebrile.? Patient is continuing to be encephalopathic. This may be related to toxic metabolic encephalopathy from acute events as described above. CT of the head was negative for stroke upon admission. Per penitentiary report patient is typically ambulatory at baseline. Able to have a full conversation. No known swallowing issues. Will order PT OT evaluation. Speech therapy evaluation appreciated. If continues to remain persistently encephalopathic, will obtain MRI of the head. PDMP PDMP Reviewed: Not Reviewed Attestations Medical Necessity Statement*: Transition IV to oral amiodarone, IV heparin to subcutaneous Lovenox, continue heated high flow. Unable to wean down oxygen at this time. Ordered therapy assessment. Coding Level of Care Code Acute Code for [facility] Fwd Diagnoses Uremic encephalopathy G93.49; N19 Acute kidney injury N17.9 Acute dehydration E86.0 Atrial fibrillation with RVR I48.91 Essential hypertension I10 Hypertension type: essential hypertension Bladder outlet obstruction N32.0 Dementia associated with alcoholism with behavioral disturbance F10.27 Gait instability R26.81 Altered mental status R41.82 Moderate episode of recurrent major depressive disorder F33.1 Major depression recurrence: recurrent Active/Remission status: currently active Major depression episode severity: moderate Acute renal failure N17.9 Leukocytosis D72.829 Pneumonia J18.9 Hypoxia R09.02 Hypernatremia E87.0 DVT (deep venous thrombosis) I82.409
[2024-07-03] MEDS: cefepime 1,000 mg SDV 1000 MG IVP (17:27)
[2024-07-03] MEDS: levETIRAcetam 1,000 mg/10 mL UDC 500 MG PO (17:29)
[2024-07-03] MEDS: docusate sodium 100 mg Capsule PO (17:29)
[2024-07-03] MEDS: amiodarone 200 mg Tablet 400 MG PO (17:29)
[2024-07-03 18:44] LABS: MRSA PCR OZH (swab) NOT DETECTED (Negative)
[2024-07-03] MEDS: enoxaparin 80 mg/0.8 mL Syringe SUBCUT (20:32)
[2024-07-04] VITALS (42 sets, daily range): BP systolic 112–183; BP diastolic 69–102; PULSE 52–72; RESP 11–26; TEMP 36.4–37.3; O2SAT 91–100; BMI 25.6
[2024-07-04] MEDS: dextrose 5% + KCl 20 mEq 20 MEQ/1,000 ML BAG 75 MEQ IV ×3 (00:04→15:42)
[2024-07-04] MEDS: methylPREDNISolone sod succ 40 mg/mL INJ IVP ×2 (02:07→11:57)
[2024-07-04 04:08] LABS: Basophils % 0.1 %; Hematocrit 37.3 % (37-53); Lymphocytes # 1.1 10^3/uL (0.8-4.8); Mean Corpuscular HGB Conc 33.2 g/dL (30-55); Mean Corpuscular Hemoglobin 30.3 pg (27-33); Mean Corpuscular Volume 91.2 fl (82-101); Mean Platelet Volume 11.2 fL (7.4-10.4); Monocytes # 0.6 10^3/uL (0.2-0.9); Monocytes % 4.1 %; Neutrophils # 13.42 10^3/uL (1.8-7.7); Neutrophils % 86.7 %; Nucleated Red Blood Cells % 0 %; Platelet Count 179 10^3/cmm (157-399); Red Blood Count 4.09 10^6/uL (3.85-5.65); Red Cell Distribution Width 12.7 % (12.1-15.1); White Blood Count 15.48 10^3/uL (3.29-11.43)
[2024-07-04 04:27] LABS: Alanine Aminotransferase 16 U/L (0-41); Albumin Level 3.1 g/dL (3.5-5.2); Alkaline Phosphatase 71 U/L (40-130); Anion Gap 17.3 (5-19); Aspartate Amino Transferase 22 U/L (0-40); Blood Urea Nitrogen 28 mg/dL (8-23); Calcium 8.6 mg/dL (8.5-10.5); Carbon Dioxide 22 mmol/L (22-29); Chloride 105 mmol/L (98-107); Creatinine Clr Calc Pharmacy 61.5758; Globulin 3.3 g/dL (1.3-4.6); Glucose 149 mg/dL (65-115); Magnesium 1.7 mg/dL (1.7-2.3); Osmolality Calculated 300 mOsm/kg (285-295); Phosphorus 2.4 mg/dL (2.5-4.5); Potassium 3.3 mmol/L (3.5-5.1); Sodium 141 mmol/L (136-145); Total Bilirubin 0.5 mg/dL (0.15-1.2); Total Protein 6.4 g/dL (6.6-8.7)
--- NOTE | 2024-07-04 08:04 | PM.PN ---
Subjective Subjective: swollen, more responsive. still on iv fluids and oxygen Medications: Reviewed: Yes Medication Review Details: Current Medications Acetaminophen (Acetaminophen 325 Mg Tablet) 650 mg PO Q6H PRN PRN Reason: Mild/Mod Pain Or Temp >/= 101 Albuterol/Ipratropium (Ipratropium-Albuterol 3 Ml Neb) 3 ml INHALATION Q6H PRN PRN Reason: SHORTNESS OF BREATH Last Admin: 07/03/24 20:37 Dose: 3 ml Amiodarone HCl (Amiodarone 200 Mg Tablet) 400 mg PO BID [facility] Last Admin: 07/03/24 17:29 Dose: 400 mg Amlodipine Besylate (Amlodipine 5 Mg Tablet) 5 mg PO DAILY [facility] Last Admin: 07/03/24 10:47 Dose: Not Given Cefepime HCl (Cefepime 1,000 Mg Sdv) 1,000 mg IVP Q24H [facility]; Protocol Last Admin: 07/03/24 17:27 Dose: 1,000 mg Docusate Sodium (Docusate Sodium 100 Mg Capsule) 100 mg PO BID [facility] Last Admin: 07/03/24 17:29 Dose: 100 mg Enoxaparin Sodium (Enoxaparin 80 Mg/0.8 Ml Syringe) 80 mg SUBCUT Q12H [facility] Last Admin: 07/03/24 20:32 Dose: 80 mg Ergocalciferol (Ergocalciferol (Vitamin D2) 50,000 Unit Capsule) 50,000 unit PO Q7D [facility] Stop: 07/17/24 11:11 Last Admin: 07/03/24 10:47 Dose: Not Given Hydralazine HCl (Hydralazine 20 Mg/Ml Inj 1 Ml) 10 mg IVP Q4H PRN PRN Reason: HTN Last Admin: 07/03/24 03:15 Dose: 10 mg Sodium Chloride (Sodium Chloride 0.9%) 1,000 mls @ 0 mls/hr IV .Q0M PRN PRN Reason: hypotension or symptomatic Albumin Human (Albumin) 12.5 gm in 50 mls @ 60 mls/hr IV PRN PRN PRN Reason: Hypotension and/or symptomatic Potassium Chloride/Dextrose (Dextrose 5% + Kcl 20 Meq) 20 meq in 1,000 mls @ 75 mls/hr IV .[id number] [facility] Last Admin: 07/04/24 00:04 Dose: 75 mls/hr Potassium Chloride (K-Ortiz Premix) 100 mls @ 50 mls/hr IV ONCE [facility] Last Infusion: 07/03/24 13:24 Dose: Infused Lanolin (Lanolin Oint 7 Gm) 1 applic TOPICAL PRN PRN PRN Reason: DRYNESS Last Admin: 07/02/24 09:52 Dose: 1 applic Levetiracetam (Levetiracetam 1,000 Mg/10 Ml Udc) 500 mg PO BID [facility] Last Admin: 07/03/24 17:29 Dose: 500 mg Methylprednisolone Sodium Succinate (Methylprednisolone Sod Succ 40 Mg/Ml Inj) 40 mg IVP Q8H [facility] Last Admin: 07/04/24 02:07 Dose: 40 mg Morphine Sulfate (Morphine 4 Mg/Ml Sdv 1 Ml) 2 mg IVP Q4H PRN PRN Reason: MODERATE PAIN Last Admin: 07/03/24 03:18 Dose: 2 mg Ondansetron HCl (Ondansetron 2 Mg/Ml Sdv 2 Ml) 4 mg IVP Q8H PRN PRN Reason: vomiting, or N/V if npo Ondansetron HCl (Ondansetron 2 Mg/Ml Sdv 2 Ml) 4 mg IVP Q6H PRN PRN Reason: NAUSEA AND VOMITING Pantoprazole Sodium (Pantoprazole 40 Mg Sdv) 40 mg IVP DAILY [facility] Last Admin: 07/03/24 09:10 Dose: 40 mg Thiamine Mononitrate (Thiamine 100 Mg Tablet) 100 mg PO DAILY [facility] Last Admin: 07/03/24 10:47 Dose: Not Given Vitals/I&O/Wt Last Vital Signs Temp 98.4 F 07/04/24 04:00 Pulse 61 07/04/24 07:00 Resp 14 07/04/24 07:00 BP 167/93 07/04/24 07:00 Pulse Ox 99 07/04/24 07:00 O2 Del Method Heated High Flow 07/04/24 06:30 O2 Flow Rate 45 07/04/24 04:20 FiO2 35 07/04/24 04:20 07/03/24 07/04/24 07/04/24 22:59 06:59 14:59 Intake Total 143.607 / 2365.302 1000 / 3365.302 Output Total 200 / 875 1000 / 1875 Balance -56.393 / 1490.302 0 / 1490.302 Weight last 48 hrs Weight 81 kg Weight 81 kg Weight 81 kg Weight 81 kg Physical Exam Narrative: in bed on high flow 02 VS noted heent- nca/t, eomi neck supple lungs clear heart regular abd soft, nt, nd, + bs ext 1+ankle/ feet edema neuro responsive, follows some simple commands Urinary Catheter Management: Chamorro: Cath Placed During This Visit: yes Reason for Continuing Indwelling Catheter: Accurate Measurement of Urinary Output in Critically Ill Patients Urinary Catheter Date of Insertion: 06/30/24 Data 07/04/24 03:24 07/04/24 03:24 A&P Assessment and plan (1) Acute kidney injury: 74 yr old man 1. stalin- improving- pt has a 2.1 cm left renal mass, CT w/ decompressed urinary bladder- he may have improving obstructive uropathy and prerenal azotemia- cr is improving -cont ivf -HE NEEDS UROLOGY CONSULTATION AND CONTRAST CT OF KIDNEY- CAN BE DONE AN OUTPT 2. hypernatremia and post- STALIN/ obstructive diuresis- improving w/ d5w -dec iv rate 3. replace k and mag as needed 4. met acidosis improving- as hyperchloremia improves 5. replace vit d 6. h/o abnormal SIFE- will repeat 6. htn- amlodipine 5 mg d can add a beta conrad seen and examined using audio/ visual equipment with the aid of a RN Plan see above PDMP PDMP Reviewed: Not Reviewed Attestations Medical Necessity Statement*: ams, hypokalemic, not eating Time Spent in Patient Care: 16 - 35 minutes (>than 50% of time spent in counselling and/or direct pt care on unit). Coding Level of Care Code Acute Code for Chg Fwd Diagnoses Acute kidney injury N17.9
[2024-07-04] MEDS: thiamine 100 mg Tablet PO (08:34)
[2024-07-04] MEDS: levETIRAcetam 1,000 mg/10 mL UDC 500 MG PO ×2 (08:35→17:10)
[2024-07-04] MEDS: amlodipine 5 mg Tablet PO (08:35)
[2024-07-04] MEDS: docusate sodium 100 mg Capsule PO ×2 (08:35→17:09)
[2024-07-04] MEDS: amiodarone 200 mg Tablet 400 MG PO ×2 (08:35→17:09)
[2024-07-04] MEDS: enoxaparin 80 mg/0.8 mL Syringe SUBCUT ×2 (08:36→20:54)
[2024-07-04] MEDS: pantoprazole 40 mg SDV IVP (08:36)
[2024-07-04] MEDS: potassium chloride ER 20 mEq Tablet PO (08:47)
[2024-07-04] MEDS: magnesium sulfate premix 1 GM/100 ML PIGGYBACK IV (08:47)
[2024-07-04] MEDS: hyDRALAzine 10 mg Tablet PO ×4 (08:47→20:54)
[2024-07-04] MEDS: ipratropium-albuterol 3 mL Neb INHALATION ×2 (09:19→21:54)
[2024-07-04] MEDS: cefepime 1,000 mg SDV 1000 MG IVP ×2 (09:26→20:54)
--- NOTE | 2024-07-04 09:30 | MR_ITS ---
WS: [id number] MRI HEAD WITHOUT CONTRAST TECHNIQUE: Sagittal T1, T2 axial, T2 axial FLAIR, axial and coronal T1 images, axial susceptibility weighted imaging, axial diffusion weighted images, and coronal T2 images were obtained. CLINICAL INFORMATION: AMS COMPARISON: MRI 10/27/2022 FINDINGS: No evidence of restricted diffusion to suggest acute ischemia. Ventricular system and basal cisterns are patent. Moderate small vessel changes. Moderate parenchymal volume loss. No hemosiderin on the susceptibility weighted images. Normal posterior fossa. Normal vascular flow voids at the skull base. No extra- axial fluid collections. No evidence of mass or mass effect. Mild mucosal thickening in the paranasal sinuses. Mastoid air cells are well aerated. Normal posterior nasopharynx. Moderate symmetric atrophy temporal lobes and hippocampal formations. MR/MR head wo con* [id number] IMPRESSION: 1. No evidence of restricted diffusion to suggest acute ischemia. 2. Moderate small vessel changes with moderate parenchymal volume loss. 3. Mild mucosal thickening in the paranasal sinuses. 4. No other acute findings.
--- NOTE | 2024-07-04 12:16 | XRR_ITS ---
PROCEDURE INFORMATION: Exam: XR Chest Exam date and time: 07/04/2024 12:29 PM Age: 74 years old Clinical indication: Shortness of breath; Additional info: Aspiration TECHNIQUE: Imaging protocol: Radiologic exam of the chest. Views: 1 view. COMPARISON: CT chest con [id number] 07/02/2024 9:23 AM FINDINGS: Lungs: Mild atelectasis or infiltrate in the left lower lobe. Pleural spaces: Unremarkable. No pleural effusion. No pneumothorax. Heart/Mediastinum: See Vasculature finding. Vasculature: Mild cardiomegaly and uncoiling of the thoracic aorta. Bones/joints: Unremarkable. XR/XR chest 1V portable [id number] IMPRESSION: Mild opacity at the left lung base.
[2024-07-04 13:24] LABS: KAPPA LIGHT CHAIN, FREE, SERUM 31.8 mg/L (3.3-19.4); KAPPA/LAMBDA LIGHT CHAINS FREE 0.48 (0.26-1.65)
--- NOTE | 2024-07-04 15:08 | PC.NURSE ---
Patient transferred from ICU to CSU via a bed at 1455. Patient did go to MRI prior to arriving of the unit.
[2024-07-04 17:10] LABS: Glucose Point of Care 116 mg/dL (70-110)
--- NOTE | 2024-07-04 17:23 | P.PN_ITS ---
Subjective 2 Subjective: Able to eat today, attempted to participated with PT today Medications: Reviewed: Yes Medication Review Details: Current Medications Acetaminophen (Acetaminophen 325 Mg Tablet) 650 mg PO Q6H PRN PRN Reason: Mild/Mod Pain Or Temp >/= 101 Albuterol/Ipratropium (Ipratropium-Albuterol 3 Ml Neb) 3 ml INHALATION Q6H PRN PRN Reason: SHORTNESS OF BREATH Last Admin: 07/03/24 20:37 Dose: 3 ml Amiodarone HCl (Amiodarone 200 Mg Tablet) 400 mg PO BID [facility] Last Admin: 07/03/24 17:29 Dose: 400 mg Amlodipine Besylate (Amlodipine 5 Mg Tablet) 5 mg PO DAILY [facility] Last Admin: 07/03/24 10:47 Dose: Not Given Cefepime HCl (Cefepime 1,000 Mg Sdv) 1,000 mg IVP Q24H [facility]; Protocol Last Admin: 07/03/24 17:27 Dose: 1,000 mg Docusate Sodium (Docusate Sodium 100 Mg Capsule) 100 mg PO BID [facility] Last Admin: 07/03/24 17:29 Dose: 100 mg Enoxaparin Sodium (Enoxaparin 80 Mg/0.8 Ml Syringe) 80 mg SUBCUT Q12H [facility] Last Admin: 07/03/24 20:32 Dose: 80 mg Ergocalciferol (Ergocalciferol (Vitamin D2) 50,000 Unit Capsule) 50,000 unit PO Q7D [facility] Stop: 07/17/24 11:11 Last Admin: 07/03/24 10:47 Dose: Not Given Hydralazine HCl (Hydralazine 20 Mg/Ml Inj 1 Ml) 10 mg IVP Q4H PRN PRN Reason: HTN Last Admin: 07/03/24 03:15 Dose: 10 mg Sodium Chloride (Sodium Chloride 0.9%) 1,000 mls @ 0 mls/hr IV .Q0M PRN PRN Reason: hypotension or symptomatic Albumin Human (Albumin) 12.5 gm in 50 mls @ 60 mls/hr IV PRN PRN PRN Reason: Hypotension and/or symptomatic Potassium Chloride/Dextrose (Dextrose 5% + Kcl 20 Meq) 20 meq in 1,000 mls @ 75 mls/hr IV .[id number] [facility] Last Admin: 07/04/24 00:04 Dose: 75 mls/hr Potassium Chloride (K-Ortiz Premix) 100 mls @ 50 mls/hr IV ONCE [facility] Last Infusion: 07/03/24 13:24 Dose: Infused Lanolin (Lanolin Oint 7 Gm) 1 applic TOPICAL PRN PRN PRN Reason: DRYNESS Last Admin: 07/02/24 09:52 Dose: 1 applic Levetiracetam (Levetiracetam 1,000 Mg/10 Ml Udc) 500 mg PO BID [facility] Last Admin: 07/03/24 17:29 Dose: 500 mg Methylprednisolone Sodium Succinate (Methylprednisolone Sod Succ 40 Mg/Ml Inj) 40 mg IVP Q8H [facility] Last Admin: 07/04/24 02:07 Dose: 40 mg Morphine Sulfate (Morphine 4 Mg/Ml Sdv 1 Ml) 2 mg IVP Q4H PRN PRN Reason: MODERATE PAIN Last Admin: 07/03/24 03:18 Dose: 2 mg Ondansetron HCl (Ondansetron 2 Mg/Ml Sdv 2 Ml) 4 mg IVP Q8H PRN PRN Reason: vomiting, or N/V if npo Ondansetron HCl (Ondansetron 2 Mg/Ml Sdv 2 Ml) 4 mg IVP Q6H PRN PRN Reason: NAUSEA AND VOMITING Pantoprazole Sodium (Pantoprazole 40 Mg Sdv) 40 mg IVP DAILY [facility] Last Admin: 07/03/24 09:10 Dose: 40 mg Thiamine Mononitrate (Thiamine 100 Mg Tablet) 100 mg PO DAILY [facility] Last Admin: 07/03/24 10:47 Dose: Not Given Vitals/I&O/Wt Last Vital Signs Temp 97.6 F 07/04/24 16:00 Pulse 57 L 07/04/24 16:00 Resp 18 07/04/24 16:00 BP 172/96 07/04/24 16:00 Pulse Ox 96 07/04/24 16:00 O2 Del Method Nasal Cannula 07/04/24 16:00 O2 Flow Rate 3 07/04/24 16:00 FiO2 30 07/04/24 12:22 07/04/24 07/04/24 07/04/24 06:59 14:59 22:59 Intake Total 1000 / 3365.302 1213.75 / 1213.75 178.75 / 1392.50 Output Total 1000 / 1875 Balance 0 / 4290.435 0921.75 / 1213.75 178.75 / 1392.50 Weight last 48 hrs Weight 81 kg Weight 81 kg Weight 81 kg Weight 81 kg Physical Exam 2 Narrative: General: No acute distress, AO x3 HEENT: PERRLA, pupils bilaterally equal and reactive, pallors not present Chest: Normal vesicular breath sounds, no added sounds, equal good air entry bilaterally CVS: S1-S2 regular, no murmurs, no tachycardia, no gallops, no rubs Abdomen: Soft, nontender, no organomegaly, bowel sounds present Neuro: No focal deficits, significant deconditioning as a result of his acute illness Urinary Catheter Management: Chamorro: Cath Placed During This Visit: yes Reason for Continuing Indwelling Catheter: Accurate Measurement of Urinary Output in Critically Ill Patients Urinary Catheter Date of Insertion: 06/30/24 Data 07/04/24 03:24 07/04/24 03:24 A&P Assessment and plan (1) Uremic encephalopathy: (2) Acute kidney injury: (3) Acute dehydration: (4) Atrial fibrillation with RVR: (5) Hypertension: Qualifiers: Hypertension type: essential hypertension Qualified Code(s): I10 - Essential (primary) hypertension (6) Bladder outlet obstruction: (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: (8) Gait instability: (9) Altered mental status: (10) Major depression: Qualifiers: Major depression recurrence: recurrent Active/Remission status: c urrently active Major depression episode severity: moderate Qualified Code(s): F33.1 - Major depressive disorder, recurrent, moderate (11) Acute renal failure: (12) Leukocytosis: (13) Pneumonia: (14) Hypoxia: (15) Hypernatremia: (16) DVT (deep venous thrombosis): Plan #Uremic encephalopathy #Severe acute kidney injury most likely postrenal cause with component of prerenal cause #Atrial fibrillation with RVR #Recent influenza #History of dementia #History of hypertension #Hypotensive on arrival, responsive to fluid, does not meet sepsis criteria #Altered mental status most likely secondary to urinary encephalopathy with component of metabolic encephalopathy #Possible pneumonia #Cannot rule out aspiration #History of alcohol abuse #BPH, enlarged prostate #Dehydration ? Patient presents with severe dehydration. With severe NEW with BUN 140 creatinine 9.1 with recent flu and enlarged prostate with chronic bladder outlet obstruction most likely the cause of his NEW at this time. He did immediately have 2 L urine output upon insertion of Chamorro catheter. Will have to watch for polyuric phase. ? Patient is completely confused and encephalopathic most likely secondary to pneumonia however more so likely secondary to uremic encephalopathy due to BUN being 140. At baseline he is able to walk and talk as per fpc. ? He was hypotensive on arrival however responded to fluid. Does not meet sepsis criteria at this time ? Will continue normal saline 125 cc/h at this point ? Have called general surgery for dialysis catheter placement. Patient may require urgent dialysis secondary to uremic encephalopathy as one of the indications. Discussed with nephrology as well. ? Will repeat BMP at this time. ? Patient is a full code as per previous records. No family present at bedside. ? He is currently in A-fib with RVR. Have started on an amiodarone drip. Will continue to do so at this time. Titrate as per protocol. ? Will check echocardiogram ? CT abdomen pelvis reviewed. Chronic outlet obstruction noted. No sign of pyelonephritis ported however perinephric stranding present. I will cover with cefepime at this time which will cover for pneumonia and possible urinary tract infection. ? N.p.o. at this time till seen by speech ? Low suspicion of stroke at this time however cannot be ruled out completely. Unable to do CTA head and neck secondary to severe NEW. CT head negative at time of admission. May consider MRI if mental status does not improve. Symptoms have been going on for last few days. He would be out of the window for any kind of tPA at this point. ? Continue to recheck labs every 6 hours. ? Continue thiamine folic acid ? Hold home losartan and any other nephrotoxic agents. ? Patient on Keppra at home. Will check Keppra levels however we will hold off on ordering any at this time secondary to severe NEW. Will continue to monitor patient. Will discuss with pharmacy to possibly renally dose. ? Continue Chamorro catheter for accurate output. Full code DVT prophylaxis: Heparin SQ twice daily 07/01/2024 Patient currently requiring 55 L high flow nasal cannula. Will continue to wean off oxygen as able Does have a left lower lobe pneumonia. Continue linezolid and cefepime at this time. Will check speech swallow evaluation Check MRSA nares ? Creatinine and BUN are starting to improve. Patient is more responsive today. Dialysis could not be performed last night secondary to acute hypotension requiring vasopressors. ? Vasopressors have been turned off this morning. Blood pressure is stable. ? Patient is rate controlled now. ? NEW: Slowly improving. ? Continue LR at 125 cc/h ? Hold nephrotoxic agents ? Patient did get 1 dose of Keppra last night. ? When placed on IV Keppra twice daily ? Check speech swallow evaluation and start diet when patient able to participate better. ? Sputum culture blood culture pending at this time. -Echo pending Discussed with family regarding goals of care. They would like CPR and intubation if required at this time. Patient to remain a full code. They are also okay with dialysis if needed. ? Will repeating labs at noon today. Await recommendations from nephrology. ? Patient has a known history of COVID few weeks ago and influenza 1 to 2 weeks ago as per family. I will check respiratory viral panel to rule out RSV. 07/02/2024 -Creatinine and BUN improving. Creatinine down to 1.8. 4 L urine output in last 24 hours. ? Venous Dopplers positive for nonocclusive thrombus in right common femoral vein. If no plan for dialysis going forward will remove femoral line. Placed on heparin drip at this time. D-dimer greater than 20. Patient is requiring high flow nasal cannula 55 to 60 L however saturations do improve after suctioning. He is having quite a bit of respiratory secretions that are thick. PE cannot be ruled out at this time. Continue heparin drip which will cover for that. When and if kidney function improves and creatinine normalizes consider CTA chest to rule out PE going forward. He does have a left lower lobe pneumonia however his hypoxia is out of proportion to pneumonia at this time. No evidence of ARDS on chest CT from this morning. There is also dependent atelectasis right lung base and small bilateral pleural effusions. ? Will check ABG ? Patient has remained off of vasopressors. ? Continue linezolid and cefepime at this time. Hold off on Vanco and Zosyn secondary to NEW. ? Respiratory viral panel negative at this time. ? Continue Keppra IV twice daily. ? Speech therapy evaluated patient however patient deemed unsafe to tolerate oral at this time. If there is no improvement by tomorrow we will consider PPN initiation. ? Echo reviewed. EF 65%, mild left ventricular hypertrophy no regional wall motion abnormalities grade 1 x 4 diastolic dysfunction. Patient does have bilateral lower extremity 1-2+ edema. ? Sodium 154. Patient is hypernatremic. Osmolality 335. He does have a free water deficit. Fluids have been switched from normal saline to half-normal saline at this time. ? Chloride 119, anion gap 19.5. Possible hyperchloremic metabolic acidosis. ? Continue Solu-Medrol 40 IV every 8 hours. Will order chest vest ? Patient still NPO. Will continue amiodarone drip at 0.5/h. Will recheck EKG. He does not have a known history of atrial fibrillation ? Overall mental status is improving. ? Family okay with intubation if needed. ? PT OT once able to participate. - Collect sputum - will talk to RN -Hypertension: Will place on hydralazine 10 every 4 hours as needed. Hold oral medications at this time due to n.p.o. status. DVT prophylaxis: Patient on heparin drip at this time GI prophylaxis: Protonix 40 IV daily Full code July 03, 2024 Chart reviewed. 74-year-old male admitted on 06/30 with AMS sent from [place]. Recent h/o FLU , recent h/o hematuria needing Chamorro placement on arrival. New with Cr at 9. CT head negative. HD catheter placed 06/30, however eventually did not need to start dialysis.. He had h for which she has remained on amiodarone infusion. Ypernatremia and A fib RVR on admission. on 07/01 he was started on 2 pressors, which are currently weaned off.. Ct abdomen with enlarged prostate, likely chronic bladder outlet obstruction, 2.1 cm renal mass. We do not have urology services available inpatient, this will need further evaluation once he is discharged from the hospital. For now we will continue to maintain his Chamorro catheter and set up urology as outpatient. New now improving. Creatinine is improving to 1.2. Urine output 3.3 L. Hospital course also notable for hypoxic resp failure on HHF oxygen. Chest imaging shows left lower lobe pneumonia, however do not anticipate a small patch of pneumonia to be responsible for significant hypoxia is currently noted. DVT +. Presumably patient has a PE given discovery of DVT. Deferred CT with contrast due to NEW, recently recovered kidney function, no change in management with additional discovery of PE on top of DVT. Patient is on anticoagulation with heparin drip at this time. Will transition to Lovenox 1 mg/kg every 12 hours today since kidney function has recovered Closely monitor platelets. Currently down at 120 from 160 upon admission. Blood cx negative. UA negative. on cefepime and linezolid empirically check MRSA nasal screen. If negative discontinue linezolid. RVP negative. Afebrile.? Patient is continuing to be encephalopathic. This may be related to toxic metabolic encephalopathy from acute events as described above. CT of the head was negative for stroke upon admission. Per fpc report patient is typically ambulatory at baseline. Able to have a full conversation. No known swallowing issues. Will order PT OT evaluation. Speech therapy evaluation appreciated. If continues to remain persistently encephalopathic, will obtain MRI of the head. 07/04/24: Bradycardic today, HR ranging ~55, reduce amiodarone to 400mg daily at this time. BP 170 systolic this am, increase amlodipine to 10mg daily, hydralazine added earlier today by nephrology. MRI head without signs of acute stroke. Patient participated with PT today- noted to be mod to max assist, unable to ambulate at this time. Likely severe deconditioining is related to acute critical illness. NEW remains resolved, good urine output, previously placed HD cath removed on 07/02. Noted leukocytosis today ? cause. CXR with unchanged infiltrate, check UA. May be related to high dose steroids, reduce methylpred to 40mg daily from q8h today and reassess. No fever. No other localizing signs of infection at this time. Will plan to complete 5-7 day course of cefepime for pneumonia. Hypernatremia improving today , patient developing LE swelling, reduce IVF rate to 50 cc/hr Transfer out of ICU to CSU today PDMP PDMP Reviewed: Not Reviewed Attestations 2 Medical Necessity Statement*: transfer out of ICU, MRI head completed today, PT eval, IVF for hypernatremia, replete electrolytes Coding Level of Care Code Acute Code for Chg Fwd Diagnoses Uremic encephalopathy G93.49; N19 Acute kidney injury N17.9 Acute dehydration E86.0 Atrial fibrillation with RVR I48.91 Essential hypertension I10 Hypertension type: essential hypertension Bladder outlet obstruction N32.0 Dementia associated with alcoholism with behavioral disturbance F10.27 Gait instability R26.81 Altered mental status R41.82 Moderate episode of recurrent major depressive disorder F33.1 Major depression recurrence: recurrent Active/Remission status: currently active Major depression episode severity: moderate Acute renal failure N17.9 Leukocytosis D72.829 Pneumonia J18.9 Hypoxia R09.02 Hypernatremia E87.0 DVT (deep venous thrombosis) I82.409
[2024-07-04 20:49] LABS: Glucose Point of Care 122 mg/dL (70-110)
[2024-07-05] VITALS (11 sets, daily range): BP systolic 117–155; BP diastolic 71–84; PULSE 44–59; RESP 11–18; TEMP 36.3–36.7; O2SAT 96–99; BMI 25.6
[2024-07-05] MEDS: morphine 4 mg/mL SDV 1 mL 2 MG IVP (02:36)
[2024-07-05 03:45] LABS: Basophils % 0.1 %; Hematocrit 37.4 % (37-53); Lymphocytes # 1.7 10^3/uL (0.8-4.8); Lymphocytes % 11.8 %; Mean Corpuscular HGB Conc 33.7 g/dL (30-55); Mean Platelet Volume 11.4 fL (7.4-10.4); Monocytes # 1.1 10^3/uL (0.2-0.9); Monocytes % 7.2 %; Neutrophils # 11.65 10^3/uL (1.8-7.7); Neutrophils % 78.7 %; Nucleated Red Blood Cells % 0 %; Platelet Count 188 10^3/cmm (157-399); Red Cell Distribution Width 12.2 % (12.1-15.1)
[2024-07-05 04:19] LABS: Alanine Aminotransferase 23 U/L (0-41); Albumin Level 3.1 g/dL (3.5-5.2); Alkaline Phosphatase 70 U/L (40-130); Anion Gap 16.5 (5-19); Aspartate Amino Transferase 26 U/L (0-40); Blood Urea Nitrogen 23 mg/dL (8-23); Calcium 8.4 mg/dL (8.5-10.5); Carbon Dioxide 24 mmol/L (22-29); Chloride 100 mmol/L (98-107); Creatinine Clr Calc Pharmacy 67.8756; Glucose 138 mg/dL (65-115); Magnesium 1.8 mg/dL (1.7-2.3); Osmolality Calculated 290 mOsm/kg (285-295); Phosphorus 2.2 mg/dL (2.5-4.5); Potassium 3.5 mmol/L (3.5-5.1); Sodium 137 mmol/L (136-145); Total Bilirubin 0.5 mg/dL (0.15-1.2); Total Protein 6.1 g/dL (6.6-8.7)
[2024-07-05] MEDS: dextrose 5% + KCl 20 mEq 20 MEQ/1,000 ML BAG 50 MEQ IV (04:46)
--- NOTE | 2024-07-05 06:54 | PC.SOCIAL ---
IMM Update Pg. 2 of IMM updated, and copy provided at bedside.
[2024-07-05 07:20] LABS: Glucose Point of Care 102 mg/dL (70-110)
[2024-07-05] MEDS: pantoprazole 40 mg SDV IVP (09:29)
[2024-07-05] MEDS: methylPREDNISolone sod succ 40 mg/mL INJ IVP (09:30)
[2024-07-05] MEDS: cefepime 1,000 mg SDV 1000 MG IVP ×2 (09:30→20:52)
[2024-07-05] MEDS: enoxaparin 80 mg/0.8 mL Syringe SUBCUT ×2 (09:31→20:01)
[2024-07-05] MEDS: thiamine 100 mg Tablet PO (09:38)
[2024-07-05] MEDS: amlodipine 5 mg Tablet 10 MG PO (09:38)
[2024-07-05] MEDS: docusate sodium 100 mg Capsule PO ×2 (09:39→17:37)
[2024-07-05] MEDS: hyDRALAzine 10 mg Tablet PO ×4 (09:39→20:01)
[2024-07-05] MEDS: levETIRAcetam 1,000 mg/10 mL UDC 500 MG PO ×2 (09:39→17:37)
[2024-07-05 11:26] LABS: Glucose Point of Care 93 mg/dL (70-110)
--- NOTE | 2024-07-05 13:59 | P.PN_ITS ---
Subjective 2 Subjective: somnolent Medications: Reviewed: Yes Vitals/I&O/Wt Last Vital Signs Temp 98.0 F 07/05/24 11:16 Pulse 44 L 07/05/24 11:16 Resp 13 07/05/24 11:16 BP 142/71 07/05/24 11:16 Pulse Ox 99 07/05/24 11:16 O2 Del Method Nasal Cannula 07/05/24 11:16 O2 Flow Rate 3 07/05/24 07:45 FiO2 30 07/04/24 12:22 07/04/24 07/05/24 07/05/24 22:59 06:59 14:59 Intake Total 178.75 / 1392.50 970.417 / 2362.917 240 / 240 Output Total 2800 / 2800 500 / 3300 800 / 800 Balance -2621.25 / -1407.50 470.417 / -937.083 -560 / -560 Weight last 48 hrs Weight 81 kg Weight 81.4 kg Weight 81 kg Weight 81 kg Physical Exam 2 Narrative: in bed on NC VS noted heent- nca/t, eomi neck supple lungs clear heart regular abd soft, nt, nd, + bs ext 1+ankle/ feet edema neuro responsive, follows some simple commands Urinary Catheter Management: Chamorro: Cath Placed During This Visit: yes Reason for Continuing Indwelling Catheter: Accurate Measurement of Urinary Output in Critically Ill Patients Urinary Catheter Date of Insertion: 06/30/24 Data 07/05/24 03:10 07/05/24 03:10 Micro: Microbiology 06/30/24 13:00 Blood Culture - Final Blood NO GROWTH AFTER 5 DAYS 06/30/24 13:06 Blood Culture - Final Blood NO GROWTH AFTER 5 DAYS A&P Assessment and plan (1) Acute kidney injury: 74 yr old man 1. Emma - improving- pt has a 2.1 cm left renal mass, CT w/ decompressed urinary bladder- improving obstructive uropathy and prerenal azotemia- cr is improving, mental status remains poor -HE NEEDS UROLOGY CONSULTATION AND CONTRAST CT OF KIDNEY- CAN BE DONE AN OUTPT 2. Hypernatremia and post- EMMA/ obstructive diuresis- iimproved 3. replace k and mag as needed 4. Met acidosis improving- as hyperchloremia improve 5. htn- amlodipine 5 mg daily seen and examined using audio/ visual equipment with the aid of a RN Plan see above PDMP PDMP Reviewed: Not Reviewed Attestations 2 Medical Necessity Statement*: per joan Coding Level of Care Code Acute Code for [facility] Fwd Diagnoses Acute kidney injury N17.9
--- NOTE | 2024-07-05 14:20 | PM.PN ---
Subjective Subjective: Patient was transferred to [facility] yesterday. He is bradycardic this morning with heart rate ranging between 40-50. Lowest was noted to be at 42 overnight. Medications: Reviewed: Yes Medication Review Details: Current Medications Acetaminophen (Acetaminophen 325 Mg Tablet) 650 mg PO Q6H PRN PRN Reason: Mild/Mod Pain Or Temp >/= 101 Albuterol/Ipratropium (Ipratropium-Albuterol 3 Ml Neb) 3 ml INHALATION Q6H PRN PRN Reason: SHORTNESS OF BREATH Last Admin: 07/03/24 20:37 Dose: 3 ml Amiodarone HCl (Amiodarone 200 Mg Tablet) 400 mg PO BID [facility] Last Admin: 07/03/24 17:29 Dose: 400 mg Amlodipine Besylate (Amlodipine 5 Mg Tablet) 5 mg PO DAILY [facility] Last Admin: 07/03/24 10:47 Dose: Not Given Cefepime HCl (Cefepime 1,000 Mg Sdv) 1,000 mg IVP Q24H [facility]; Protocol Last Admin: 07/03/24 17:27 Dose: 1,000 mg Docusate Sodium (Docusate Sodium 100 Mg Capsule) 100 mg PO BID [facility] Last Admin: 07/03/24 17:29 Dose: 100 mg Enoxaparin Sodium (Enoxaparin 80 Mg/0.8 Ml Syringe) 80 mg SUBCUT Q12H [facility] Last Admin: 07/03/24 20:32 Dose: 80 mg Ergocalciferol (Ergocalciferol (Vitamin D2) 50,000 Unit Capsule) 50,000 unit PO Q7D [facility] Stop: 07/17/24 11:11 Last Admin: 07/03/24 10:47 Dose: Not Given Hydralazine HCl (Hydralazine 20 Mg/Ml Inj 1 Ml) 10 mg IVP Q4H PRN PRN Reason: HTN Last Admin: 07/03/24 03:15 Dose: 10 mg Sodium Chloride (Sodium Chloride 0.9%) 1,000 mls @ 0 mls/hr IV .Q0M PRN PRN Reason: hypotension or symptomatic Albumin Human (Albumin) 12.5 gm in 50 mls @ 60 mls/hr IV PRN PRN PRN Reason: Hypotension and/or symptomatic Potassium Chloride/Dextrose (Dextrose 5% + Kcl 20 Meq) 20 meq in 1,000 mls @ 75 mls/hr IV .[id number] [facility] Last Admin: 07/04/24 00:04 Dose: 75 mls/hr Potassium Chloride (K-Ortiz Premix) 100 mls @ 50 mls/hr IV ONCE [facility] Last Infusion: 07/03/24 13:24 Dose: Infused Lanolin (Lanolin Oint 7 Gm) 1 applic TOPICAL PRN PRN PRN Reason: DRYNESS Last Admin: 07/02/24 09:52 Dose: 1 applic Levetiracetam (Levetiracetam 1,000 Mg/10 Ml Udc) 500 mg PO BID [facility] Last Admin: 07/03/24 17:29 Dose: 500 mg Methylprednisolone Sodium Succinate (Methylprednisolone Sod Succ 40 Mg/Ml Inj) 40 mg IVP Q8H [facility] Last Admin: 07/04/24 02:07 Dose: 40 mg Morphine Sulfate (Morphine 4 Mg/Ml Sdv 1 Ml) 2 mg IVP Q4H PRN PRN Reason: MODERATE PAIN Last Admin: 07/03/24 03:18 Dose: 2 mg Ondansetron HCl (Ondansetron 2 Mg/Ml Sdv 2 Ml) 4 mg IVP Q8H PRN PRN Reason: vomiting, or N/V if npo Ondansetron HCl (Ondansetron 2 Mg/Ml Sdv 2 Ml) 4 mg IVP Q6H PRN PRN Reason: NAUSEA AND VOMITING Pantoprazole Sodium (Pantoprazole 40 Mg Sdv) 40 mg IVP DAILY [facility] Last Admin: 07/03/24 09:10 Dose: 40 mg Thiamine Mononitrate (Thiamine 100 Mg Tablet) 100 mg PO DAILY [facility] Last Admin: 07/03/24 10:47 Dose: Not Given Vitals/I&O/Wt Last Vital Signs Temp 98.0 F 07/05/24 11:16 Pulse 44 L 07/05/24 11:16 Resp 13 07/05/24 11:16 BP 142/71 07/05/24 11:16 Pulse Ox 99 07/05/24 11:16 O2 Del Method Nasal Cannula 07/05/24 11:16 O2 Flow Rate 3 07/05/24 07:45 FiO2 30 07/04/24 12:22 07/04/24 07/05/24 07/05/24 22:59 06:59 14:59 Intake Total 178.75 / 1392.50 970.417 / 2362.917 240 / 240 Output Total 2800 / 2800 500 / 3300 800 / 800 Balance -2621.25 / -1407.50 470.417 / -937.083 -560 / -560 Weight last 48 hrs Weight 81 kg Weight 81.4 kg Weight 81 kg Weight 81 kg Physical Exam Narrative: General: He is more lethargic today. Difficult to awaken. He does wake up and swallow some pills but then goes right back to sleep. Not able to consistently follow commands. HEENT: PERRLA, pupils bilaterally equal and reactive, pallors not present Chest: Normal vesicular breath sounds, no added sounds, equal good air entry bilaterally CVS: S1-S2 regular, no murmurs, no tachycardia, no gallops, no rubs Abdomen: Soft, nontender, no organomegaly, bowel sounds present Neuro: Unable to assess Urinary Catheter Management: Chamorro: Cath Placed During This Visit: yes Reason for Continuing Indwelling Catheter: Accurate Measurement of Urinary Output in Critically Ill Patients Urinary Catheter Date of Insertion: 06/30/24 Data 07/05/24 03:10 07/05/24 03:10 Micro: Microbiology 06/30/24 13:00 Blood Culture - Final Blood NO GROWTH AFTER 5 DAYS 06/30/24 13:06 Blood Culture - Final Blood NO GROWTH AFTER 5 DAYS A&P Assessment and plan (1) Uremic encephalopathy: (2) Acute kidney injury: (3) Acute dehydration: (4) Atrial fibrillation with RVR: (5) Hypertension: Qualifiers: Hypertension type: essential hypertension Qualified Code(s): I10 - Essential (primary) hypertension (6) Bladder outlet obstruction: (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: (8) Gait instability: (9) Altered mental status: (10) Major depression: Qualifiers: Major depression recurrence: recurrent Active/Remission status: currently active Major depression episode severity: moderate Qualified Code(s): F33.1 - Major depressive disorder, recurrent, moderate (11) Acute renal failure: (12) Leukocytosis: (13) Pneumonia: (14) Hypoxia: (15) Hypernatremia: (16) DVT (deep venous thrombosis): Plan #Uremic encephalopathy #Severe acute kidney injury most likely postrenal cause with component of prerenal cause #Atrial fibrillation with RVR #Recent influenza #History of dementia #History of hypertension #Hypotensive on arrival, responsive to fluid, does not meet sepsis criteria #Altered mental status most likely secondary to urinary encephalopathy with component of metabolic encephalopathy #Possible pneumonia #Cannot rule out aspiration #History of alcohol abuse #BPH, enlarged prostate #Dehydration ? Patient presents with severe dehydration. With severe NEW with BUN 140 creatinine 9.1 with recent flu and enlarged prostate with chronic bladder outlet obstruction most likely the cause of his NEW at this time. He did immediately have 2 L urine output upon insertion of Chamorro catheter. Will have to watch for polyuric phase. ? Patient is completely confused and encephalopathic most likely secondary to pneumonia however more so likely secondary to uremic encephalopathy due to BUN being 140. At baseline he is able to walk and talk as per skilled nursing. ? He was hypotensive on arrival however responded to fluid. Does not meet sepsis criteria at this time ? Will continue normal saline 125 cc/h at this point ? Have called general surgery for dialysis catheter placement. Patient may require urgent dialysis secondary to uremic encephalopathy as one of the indications. Discussed with nephrology as well. ? Will repeat BMP at this time. ? Patient is a full code as per previous records. No family present at bedside. ? He is currently in A-fib with RVR. Have started on an amiodarone drip. Will continue to do so at this time. Titrate as per protocol. ? Will check echocardiogram ? CT abdomen pelvis reviewed. Chronic outlet obstruction noted. No sign of pyelonephritis ported however perinephric stranding present. I will cover with cefepime at this time which will cover for pneumonia and possible urinary tract infection. ? N.p.o. at this time till seen by speech ? Low suspicion of stroke at this time however cannot be ruled out completely. Unable to do CTA head and neck secondary to severe NEW. CT head negative at time of admission. May consider MRI if mental status does not improve. Symptoms have been going on for last few days. He would be out of the window for any kind of tPA at this point. ? Continue to recheck labs every 6 hours. ? Continue thiamine folic acid ? Hold home losartan and any other nephrotoxic agents. ? Patient on Keppra at home. Will check Keppra levels however we will hold off on ordering any at this time secondary to severe NEW. Will continue to monitor patient. Will discuss with pharmacy to possibly renally dose. ? Continue Chamorro catheter for accurate output. Full code DVT prophylaxis: Heparin SQ twice daily 07/01/2024 Patient currently requiring 55 L high flow nasal cannula. Will continue to wean off oxygen as able Does have a left lower lobe pneumonia. Continue linezolid and cefepime at this time. Will check speech swallow evaluation Check MRSA nares ? Creatinine and BUN are starting to improve. Patient is more responsive today. Dialysis could not be performed last night secondary to acute hypotension requiring vasopressors. ? Vasopressors have been turned off this morning. Blood pressure is stable. ? Patient is rate controlled now. ? NEW: Slowly improving. ? Continue LR at 125 cc/h ? Hold nephrotoxic agents ? Patient did get 1 dose of Keppra last night. ? When placed on IV Keppra twice daily ? Check speech swallow evaluation and start diet when patient able to participate better. ? Sputum culture blood culture pending at this time. -Echo pending Discussed with family regarding goals of care. They would like CPR and intubation if required at this time. Patient to remain a full code. They are also okay with dialysis if needed. ? Will repeating labs at noon today. Await recommendations from nephrology. ? Patient has a known history of COVID few weeks ago and influenza 1 to 2 weeks ago as per family. I will check respiratory viral panel to rule out RSV. 07/02/2024 -Creatinine and BUN improving. Creatinine down to 1.8. 4 L urine output in last 24 hours. ? Venous Dopplers positive for nonocclusive thrombus in right common femoral vein. If no plan for dialysis going forward will remove femoral line. Placed on heparin drip at this time. D-dimer greater than 20. Patient is requiring high flow nasal cannula 55 to 60 L however saturations do improve after suctioning. He is having quite a bit of respiratory secretions that are thick. PE cannot be ruled out at this time. Continue heparin drip which will cover for that. When and if kidney function improves and creatinine normalizes consider CTA chest to rule out PE going forward. He does have a left lower lobe pneumonia however his hypoxia is out of proportion to pneumonia at this time. No evidence of ARDS on chest CT from this morning. There is also dependent atelectasis right lung base and small bilateral pleural effusions. ? Will check ABG ? Patient has remained off of vasopressors. ? Continue linezolid and cefepime at this time. Hold off on Vanco and Zosyn secondary to NEW. ? Respiratory viral panel negative at this time. ? Continue Keppra IV twice daily. ? Speech therapy evaluated patient however patient deemed unsafe to tolerate oral at this time. If there is no improvement by tomorrow we will consider PPN initiation. ? Echo reviewed. EF 65%, mild left ventricular hypertrophy no regional wall motion abnormalities grade 1 x 4 diastolic dysfunction. Patient does have bilateral lower extremity 1-2+ edema. ? Sodium 154. Patient is hypernatremic. Osmolality 335. He does have a free water deficit. Fluids have been switched from normal saline to half-normal saline at this time. ? Chloride 119, anion gap 19.5. Possible hyperchloremic metabolic acidosis. ? Continue Solu-Medrol 40 IV every 8 hours. Will order chest vest ? Patient still NPO. Will continue amiodarone drip at 0.5/h. Will recheck EKG. He does not have a known history of atrial fibrillation ? Overall mental status is improving. ? Family okay with intubation if needed. ? PT OT once able to participate. - Collect sputum - will talk to RN -Hypertension: Will place on hydralazine 10 every 4 hours as needed. Hold oral medications at this time due to n.p.o. status. DVT prophylaxis: Patient on heparin drip at this time GI prophylaxis: Protonix 40 IV daily Full code July 03, 2024 Chart reviewed. 74-year-old male admitted on 06/30 with AMS sent from [facility]. Recent h/o FLU , recent h/o hematuria needing Chamorro placement on arrival. New with Cr at 9. CT head negative. HD catheter placed 06/30, however eventually did not need to start dialysis.. He had h for which she has remained on amiodarone infusion. Ypernatremia and A fib RVR on admission. on 07/01 he was started on 2 pressors, which are currently weaned off.. Ct abdomen with enlarged prostate, likely chronic bladder outlet obstruction, 2.1 cm renal mass. We do not have urology services available inpatient, this will need further evaluation once he is discharged from the hospital. For now we will continue to maintain his Chamorro catheter and set up urology as outpatient. New now improving. Creatinine is improving to 1.2. Urine output 3.3 L. Hospital course also notable for hypoxic resp failure on HHF oxygen. Chest imaging shows left lower lobe pneumonia, however do not anticipate a small patch of pneumonia to be responsible for significant hypoxia is currently noted. DVT +. Presumably patient has a PE given discovery of DVT. Deferred CT with contrast due to NEW, recently recovered kidney function, no change in management with additional discovery of PE on top of DVT. Patient is on anticoagulation with heparin drip at this time. Will transition to Lovenox 1 mg/kg every 12 hours today since kidney function has recovered Closely monitor platelets. Currently down at 120 from 160 upon admission. Blood cx negative. UA negative. on cefepime and linezolid empirically check MRSA nasal screen. If negative discontinue linezolid. RVP negative. Afebrile.? Patient is continuing to be encephalopathic. This may be related to toxic metabolic encephalopathy from acute events as described above. CT of the head was negative for stroke upon admission. Per skilled nursing report patient is typically ambulatory at baseline. Able to have a full conversation. No known swallowing issues. Will order PT OT evaluation. Speech therapy evaluation appreciated. If continues to remain persistently encephalopathic, will obtain MRI of the head. 07/04/24: Bradycardic today, HR ranging ~55, reduce amiodarone to 400mg daily at this time. BP 170 systolic this am, increase amlodipine to 10mg daily, hydralazine added earlier today by nephrology. MRI head without signs of acute stroke. Patient participated with PT today- noted to be mod to max assist, unable to ambulate at this time. Likely severe deconditioining is related to acute critical illness. NEW remains resolved, good urine output, previously placed HD cath removed on 07/02. Noted leukocytosis today ? cause. CXR with unchanged infiltrate, check UA. May be related to high dose steroids, reduce methylpred to 40mg daily from q8h today and reassess. No fever. No other localizing signs of infection at this time. Will plan to complete 5-7 day course of cefepime for pneumonia. Hypernatremia improving today , patient developing LE swelling, reduce IVF rate to 50 cc/hr Transfer out of ICU to [facility] today July 05, 2024 Bradycardia with heart rate ranging 40-50. Amiodarone on hold today. Blood pressure is better controlled. Patient is more lethargic today. Review of chart shows he received morphine last at 2 AM. Will hold all opiates going forward. Trial of Narcan and see if patient's mentation improves. MRI of the brain was negative for any acute intracranial events. Leukocytosis stable at 14,000. Chest x-ray without any increased consolidation. Per personal review no infiltrates noted. Patient has been afebrile and hemodynamically stable. May be related to high-dose steroid use. He is currently on cefepime coverage. Plan to complete a 7-day course. Discontinue steroids today and closely monitor. PDMP PDMP Reviewed: Not Reviewed Attestations Medical Necessity Statement*: bradycardia, AMS, trial of narcan as above Coding Level of Care Code Acute Code for [facility] Fwd Diagnoses Uremic encephalopathy G93.49; N19 Acute kidney injury N17.9 Acute dehydration E86.0 Atrial fibrillation with RVR I48.91 Essential hypertension I10 Hypertension type: essential hypertension Bladder outlet obstruction N32.0 Dementia associated with alcoholism with behavioral disturbance F10.27 Gait instability R26.81 Altered mental status R41.82 Moderate episode of recurrent major depressive disorder F33.1 Major depression recurrence: recurrent Active/Remission status: currently active Major depression episode severity: moderate Acute renal failure N17.9 Leukocytosis D72.829 Pneumonia J18.9 Hypoxia R09.02 Hypernatremia E87.0 DVT (deep venous thrombosis) I82.409
[2024-07-05] MEDS: naloxone 0.4 mg/ml SDV 0.1 MG IVP (14:38)
[2024-07-05 16:08] LABS: Glucose Point of Care 118 mg/dL (70-110)
[2024-07-05] MEDS: acetaminophen 325 mg Tablet 650 MG PO (20:01)
[2024-07-05 20:20] LABS: Glucose Point of Care 138 mg/dL (70-110)
[2024-07-05] MEDS: TRAMadol 50 mg Tablet 25 MG PO (21:57)
[2024-07-06] VITALS (9 sets, daily range): BP systolic 104–138; BP diastolic 59–79; PULSE 48–73; RESP 14–91; TEMP 36.3–37.1; O2SAT 93–98
[2024-07-06 01:50] LABS: PROTEIN, TOTAL 6.7 g/dL (6.1-8.1)
[2024-07-06 04:23] LABS: Basophils % 0.1 %; Hematocrit 40.6 % (37-53); Lymphocytes # 2.1 10^3/uL (0.8-4.8); Lymphocytes % 14.9 %; Mean Corpuscular HGB Conc 32.8 g/dL (30-55); Mean Corpuscular Hemoglobin 29.5 pg (27-33); Mean Platelet Volume 11.3 fL (7.4-10.4); Monocytes % 6.7 %; Neutrophils # 10.88 10^3/uL (1.8-7.7); Neutrophils % 75.5 %; Nucleated Red Blood Cells % 0.1 %; Platelet Count 198 10^3/cmm (157-399); Red Blood Count 4.51 10^6/uL (3.85-5.65); Red Cell Distribution Width 12.2 % (12.1-15.1)
[2024-07-06 04:43] LABS: Alanine Aminotransferase 32 U/L (0-41); Albumin Level 3.2 g/dL (3.5-5.2); Alkaline Phosphatase 75 U/L (40-130); Anion Gap 15.7 (5-19); Aspartate Amino Transferase 27 U/L (0-40); Blood Urea Nitrogen 27 mg/dL (8-23); Calcium 8.5 mg/dL (8.5-10.5); Carbon Dioxide 25 mmol/L (22-29); Chloride 100 mmol/L (98-107); Creatinine Clr Calc Pharmacy 67.7333; Glucose 98 mg/dL (65-115); Osmolality Calculated 289 mOsm/kg (285-295); Potassium 3.7 mmol/L (3.5-5.1); Sodium 137 mmol/L (136-145); Total Bilirubin 0.6 mg/dL (0.15-1.2); Total Protein 6.2 g/dL (6.6-8.7)
[2024-07-06 06:37] LABS: Glucose Point of Care 83 mg/dL (70-110)
[2024-07-06] MEDS: pantoprazole 40 mg SDV IVP (08:57)
[2024-07-06] MEDS: cefepime 1,000 mg SDV 1000 MG IVP (08:57)
[2024-07-06] MEDS: enoxaparin 80 mg/0.8 mL Syringe SUBCUT ×2 (08:57→20:06)
[2024-07-06] MEDS: levETIRAcetam 1,000 mg/10 mL UDC 500 MG PO ×2 (08:57→18:08)
[2024-07-06] MEDS: docusate sodium 100 mg Capsule PO ×2 (08:58→18:08)
[2024-07-06] MEDS: amlodipine 5 mg Tablet 10 MG PO (08:58)
[2024-07-06] MEDS: thiamine 100 mg Tablet PO (08:58)
[2024-07-06] MEDS: hyDRALAzine 10 mg Tablet PO (08:58)
[2024-07-06] MEDS: ipratropium-albuterol 3 mL Neb INHALATION (09:13)
[2024-07-06 09:20] LABS: ABNORMAL PROTEIN BAND 1 1.1 g/dL (NONE DETECTED); ALPHA 1 GLOBULIN 0.5 g/dL (0.2-0.3); ALPHA 2 GLOBULIN 1.1 g/dL (0.5-0.9); BETA 1 GLOBULIN 0.3 g/dL (0.4-0.6); BETA 2 GLOBULIN 0.4 g/dL (0.2-0.5); GAMMA GLOBULIN 1.4 g/dL (0.8-1.7)
[2024-07-06 11:58] LABS: Glucose Point of Care 98 mg/dL (70-110)
--- NOTE | 2024-07-06 13:06 | P.PN_ITS ---
Subjective 2 Subjective: no new complaints Medications: Reviewed: Yes Vitals/I&O/Wt Last Vital Signs Temp 98.7 F 07/06/24 11:31 Pulse 69 07/06/24 11:31 Resp 91 H 07/06/24 11:31 BP 104/63 07/06/24 11:31 Pulse Ox 96 07/06/24 11:31 O2 Del Method Room Air 07/06/24 11:31 O2 Flow Rate 2 07/06/24 09:18 FiO2 30 07/04/24 12:22 07/05/24 07/06/24 07/06/24 22:59 06:59 14:59 Intake Total 120 / 360 900 / 1260 360 / 360 Output Total 450 / 1250 200 / 1450 Balance -330 / -890 700 / -190 360 / 360 Weight last 48 hrs Weight 80.513 kg Weight 81 kg Weight 81.4 kg Physical Exam 2 Narrative: in bed on NC VS noted heent- nca/t, eomi neck supple lungs clear heart regular abd soft, nt, nd, + bs ext 1+ankle/ feet edema Urinary Catheter Management: Chamorro: Cath Placed During This Visit: yes Reason for Continuing Indwelling Catheter: Accurate Measurement of Urinary Output in Critically Ill Patients Urinary Catheter Date of Insertion: 06/30/24 Data 07/06/24 03:48 07/06/24 03:48 Micro: Microbiology 06/30/24 13:00 Blood Culture - Final Blood NO GROWTH AFTER 5 DAYS 06/30/24 13:06 Blood Culture - Final Blood NO GROWTH AFTER 5 DAYS A&P Assessment and plan (1) Acute kidney injury: 74 yr old man 1. Emma - improving- pt has a 2.1 cm left renal mass, CT w/ decompressed urinary bladder- improving obstructive uropathy and prerenal azotemia- cr is improving, s/p IVFs , Encourage Po intake -HE NEEDS UROLOGY CONSULTATION AND CONTRAST CT OF KIDNEY- CAN BE DONE AN OUTPT 2. Hypernatremia and post- EMMA/ obstructive diuresis- improved 3. replace k and mag as needed 4. Met acidosis improved as hyperchloremia improved 5. htn- amlodipine 10 mg daily 6.Bradycardia , will DC hydralazine , Amiodarone dose decreased seen and examined using audio/ visual equipment with the aid of a RN Plan see above PDMP PDMP Reviewed: Not Reviewed Attestations 2 Medical Necessity Statement*: per joan Coding Level of Care Code Acute Code for Chg Fwd Diagnoses Acute kidney injury N17.9
--- NOTE | 2024-07-06 14:50 | PM.PN ---
Subjective Subjective: Patient is more alert and awake today since discontinuing morphine. Overnight he received a dose of tramadol. He is able to correctly tell me his name, age, able to have a short conversation. States he is having some pain over his buttocks. States breathing is improving. He is currently on 2 L/min supplemental O2. Medications: Reviewed: Yes Medication Review Details: Current Medications Acetaminophen (Acetaminophen 325 Mg Tablet) 650 mg PO Q6H PRN PRN Reason: Mild/Mod Pain Or Temp >/= 101 Albuterol/Ipratropium (Ipratropium-Albuterol 3 Ml Neb) 3 ml INHALATION Q6H PRN PRN Reason: SHORTNESS OF BREATH Last Admin: 07/03/24 20:37 Dose: 3 ml Amiodarone HCl (Amiodarone 200 Mg Tablet) 400 mg PO BID [facility] Last Admin: 07/03/24 17:29 Dose: 400 mg Amlodipine Besylate (Amlodipine 5 Mg Tablet) 5 mg PO DAILY [facility] Last Admin: 07/03/24 10:47 Dose: Not Given Cefepime HCl (Cefepime 1,000 Mg Sdv) 1,000 mg IVP Q24H [facility]; Protocol Last Admin: 07/03/24 17:27 Dose: 1,000 mg Docusate Sodium (Docusate Sodium 100 Mg Capsule) 100 mg PO BID [facility] Last Admin: 07/03/24 17:29 Dose: 100 mg Enoxaparin Sodium (Enoxaparin 80 Mg/0.8 Ml Syringe) 80 mg SUBCUT Q12H [facility] Last Admin: 07/03/24 20:32 Dose: 80 mg Ergocalciferol (Ergocalciferol (Vitamin D2) 50,000 Unit Capsule) 50,000 unit PO Q7D [facility] Stop: 07/17/24 11:11 Last Admin: 07/03/24 10:47 Dose: Not Given Hydralazine HCl (Hydralazine 20 Mg/Ml Inj 1 Ml) 10 mg IVP Q4H PRN PRN Reason: HTN Last Admin: 07/03/24 03:15 Dose: 10 mg Sodium Chloride (Sodium Chloride 0.9%) 1,000 mls @ 0 mls/hr IV .Q0M PRN PRN Reason: hypotension or symptomatic Albumin Human (Albumin) 12.5 gm in 50 mls @ 60 mls/hr IV PRN PRN PRN Reason: Hypotension and/or symptomatic Potassium Chloride/Dextrose (Dextrose 5% + Kcl 20 Meq) 20 meq in 1,000 mls @ 75 mls/hr IV .[id number] [facility] Last Admin: 07/04/24 00:04 Dose: 75 mls/hr Potassium Chloride (K-Ortiz Premix) 100 mls @ 50 mls/hr IV ONCE [facility] Last Infusion: 07/03/24 13:24 Dose: Infused Lanolin (Lanolin Oint 7 Gm) 1 applic TOPICAL PRN PRN PRN Reason: DRYNESS Last Admin: 07/02/24 09:52 Dose: 1 applic Levetiracetam (Levetiracetam 1,000 Mg/10 Ml Udc) 500 mg PO BID [facility] Last Admin: 07/03/24 17:29 Dose: 500 mg Methylprednisolone Sodium Succinate (Methylprednisolone Sod Succ 40 Mg/Ml Inj) 40 mg IVP Q8H [facility] Last Admin: 07/04/24 02:07 Dose: 40 mg Morphine Sulfate (Morphine 4 Mg/Ml Sdv 1 Ml) 2 mg IVP Q4H PRN PRN Reason: MODERATE PAIN Last Admin: 07/03/24 03:18 Dose: 2 mg Ondansetron HCl (Ondansetron 2 Mg/Ml Sdv 2 Ml) 4 mg IVP Q8H PRN PRN Reason: vomiting, or N/V if npo Ondansetron HCl (Ondansetron 2 Mg/Ml Sdv 2 Ml) 4 mg IVP Q6H PRN PRN Reason: NAUSEA AND VOMITING Pantoprazole Sodium (Pantoprazole 40 Mg Sdv) 40 mg IVP DAILY [facility] Last Admin: 07/03/24 09:10 Dose: 40 mg Thiamine Mononitrate (Thiamine 100 Mg Tablet) 100 mg PO DAILY [facility] Last Admin: 07/03/24 10:47 Dose: Not Given Vitals/I&O/Wt Last Vital Signs Temp 98.7 F 07/06/24 11:31 Pulse 69 07/06/24 11:31 Resp 91 H 07/06/24 11:31 BP 104/63 07/06/24 11:31 Pulse Ox 96 07/06/24 11:31 O2 Del Method Room Air 07/06/24 11:31 O2 Flow Rate 2 07/06/24 09:18 FiO2 30 07/04/24 12:22 07/05/24 07/06/24 07/06/24 22:59 06:59 14:59 Intake Total 120 / 360 900 / 1260 360 / 360 Output Total 450 / 1250 200 / 1450 Balance -330 / -890 700 / -190 360 / 360 Weight last 48 hrs Weight 80.513 kg Weight 81 kg Weight 81.4 kg Physical Exam Narrative: General: More awake and alert today. Tolerating oral intake. Was able to finish his breakfast today. HEENT: PERRLA, pupils bilaterally equal and reactive, pallors not present Chest: Normal vesicular breath sounds, no added sounds, equal good air entry bilaterally CVS: S1-S2 regular, no murmurs, no tachycardia, no gallops, no rubs Abdomen: Soft, nontender, no organomegaly, bowel sounds present Neuro: awake, alert, slow in conversation but more alert compared to yesterday Urinary Catheter Management: Chamorro: Cath Placed During This Visit: yes Reason for Continuing Indwelling Catheter: Accurate Measurement of Urinary Output in Critically Ill Patients Urinary Catheter Date of Insertion: 06/30/24 Data 07/06/24 03:48 07/06/24 03:48 Micro: Microbiology 06/30/24 13:00 Blood Culture - Final Blood NO GROWTH AFTER 5 DAYS 06/30/24 13:06 Blood Culture - Final Blood NO GROWTH AFTER 5 DAYS A&P Assessment and plan (1) Uremic encephalopathy: (2) Acute kidney injury: (3) Acute dehydration: (4) Atrial fibrillation with RVR: (5) Hypertension: Qualifiers: Hypertension type: essential hypertension Qualified Code(s): I10 - Essential (primary) hypertension (6) Bladder outlet obstruction: (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: (8) Gait instability: (9) Altered mental status: (10) Major depression: Qualifiers: Major depression recurrence: recurrent Active/Remission status: currently active Major depression episode severity: moderate Qualified Code(s): F33.1 - Major depressive disorder, recurrent, moderate (11) Acute renal failure: (12) Leukocytosis: (13) Pneumonia: (14) Hypoxia: (15) Hypernatremia: (16) DVT (deep venous thrombosis): Plan #Uremic encephalopathy #Severe acute kidney injury most likely postrenal cause with component of prerenal cause #Atrial fibrillation with RVR #Recent influenza #History of dementia #History of hypertension #Hypotensive on arrival, responsive to fluid, does not meet sepsis criteria #Altered mental status most likely secondary to urinary encephalopathy with component of metabolic encephalopathy #Possible pneumonia #Cannot rule out aspiration #History of alcohol abuse #BPH, enlarged prostate #Dehydration ? Patient presents with severe dehydration. With severe NEW with BUN 140 creatinine 9.1 with recent flu and enlarged prostate with chronic bladder outlet obstruction most likely the cause of his NEW at this time. He did immediately have 2 L urine output upon insertion of Chamorro catheter. Will have to watch for polyuric phase. ? Patient is completely confused and encephalopathic most likely secondary to pneumonia however more so likely secondary to uremic encephalopathy due to BUN being 140. At baseline he is able to walk and talk as per assisted. ? He was hypotensive on arrival however responded to fluid. Does not meet sepsis criteria at this time ? Will continue normal saline 125 cc/h at this point ? Have called general surgery for dialysis catheter placement. Patient may require urgent dialysis secondary to uremic encephalopathy as one of the indications. Discussed with nephrology as well. ? Will repeat BMP at this time. ? Patient is a full code as per previous records. No family present at bedside. ? He is currently in A-fib with RVR. Have started on an amiodarone drip. Will continue to do so at this time. Titrate as per protocol. ? Will check echocardiogram ? CT abdomen pelvis reviewed. Chronic outlet obstruction noted. No sign of pyelonephritis ported however perinephric stranding present. I will cover with cefepime at this time which will cover for pneumonia and possible urinary tract infection. ? N.p.o. at this time till seen by speech ? Low suspicion of stroke at this time however cannot be ruled out completely. Unable to do CTA head and neck secondary to severe NEW. CT head negative at time of admission. May consider MRI if mental status does not improve. Symptoms have been going on for last few days. He would be out of the window for any kind of tPA at this point. ? Continue to recheck labs every 6 hours. ? Continue thiamine folic acid ? Hold home losartan and any other nephrotoxic agents. ? Patient on Keppra at home. Will check Keppra levels however we will hold off on ordering any at this time secondary to severe NEW. Will continue to monitor patient. Will discuss with pharmacy to possibly renally dose. ? Continue Chamorro catheter for accurate output. Full code DVT prophylaxis: Heparin SQ twice daily 07/01/2024 Patient currently requiring 55 L high flow nasal cannula. Will continue to wean off oxygen as able Does have a left lower lobe pneumonia. Continue linezolid and cefepime at this time. Will check speech swallow evaluation Check MRSA nares ? Creatinine and BUN are starting to improve. Patient is more responsive today. Dialysis could not be performed last night secondary to acute hypotension requiring vasopressors. ? Vasopressors have been turned off this morning. Blood pressure is stable. ? Patient is rate controlled now. ? NEW: Slowly improving. ? Continue LR at 125 cc/h ? Hold nephrotoxic agents ? Patient did get 1 dose of Keppra last night. ? When placed on IV Keppra twice daily ? Check speech swallow evaluation and start diet when patient able to participate better. ? Sputum culture blood culture pending at this time. -Echo pending Discussed with family regarding goals of care. They would like CPR and intubation if required at this time. Patient to remain a full code. They are also okay with dialysis if needed. ? Will repeating labs at noon today. Await recommendations from nephrology. ? Patient has a known history of COVID few weeks ago and influenza 1 to 2 weeks ago as per family. I will check respiratory viral panel to rule out RSV. 07/02/2024 -Creatinine and BUN improving. Creatinine down to 1.8. 4 L urine output in last 24 hours. ? Venous Dopplers positive for nonocclusive thrombus in right common femoral vein. If no plan for dialysis going forward will remove femoral line. Placed on heparin drip at this time. D-dimer greater than 20. Patient is requiring high flow nasal cannula 55 to 60 L however saturations do improve after suctioning. He is having quite a bit of respiratory secretions that are thick. PE cannot be ruled out at this time. Continue heparin drip which will cover for that. When and if kidney function improves and creatinine normalizes consider CTA chest to rule out PE going forward. He does have a left lower lobe pneumonia however his hypoxia is out of proportion to pneumonia at this time. No evidence of ARDS on chest CT from this morning. There is also dependent atelectasis right lung base and small bilateral pleural effusions. ? Will check ABG ? Patient has remained off of vasopressors. ? Continue linezolid and cefepime at this time. Hold off on Vanco and Zosyn secondary to NEW. ? Respiratory viral panel negative at this time. ? Continue Keppra IV twice daily. ? Speech therapy evaluated patient however patient deemed unsafe to tolerate oral at this time. If there is no improvement by tomorrow we will consider PPN initiation. ? Echo reviewed. EF 65%, mild left ventricular hypertrophy no regional wall motion abnormalities grade 1 x 4 diastolic dysfunction. Patient does have bilateral lower extremity 1-2+ edema. ? Sodium 154. Patient is hypernatremic. Osmolality 335. He does have a free water deficit. Fluids have been switched from normal saline to half-normal saline at this time. ? Chloride 119, anion gap 19.5. Possible hyperchloremic metabolic acidosis. ? Continue Solu-Medrol 40 IV every 8 hours. Will order chest vest ? Patient still NPO. Will continue amiodarone drip at 0.5/h. Will recheck EKG. He does not have a known history of atrial fibrillation ? Overall mental status is improving. ? Family okay with intubation if needed. ? PT OT once able to participate. - Collect sputum - will talk to RN -Hypertension: Will place on hydralazine 10 every 4 hours as needed. Hold oral medications at this time due to n.p.o. status. DVT prophylaxis: Patient on heparin drip at this time GI prophylaxis: Protonix 40 IV daily Full code July 03, 2024 Chart reviewed. 74-year-old male admitted on 06/30 with AMS sent from [place]. Recent h/o FLU , recent h/o hematuria needing Chamorro placement on arrival. New with Cr at 9. CT head negative. HD catheter placed 06/30, however eventually did not need to start dialysis.. He had h for which she has remained on amiodarone infusion. Ypernatremia and A fib RVR on admission. on 07/01 he was started on 2 pressors, which are currently weaned off.. Ct abdomen with enlarged prostate, likely chronic bladder outlet obstruction, 2.1 cm renal mass. We do not have urology services available inpatient, this will need further evaluation once he is discharged from the hospital. For now we will continue to maintain his Chamorro catheter and set up urology as outpatient. New now improving. Creatinine is improving to 1.2. Urine output 3.3 L. Hospital course also notable for hypoxic resp failure on HHF oxygen. Chest imaging shows left lower lobe pneumonia, however do not anticipate a small patch of pneumonia to be responsible for significant hypoxia is currently noted. DVT +. Presumably patient has a PE given discovery of DVT. Deferred CT with contrast due to NEW, recently recovered kidney function, no change in management with additional discovery of PE on top of DVT. Patient is on anticoagulation with heparin drip at this time. Will transition to Lovenox 1 mg/kg every 12 hours today since kidney function has recovered Closely monitor platelets. Currently down at 120 from 160 upon admission. Blood cx negative. UA negative. on cefepime and linezolid empirically check MRSA nasal screen. If negative discontinue linezolid. RVP negative. Afebrile.? Patient is continuing to be encephalopathic. This may be related to toxic metabolic encephalopathy from acute events as described above. CT of the head was negative for stroke upon admission. Per assisted report patient is typically ambulatory at baseline. Able to have a full conversation. No known swallowing issues. Will order PT OT evaluation. Speech therapy evaluation appreciated. If continues to remain persistently encephalopathic, will obtain MRI of the head. 07/04/24: Bradycardic today, HR ranging ~55, reduce amiodarone to 400mg daily at this time. BP 170 systolic this am, increase amlodipine to 10mg daily, hydralazine added earlier today by nephrology. MRI head without signs of acute stroke. Patient participated with PT today- noted to be mod to max assist, unable to ambulate at this time. Likely severe deconditioining is related to acute critical illness. NEW remains resolved, good urine output, previously placed HD cath removed on 07/02. Noted leukocytosis today ? cause. CXR with unchanged infiltrate, check UA. May be related to high dose steroids, reduce methylpred to 40mg daily from q8h today and reassess. No fever. No other localizing signs of infection at this time. Will plan to complete 5-7 day course of cefepime for pneumonia. Hypernatremia improving today , patient developing LE swelling, reduce IVF rate to 50 cc/hr Transfer out of ICU to [facility] today July 05, 2024 Bradycardia with heart rate ranging 40-50. Amiodarone on hold today. Blood pressure is better controlled. Patient is more lethargic today. Review of chart shows he received morphine last at 2 AM. Will hold all opiates going forward. Trial of Narcan and see if patient's mentation improves. MRI of the brain was negative for any acute intracranial events. Leukocytosis stable at 14,000. Chest x-ray without any increased consolidation. Per personal review no infiltrates noted. Patient has been afebrile and hemodynamically stable. May be related to high-dose steroid use. He is currently on cefepime coverage. Plan to complete a 7-day course. Discontinue steroids today and closely monitor. July 06, 2024. Bradycardia is improving today, heart rate is mostly in the 60s. At the time of this assessment heart rate at 69 bpm. Continue to hold amiodarone again today. Patient is more awake and alert today. Pain is currently controlled with tramadol. Would not use opiates for now. Leukocytosis remains stable at 14,000. He is afebrile. Discontinue cefepime as he has completed a 7-day course for pneumonia. Creatinine remained stable. Hypernatremia resolved with sodium at 137. Overall patient's acute issues are improving. He remains severely deconditioned as a result of his acute critical illness. Encourage continued participation with PT OT. PDMP PDMP Reviewed: Not Reviewed Attestations Medical Necessity Statement*: Acute issues are currently resolving. If heart rate remains controlled, patient may be able to discharge in the upcoming 24 to 48 hours for continued rehab back at long term facility. Coding Level of Care Code Acute Code for [facility] Fwd Diagnoses Uremic encephalopathy G93.49; N19 Acute kidney injury N17.9 Acute dehydration E86.0 Atrial fibrillation with RVR I48.91 Essential hypertension I10 Hypertension type: essential hypertension Bladder outlet obstruction N32.0 Dementia associated with alcoholism with behavioral disturbance F10.27 Gait instability R26.81 Altered mental status R41.82 Moderate episode of recurrent major depressive disorder F33.1 Major depression recurrence: recurrent Active/Remission status: currently active Major depression episode severity: moderate Acute renal failure N17.9 Leukocytosis D72.829 Pneumonia J18.9 Hypoxia R09.02 Hypernatremia E87.0 DVT (deep venous thrombosis) I82.409
[2024-07-06] MEDS: TRAMadol 50 mg Tablet PO (15:14)
[2024-07-06 16:27] LABS: Glucose Point of Care 98 mg/dL (70-110)
[2024-07-06 20:48] LABS: Glucose Point of Care 117 mg/dL (70-110)
[2024-07-07] VITALS (13 sets, daily range): BP systolic 77–129; BP diastolic 48–72; PULSE 82–122; RESP 18–31; TEMP 36.1–36.6; O2SAT 84–98
[2024-07-07] MEDS: sodium chloride 0.9% 1,000 ML 999 ML IV (06:04)
--- NOTE | 2024-07-07 06:05 | PC.NURSE ---
Patient became hypotensive at approximately 0500. Patient placed in trendelenburg and hospitalist notified. Given orders for 500ml Bolus of NS. Pressure improved with Bolus, notified hospitalist of improvement. Given order for another 500ml Bolus of NS.
[2024-07-07 06:42] LABS: Glucose Point of Care 246 mg/dL (70-110)
[2024-07-07 07:47] LABS: SARS Covid-2 Antigen Negative (Negative)
[2024-07-07] MEDS: haloperidol inj 5 mg/mL INJ 1 mL 2 MG IM (08:39)
[2024-07-07] MEDS: norepinephrine 4 MG/250 ML BAG IV (08:48)
[2024-07-07 09:02] LABS: Basophils % 0.1 %; Hematocrit 26.4 % (37-53); Lymphocytes # 1.6 10^3/uL (0.8-4.8); Lymphocytes % 7.5 %; Mean Corpuscular HGB Conc 34.5 g/dL (30-55); Mean Corpuscular Volume 89.8 fl (82-101); Mean Platelet Volume 11.7 fL (7.4-10.4); Monocytes # 1.2 10^3/uL (0.2-0.9); Monocytes % 5.5 %; Neutrophils # 18.09 10^3/uL (1.8-7.7); Neutrophils % 84.5 %; Nucleated Red Blood Cells % 0.1 %; Platelet Count 218 10^3/cmm (157-399); Red Blood Count 2.94 10^6/uL (3.85-5.65); Red Cell Distribution Width 12.5 % (12.1-15.1); White Blood Count 21.42 10^3/uL (3.29-11.43)
[2024-07-07 09:07] LABS: Glucose Point of Care 238 mg/dL (70-110)
[2024-07-07 09:07] LABS: ABG PCO2 28.8 mmHg (35-45); ABG PH Result 7.48 (7.35-7.45); Alveolar-Arterial Oxygen Gradi 17.7 mmHg (5-10); Arterial Blood Gas Hematocrit 28.6 % (42-52); Base Excess ABG -1.7 mmol/L (-2.0-2.0); Blood Gas Allen Test Pos; Blood Gas Operator Identificat CAK; Blood Gas Sample Site Radial, left; Blood Gas Sample Type Arterial; HCO3 ABG 21.3 mmol/L (22-26); HGB O2 Sat 91.2 % (95-100); Ionized Calcium Level - ABG 1.2 mmol/L (1.1-1.4); Methemoglobin 0.9 % (0.4-1.5); Oxygen Device NC; PO2 ABG 60.7 mmHg (80.0-100.0); PO2 FiO2 Ratio Arterial Blood 189; Potassium Level - ABG 3.5 mmol/L (3.5-5.0); Total Hemoglobin 9.3 g/dL (14-18)
--- NOTE | 2024-07-07 09:07 | CT_ITS ---
WS: [id number] CT HEAD NONCONTRAST HISTORY: low bp TECHNIQUE: Contiguous axial imaging performed through the brain. Bone and soft tissue windows. Sagittal and coronal reformats reviewed. All CT scans at [facility] use at least one of these dose optimization techniques: automated exposure control; mA and/or kV adjustment per patient size (includes targeted exams where dose is matched to clinical indication); or iterative reconstruction. DLP: 1155.11 mGy.cm COMPARISON: 06/30/2024 No acute intracranial hemorrhage, midline shift or mass effect. Moderate atrophy and small vessel disease. Volume loss in the hippocampal formations. Increased CSF surrounding the hippocampi. Ventricles: Mildly prominent ventricles on the basis of central and peripheral atrophy. Paranasal sinuses: Motion artifact obscuring detail through the sinuses and bony structures of the face. There is mild mucoperiosteal thickening in the RIGHT maxillary sinus. Mastoid air cells: Well pneumatized. Calvarium and scalp: Skull is intact with no soft tissue edema or swelling. CT/CT head wo con* [id number] IMPRESSION: 1. Stable noncontrast head CT. 2. Moderate cerebral and cerebellar atrophy and small vessel disease. No acute interval change since 06/30/2024.
--- NOTE | 2024-07-07 09:09 | CT_ITS ---
WS: [id number] CT CHEST, ABDOMEN AND PELVIS NONCONTRAST HISTORY: low bp TECHNIQUE: Contiguous 5 mm axial imaging performed through the chest, abdomen and pelvis without IV contrast, oral contrast has not been provided. Coronal and sagittal reformats chest. Coronal and sagittal reformats through the abdomen and pelvis. All CT scans at [facility] use at least one of these dose optimization techniques: automated exposure control; mA and/or kV adjustment per patient size (includes targeted exams where dose is matched to clinical indication); or iterative reconstruction. CONTRAST: None DLP: 979.01 mGy.cm COMPARISON: Chest CT 07/02/2024, CT abdomen and pelvis 06/30/2024 Extensive artifact through the chest and abdomen due to patient's arms and overlying monitoring leads. Chest CT: Hyperinflated lungs. Breathing motion artifact. Very small LEFT pleural effusion with LEFT basilar atelectasis. Improved aeration since 07/02/2024. No new consolidation or mass. No pneumonia. Mild cardiomegaly. Small pericardial effusion with coronary artery calcifications. Mildly ectatic thor acic aorta. Normal size pulmonary artery. No adenopathy identified. Small hiatal hernia. Abdomen CT: New bilateral retroperitoneal fluid collections within the psoas and iliacus muscles. The largest on the LEFT extends over a length of at least 15.5 cm. The RIGHT collection extends over a length of 13.0 cm. There is surrounding retroperitoneal fat stranding. Collections are causing mass effect upon the iliacus and psoas muscles and displacement of the ureters medially. There is additional presacral collection which was not present on the prior study. No interval change in appearance of the liver and spleen. Cholelithiasis without acute cholecystitis. LEFT adrenal adenoma 2.2 cm. No renal obstruction. Mixed attenuation masses involving the kidneys cannot be further characterized. Moderate calcification aorta. There is also additional soft tissue stranding in the retroperitoneum is probably related to the retroperitoneal hemorrhage. No displacement of aortic calcification or suspicion for aortic injury. No GI tract obstruction. No free air. Subcutaneous air along the abdominal wall from prior injection sites. Pelvic CT: Patent bilateral inguinal canals. The soft tissue attenuation from the retroperitoneum extends into the inguinal canals, LEFT greater than RIGHT. Chamorro catheter in a nondistended bladder. Increase in thoracic kyphosis. No destructive bone lesions. CT/[place] [id number] IMPRESSION: 1. Interval development of large bilateral retroperitoneal fluid collections w ith layering most consistent with retroperitoneal hematomas. Hematomas involve the psoas and iliacus muscles with additional retroperitoneal fat stranding an d displacement of the ureters due to their large size. Differential would inclu de abscesses but thought less likely due to their appearance since 06/30/2024. 2. LEFT retroperitoneal collection measures 15.5 cm in length and the RIGHT 13 .0 cm in length. 3. Patent bilateral inguinal canals with a small amount of the retroperitoneal hematoma extending into the LEFT inguinal canal. 4. Increased soft tissue in the presacral space is probably also related to th e blood products. 5. Very small LEFT pleural effusion and LEFT basilar atelectasis with improvem ent since 07/02/2024. 6. Chamorro catheter in the urinary bladder. Notified Keily Cleveland MD at 07/07/2024 9:58 AM.
--- NOTE | 2024-07-07 09:11 | PC.NURSE ---
upon examination..pt confused,combative...would not let information technology intern take bp.when finally able to obtain bp manually..bp 60/40...bp obtained in rle...86/51.hr 90 nsr..and o2 sat 98%.dr carreno notified.ordered haldol 2 mg im and levophed drip at 3 mcg/min.medications given as ordered.bp up slightly..then pt began agonal breathing.rapid response called.attempt to contact carmelo perry..no answer.moved to icu at 0910
[2024-07-07 09:18] LABS: Alanine Aminotransferase 29 U/L (0-41); Albumin Level 2.6 g/dL (3.5-5.2); Alkaline Phosphatase 62 U/L (40-130); Anion Gap 16.8 (5-19); Aspartate Amino Transferase 28 U/L (0-40); Blood Urea Nitrogen 43 mg/dL (8-23); Calcium 7.9 mg/dL (8.5-10.5); Carbon Dioxide 20 mmol/L (22-29); Chloride 105 mmol/L (98-107); Creatinine Clr Calc Pharmacy 31.8258; Globulin 2.4 g/dL (1.3-4.6); Glucose 198 mg/dL (65-115); Osmolality Calculated 302 mOsm/kg (285-295); Potassium 3.8 mmol/L (3.5-5.1); Sodium 138 mmol/L (136-145); Total Bilirubin 0.8 mg/dL (0.15-1.2)
--- NOTE | 2024-07-07 09:34 | ECG_ITS ---
[facility] 2024-07[facility]07 Pat Name: Steve Garcia Department: Room: ICU11 Gender: Male Hand Stamper: : 1950 Requested By: Keily Cleveland Order Number: [id number] Reading MD: GABI MARTE Measurements Intervals [place] Rate: 110 P: 56 IL: 131 QRS: 16 QRSD: 82 T: 65 QT: 326 QTc: 443 Interpretive Statements SINUS TACHYCARDIA ABNORMAL RHYTHM ECG Compared to ECG 06/30/2024 15:47:11 Atrial fibrillation no longer present ST (T wave) deviation no longer present Electronically Signed On 07-11-2024 23:53:51 MORTGAGE SALES MANAGER by GABI MARTE [email or web address]
[2024-07-07] MEDS: norepinephrine 4 MG/250 ML BAG 45 MG IV (09:35)
[2024-07-07 09:44] LABS: Troponin T (5th) Once 255 ng/L (0-15)
--- NOTE | 2024-07-07 09:50 | USCV_ITS ---
Steve Garcia Age: 74 Gender: M : 1950 Exam Date: 07/07/2024 14:24 Ordering Phys: Keily Cleveland MD Technologist: [place] [facility] [place]: tach BP: 85 / 54 HR: Rhythm: Sinus Technical Quality: Adequate MEASUREMENTS (Male / Female) Normal Values 2D ECHO LVOT Diameter 2.3 cm LA Diameter 3.1 cm Aorta at Sinotubular Diameter 3.6 cm FINDINGS Left Ventricle Right Ventricle Right Atrium Left Atrium Mitral Valve Aortic Valve Tricuspid Valve Pulmonic Valve Pericardium Aorta IVC CONCLUSIONS Technically limited quality echocardiogram because of poor ultrasonic windows LV systolic function is grossly normal Small to moderate sized pericardial effusion seen. Helder Christiansen MD (Electronically Signed) Final Date: 07 July 2024 20:27 S
[2024-07-07] MEDS: sodium chloride 0.9% 500 ML 999 ML IV (10:03)
[2024-07-07] MEDS: sodium chloride 0.9% 1,000 ML 100 ML IV (10:03)
--- NOTE | 2024-07-07 10:13 | P.PN_ITS ---
Subjective 2 Subjective: Patient has an episode this morning when he became hypotensive and unresponsive and rapid response was called. Patient transferred to ICU currently, he is on pressors and started on IV fluids. Medications: Reviewed: Yes Vitals/I&O/Wt Last Vital Signs Temp 97.8 F 07/07/24 08:00 Pulse 82 07/07/24 08:00 Resp 28 H 07/07/24 08:00 BP 88/50 07/07/24 08:00 Pulse Ox 98 07/07/24 08:00 O2 Del Method Nasal Cannula 07/07/24 08:00 O2 Flow Rate 2 07/06/24 22:10 FiO2 30 07/04/24 12:22 07/06/24 07/07/24 07/07/24 22:59 06:59 14:59 Intake Total 120 / 480 Output Total 750 / 750 100 / 850 Balance -630 / -270 -100 / -370 Weight last 48 hrs Weight 78.471 kg Weight 80.513 kg Physical Exam 2 Narrative: Somnolent, no distress Is alert and output Lungs with crackles bilaterally per report Abdomen soft nontender per report No pedal edema Urinary Catheter Management: [place]: Cath Placed During This Visit: yes Reason for Continuing Indwelling Catheter: Accurate Measurement of Urinary Output in Critically Ill Patients Urinary Catheter Date of Insertion: 06/30/24 Data 07/07/24 08:54 07/07/24 08:54 A&P Assessment and plan (1) Acute kidney injury: 74 yr old man with underlying dementia admitted to the hospital due to altered mental status and severe STALIN 1. Acute kidney injury: Patient has severe STLAIN-thought to be prerenal and obstructive uropathy on presentation but that has improved with IV fluid resuscitation but creatinine rising in the last couple of days, and this morning patient had an episode of hypotension. Possibly developing ATN He is currently on pressors and IV fluids Workup still in process to rule out sepsis versus SD, noted elevated troponins If renal function continues to get worse, given multiple comorbidities will discuss with family regarding options of temporary dialysis vs conservative measures He also has a 2.1 cm renal mass and he needs outpatient urology evaluation. 2. Shock: With hypotension, has elevated troponins, on pressors, workup in process 3. Hypernatremia and post- STALIN/ obstructive diuresis- improved 4. Met acidosis , mild in the setting of sepsis and lactic acidosis, monitor, if acidosis dose will switch IV fluids to bicarbonate drip 5. History of hypertension and on hold now 6.Bradycardia , improved seen and examined using audio/ visual equipment with the aid of a RN Plan see above PDMP PDMP Reviewed: Not Reviewed Attestations 2 Medical Necessity Statement*: Per medicine team Coding Level of Care Code Acute Code for g Fwd Diagnoses Acute kidney injury N17.9
--- NOTE | 2024-07-07 11:31 | PC.SLP ---
DRUG ROOM CLERK visit attempted earlier but patient was being moved to ICU due to a rapid response being called.
--- NOTE | 2024-07-07 11:38 | ECG_ITS ---
[facility] Test Date: 2024-07-07 Pat Name: Steve Garcia Department: Room: ICU11 Gender: Male Lunchroom Attendant: : 1950 Requested By: Keily Cleveland Order Number: [id number] Reading MD: GABI MARET Measurements Intervals [place] Rate: 117 P: 60 LA: 141 QRS: 20 QRSD: 80 T: 57 QT: 333 QTc: 465 Interpretive Statements SINUS TACHYCARDIA WITH OCCASIONAL VENTRICULAR PREMATURE COMPLEXES ABNORMAL RHYTHM ECG Compared to ECG 07/07/2024 09:45:48 Ventricular premature complex(es) now present Electronically Signed On 07-11-2024 23:44:12 INSTRUMENT LENS GRINDER APPRENTICE by GABI MARTE [email or web address]
--- NOTE | 2024-07-07 11:48 | PC.OT ---
OT evaluation withheld this date per nursing request due to patient non-responsive. To attempt OT evaluation on a later date.
[2024-07-07 12:02] LABS: Troponin 5 2HR 260.7 ng/L (0-15)
[2024-07-07 12:03] LABS: Lactate (Lactic Acid level) 7.8 mmol/L (0.5-2.2)
[2024-07-07 12:05] LABS: Troponin 5 2HR Delta 5 ABS# (0-10)
[2024-07-07] MEDS: linezolid premix 600 MG/300 ML PREMIX 300 MG IV (12:17)
[2024-07-07] MEDS: meropenem 1,000 mg SDV 1000 MG IVP (12:17)
[2024-07-07] MEDS: albumin 12.5 GM/250 ML VIAL IV (12:34)
[2024-07-07] MEDS: norepinephrine 4 MG/250 ML BAG 75 MG IV ×2 (13:19→16:42)
[2024-07-07] MEDS: morphine 4 mg/mL SDV 1 mL 2 MG IVP (13:44)
--- NOTE | 2024-07-07 14:41 | P.PN_ITS ---
Subjective 2 Subjective: Patient seen multiple times during course of the day. Patient's nurse contacted me at around 8:30 AM today to report that patient was more lethargic and hypotensive. He had already received 1 L of fluid bolus. He was then started on Levophed and arrangements were being made to transfer to ICU. Thereafter a rapid response was called and blood pressure suddenly dropped more acutely with MAP in the 50s. He received an additional 500 cc fluid bolus. Stat CT of the head chest abdomen pelvis showed bilateral large retroperitoneal hematomas new compared to prior imaging on June 30, 2024. Hemoglobin dropped from 13 yesterday to 9 this morning. WBC count up from 14-21,000. Afebrile. Patient was transferred to the ICU and is currently on Levophed at 20 mics. He received an additional 500 cc bolus after being here and was started on normal saline at 100 cc. 1 unit packed red blood cell transfusion has been ordered. Repeat H&H additionally ordered for this afternoon. Baseline troponin returned elevated at 255, at 2 hours trending up ~260, pending 6-hour 10. Stat EKG without any acute ST-T wave changes. Patient is in sinus tachycardia. CT of the chest shows unchanged consolidation, unlikely to be the cause of his current decompensation. Lactate returned at 7.0. Medications: Reviewed: Yes Medication Review Details: Current Medications Acetaminophen (Acetaminophen 325 Mg Tablet) 650 mg PO Q6H PRN PRN Reason: Mild/Mod Pain Or Temp >/= 101 Albuterol/Ipratropium (Ipratropium-Albuterol 3 Ml Neb) 3 ml INHALATION Q6H PRN PRN Reason: SHORTNESS OF BREATH Last Admin: 07/03/24 20:37 Dose: 3 ml Amiodarone HCl (Amiodarone 200 Mg Tablet) 400 mg PO BID [facility] Last Admin: 07/03/24 17:29 Dose: 400 mg Amlodipine Besylate (Amlodipine 5 Mg Tablet) 5 mg PO DAILY [facility] Last Admin: 07/03/24 10:47 Dose: Not Given Cefepime HCl (Cefepime 1,000 Mg Sdv) 1,000 mg IVP Q24H [facility]; Protocol Last Admin: 07/03/24 17:27 Dose: 1,000 mg Docusate Sodium (Docusate Sodium 100 Mg Capsule) 100 mg PO BID [facility] Last Admin: 07/03/24 17:29 Dose: 100 mg Enoxaparin Sodium (Enoxaparin 80 Mg/0.8 Ml Syringe) 80 mg SUBCUT Q12H [facility] Last Admin: 07/03/24 20:32 Dose: 80 mg Ergocalciferol (Ergocalciferol (Vitamin D2) 50,000 Unit Capsule) 50,000 unit PO Q7D [facility] Stop: 07/17/24 11:11 Last Admin: 07/03/24 10:47 Dose: Not Given Hydralazine HCl (Hydralazine 20 Mg/Ml Inj 1 Ml) 10 mg IVP Q4H PRN PRN Reason: HTN Last Admin: 07/03/24 03:15 Dose: 10 mg Sodium Chloride (Sodium Chloride 0.9%) 1,000 mls @ 0 mls/hr IV .Q0M PRN PRN Reason: hypotension or symptomatic Albumin Human (Albumin) 12.5 gm in 50 mls @ 60 mls/hr IV PRN PRN PRN Reason: Hypotension and/or symptomatic Potassium Chloride/Dextrose (Dextrose 5% + Kcl 20 Meq) 20 meq in 1,000 mls @ 75 mls/hr IV .[id number] [facility] Last Admin: 07/04/24 00:04 Dose: 75 mls/hr Potassium Chloride (K-Ortiz Premix) 100 mls @ 50 mls/hr IV ONCE [facility] Last Infusion: 07/03/24 13:24 Dose: Infused Lanolin (Lanolin Oint 7 Gm) 1 applic TOPICAL PRN PRN PRN Reason: DRYNESS Last Admin: 07/02/24 09:52 Dose: 1 applic Levetiracetam (Levetiracetam 1,000 Mg/10 Ml c) 500 mg PO BID [facility] Last Admin: 07/03/24 17:29 Dose: 500 mg Methylprednisolone Sodium Succinate (Methylprednisolone Sod Succ 40 Mg/Ml Inj) 40 mg IVP Q8H [facility] Last Admin: 07/04/24 02:07 Dose: 40 mg Morphine Sulfate (Morphine 4 Mg/Ml Sdv 1 Ml) 2 mg IVP Q4H PRN PRN Reason: MODERATE PAIN Last Admin: 07/03/24 03:18 Dose: 2 mg Ondansetron HCl (Ondansetron 2 Mg/Ml Sdv 2 Ml) 4 mg IVP Q8H PRN PRN Reason: vomiting, or N/V if npo Ondansetron HCl (Ondansetron 2 Mg/Ml Sdv 2 Ml) 4 mg IVP Q6H PRN PRN Reason: NAUSEA AND VOMITING Pantoprazole Sodium (Pantoprazole 40 Mg Sdv) 40 mg IVP DAILY [facility] Last Admin: 07/03/24 09:10 Dose: 40 mg Thiamine Mononitrate (Thiamine 100 Mg Tablet) 100 mg PO DAILY [facility] Last Admin: 07/03/24 10:47 Dose: Not Given Vitals/I&O/Wt Last Vital Signs Temp 97.2 F L 07/07/24 13:56 Pulse 117 H 07/07/24 14:00 Resp 20 H 07/07/24 13:56 BP 77/61 07/07/24 13:56 Pulse Ox 97 07/07/24 13:56 O2 Del Method Nasal Cannula 07/07/24 12:48 O2 Flow Rate 5 07/07/24 12:48 FiO2 30 07/04/24 12:22 07/06/24 07/07/24 07/07/24 22:59 06:59 14:59 Intake Total 120 / 480 246.875 / 246.875 Output Total 750 / 750 100 / 850 100 / 100 Balance -630 / -270 -100 / -370 146.875 / 146.875 Weight last 48 hrs Weight 78.471 kg Weight 80.513 kg Physical Exam 2 Narrative: General: Obtunded, does not respond to any commands. Moves all 4 extremities however these are not purposeful movements. HEENT: PERRLA, pupils bilaterally equal and reactive, pallors not present Chest: Normal vesicular breath sounds, no added sounds, equal good air entry bilaterally CVS: S1-S2 regular, no murmurs, no tachycardia, no gallops, no rubs Abdomen: Soft, nontender, no organomegaly, bowel sounds present Neuro: Obtunded, does not respond to any questions. Does not follow any commands Urinary Catheter Management: Chamorro: Cath Placed During This Visit: yes Reason for Continuing Indwelling Catheter: Accurate Measurement of Urinary Output in Critically Ill Patients Urinary Catheter Date of Insertion: 06/30/24 Data 07/07/24 08:54 07/07/24 08:54 Micro: Microbiology 07/07/24 11:02 Blood Culture - Preliminary Blood SPECIMEN COLLECTED 07/07/24 10:00 Blood Culture - Preliminary Blood SPECIMEN COLLECTED Other data: CT/[place] [id number] IMPRESSION: 1. Interval development of large bilateral retroperitoneal fluid collections with layering most consistent with retroperitoneal hematomas. Hematomas involve the psoas and iliacus muscles with additional retroperitoneal fat stranding and displacement of the ureters due to their large size. Differential would include abscesses but thought less likely due to their appearance since 06/30/2024. 2. LEFT retroperitoneal collection measures 15.5 cm in length and the RIGHT 13.0 cm in length. 3. Patent bilateral inguinal canals with a small amount of the retroperitoneal hematoma extending into the LEFT inguinal canal. 4. Increased soft tissue in the presacral space is probably also related to the blood products. 5. Very small LEFT pleural effusion and LEFT basilar atelectasis with improvement since 07/02/2024. 6. Chamorro catheter in the urinary bladder. Notified Keily Cleveland MD at 07/07/2024 9:[address]/CT head wo con* [id number] IMPRESSION: 1. Stable noncontrast head CT. 2. Moderate cerebral and cerebellar atrophy and small vessel disease. No acute interval change since 06/30/2024. A&P Assessment and plan (1) Uremic encephalopathy: (2) Acute kidney injury: (3) Acute dehydration: (4) Atrial fibrillation with RVR: (5) Hypertension: Qualifiers: Hypertension type: essential hypertension Qualified Code(s): I10 - Essential (primary) hypertension (6) Bladder outlet obstruction: (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: (8) Gait instability: (9) Altered mental status: (10) Major depression: Qualifiers: Major depression recurrence: recurrent Active/Remission status: c urrently active Major depression episode severity: moderate Qualified Code(s): F33.1 - Major depressive disorder, recurrent, moderate (11) Acute renal failure: (12) Leukocytosis: (13) Pneumonia: (14) Hypoxia: (15) Hypernatremia: (16) DVT (deep venous thrombosis): Plan #Uremic encephalopathy #Severe acute kidney injury most likely postrenal cause with component of prerenal cause #Atrial fibrillation with RVR #Recent influenza #History of dementia #History of hypertension #Hypotensive on arrival, responsive to fluid, does not meet sepsis criteria #Altered mental status most likely secondary to urinary encephalopathy with component of metabolic encephalopathy #Possible pneumonia #Cannot rule out aspiration #History of alcohol abuse #BPH, enlarged prostate #Dehydration ? Patient presents with severe dehydration. With severe STALIN with BUN 140 creatinine 9.1 with recent flu and enlarged prostate with chronic bladder outlet obstruction most likely the cause of his STALIN at this time. He did immediately have 2 L urine output upon insertion of Chamorro catheter. Will have to watch for polyuric phase. ? Patient is completely confused and encephalopathic most likely secondary to pneumonia however more so likely secondary to uremic encephalopathy due to BUN being 140. At baseline he is able to walk and talk as per half-way. ? He was hypotensive on arrival however responded to fluid. Does not meet sepsis criteria at this time ? Will continue normal saline 125 cc/h at this point ? Have called general surgery for dialysis catheter placement. Patient may require urgent dialysis secondary to uremic encephalopathy as one of the indications. Discussed with nephrology as well. ? Will repeat BMP at this time. ? Patient is a full code as per previous records. No family present at bedside. ? He is currently in A-fib with RVR. Have started on an amiodarone drip. Will continue to do so at this time. Titrate as per protocol. ? Will check echocardiogram ? CT abdomen pelvis reviewed. Chronic outlet obstruction noted. No sign of pyelonephritis ported however perinephric stranding present. I will cover with cefepime at this time which will cover for pneumonia and possible urinary tract infection. ? N.p.o. at this time till seen by speech ? Low suspicion of stroke at this time however cannot be ruled out completely. Unable to do CTA head and neck secondary to severe STALIN. CT head negative at time of admission. May consider MRI if mental status does not improve. Symptoms have been going on for last few days. He would be out of the window for any kind of tPA at this point. ? Continue to recheck labs every 6 hours. ? Continue thiamine folic acid ? Hold home losartan and any other nephrotoxic agents. ? Patient on Keppra at home. Will check Keppra levels however we will hold off on ordering any at this time secondary to severe STALIN. Will continue to monitor patient. Will discuss with pharmacy to possibly renally dose. ? Continue Chamorro catheter for accurate output. Full code DVT prophylaxis: Heparin SQ twice daily 07/01/2024 Patient currently requiring 55 L high flow nasal cannula. Will continue to wean off oxygen as able Does have a left lower lobe pneumonia. Continue linezolid and cefepime at this time. Will check speech swallow evaluation Check MRSA nares ? Creatinine and BUN are starting to improve. Patient is more responsive today. Dialysis could not be performed last night secondary to acute hypotension requiring vasopressors. ? Vasopressors have been turned off this morning. Blood pressure is stable. ? Patient is rate controlled now. ? STALIN: Slowly improving. ? Continue LR at 125 cc/h ? Hold nephrotoxic agents ? Patient did get 1 dose of Keppra last night. ? When placed on IV Keppra twice daily ? Check speech swallow evaluation and start diet when patient able to participate better. ? Sputum culture blood culture pending at this time. -Echo pending Discussed with family regarding goals of care. They would like CPR and intubation if required at this time. Patient to remain a full code. They are also okay with dialysis if needed. ? Will repeating labs at noon today. Await recommendations from nephrology. ? Patient has a known history of COVID few weeks ago and influenza 1 to 2 weeks ago as per family. I will check respiratory viral panel to rule out RSV. 07/02/2024 -Creatinine and BUN improving. Creatinine down to 1.8. 4 L urine output in last 24 hours. ? Venous Dopplers positive for nonocclusive thrombus in right common femoral vein. If no plan for dialysis going forward will remove femoral line. Placed on heparin drip at this time. D-dimer greater than 20. Patient is requiring high flow nasal cannula 55 to 60 L however saturations do improve after suctioning. He is having quite a bit of respiratory secretions that are thick. PE cannot be ruled out at this time. Continue heparin drip which will cover for that. When and if kidney function improves and creatinine normalizes consider CTA chest to rule out PE going forward. He does have a left lower lobe pneumonia however his hypoxia is out of proportion to pneumonia at this time. No evidence of ARDS on chest CT from this morning. There is also dependent atelectasis right lung base and small bilateral pleural effusions. ? Will check ABG ? Patient has remained off of vasopressors. ? Continue linezolid and cefepime at this time. Hold off on Vanco and Zosyn secondary to STALIN. ? Respiratory viral panel negative at this time. ? Continue Keppra IV twice daily. ? Speech therapy evaluated patient however patient deemed unsafe to tolerate oral at this time. If there is no improvement by tomorrow we will consider PPN initiation. ? Echo reviewed. EF 65%, mild left ventricular hypertrophy no regional wall motion abnormalities grade 1 x 4 diastolic dysfunction. Patient does have bilateral lower extremity 1-2+ edema. ? Sodium 154. Patient is hypernatremic. Osmolality 335. He does have a free water deficit. Fluids have been switched from normal saline to half-normal saline at this time. ? Chloride 119, anion gap 19.5. Possible hyperchloremic metabolic acidosis. ? Continue Solu-Medrol 40 IV every 8 hours. Will order chest vest ? Patient still NPO. Will continue amiodarone drip at 0.5/h. Will recheck EKG. He does not have a known history of atrial fibrillation ? Overall mental status is improving. ? Family okay with intubation if needed. ? PT OT once able to participate. - Collect sputum - will talk to RN -Hypertension: Will place on hydralazine 10 every 4 hours as needed. Hold oral medications at this time due to n.p.o. status. DVT prophylaxis: Patient on heparin drip at this time GI prophylaxis: Protonix 40 IV daily Full code July 03, 2024 Chart reviewed. 74-year-old male admitted on 06/30 with AMS sent from [place]. Recent h/o FLU , recent h/o hematuria needing Chamorro placement on arrival. Stalin with Cr at 9. CT head negative. HD catheter placed 06/30, however eventually did not need to start dialysis.. He had h for which she has remained on amiodarone infusion. Ypernatremia and A fib RVR on admission. on 07/01 he was started on 2 pressors, which are currently weaned off.. Ct abdomen with enlarged prostate, likely chronic bladder outlet obstruction, 2.1 cm renal mass. We do not have urology services available inpatient, this will need further evaluation once he is discharged from the hospital. For now we will continue to maintain his Chamorro catheter and set up urology as outpatient. Stalin now improving. Creatinine is improving to 1.2. Urine output 3.3 L. Hospital course also notable for hypoxic resp failure on HHF oxygen. Chest imaging shows left lower lobe pneumonia, however do not anticipate a small patch of pneumonia to be responsible for significant hypoxia is currently noted. DVT +. Presumably patient has a PE given discovery of DVT. Deferred CT with contrast due to STALIN, recently recovered kidney function, no change in management with additional discovery of PE on top of DVT. Patient is on anticoagulation with heparin drip at this time. Will transition to Lovenox 1 mg/kg every 12 hours today since kidney function has recovered Closely monitor platelets. Currently down at 120 from 160 upon admission. Blood cx negative. UA negative. on cefepime and linezolid empirically check MRSA nasal screen. If negative discontinue linezolid. RVP negative. Afebrile.? Patient is continuing to be encephalopathic. This may be related to toxic metabolic encephalopathy from acute events as described above. CT of the head was negative for stroke upon admission. Per half-way report patient is typically ambulatory at baseline. Able to have a full conversation. No known swallowing issues. Will order PT OT evaluation. Speech therapy evaluation appreciated. If continues to remain persistently encephalopathic, will obtain MRI of the head. 07/04/24: Bradycardic today, HR ranging ~55, reduce amiodarone to 400mg daily at this time. BP 170 systolic this am, increase amlodipine to 10mg daily, hydralazine added earlier today by nephrology. MRI head without signs of acute stroke. Patient participated with PT today- noted to be mod to max assist, unable to ambulate at this time. Likely severe deconditioining is related to acute critical illness. STALIN remains resolved, good urine output, previously placed HD cath removed on 07/02. Noted leukocytosis today ? cause. CXR with unchanged infiltrate, check UA. May be related to high dose steroids, reduce methylpred to 40mg daily from q8h today and reassess. No fever. No other localizing signs of infection at this time. Will plan to complete 5-7 day course of cefepime for pneumonia. Hypernatremia improving today , patient developing LE swelling, reduce IVF rate to 50 cc/hr Transfer out of ICU to [facility] today July 05, 2024 Bradycardia with heart rate ranging 40-50. Amiodarone on hold today. Blood pressure is better controlled. Patient is more lethargic today. Review of chart shows he received morphine last at 2 AM. Will hold all opiates going forward. Trial of Narcan and see if patient's mentation improves. MRI of the brain was negative for any acute intracranial events. Leukocytosis stable at 14,000. Chest x-ray without any increased consolidation. Per personal review no infiltrates noted. Patient has been afebrile and hemodynamically stable. May be related to high-dose steroid use. He is currently on cefepime coverage. Plan to complete a 7-day course. Discontinue steroids today and closely monitor. July 06, 2024. Bradycardia is improving today, heart rate is mostly in the 60s. At the time of this assessment heart rate at 69 bpm. Continue to hold amiodarone again today. Patient is more awake and alert today. Pain is currently controlled with tramadol. Would not use opiates for now. Leukocytosis remains stable at 14,000. He is afebrile. Discontinue cefepime as he has completed a 7-day course for pneumonia. Creatinine remained stable. Hypernatremia resolved with sodium at 137. Overall patient's acute issues are improving. He remains severely deconditioned as a result of his acute critical illness. Encourage continued participation with PT OT. July 07, 2024 Patient was improving until last evening, however this morning suddenly became hypotensive and obtunded. Found to have bilateral large retroperitoneal hematomas. Hemoglobin dropped from 13 to 9. 1 packed red blood cell transfusion ordered. Serially repeating H&H ordered. Baseline troponin returned at 255 trending up to 260. Limited echo ordered., No acute ST-T wave changes. Potential concern for ACS, however, more likely to be type II MS. Will follow troponin trend. Discontinue Lovenox. Unfortunately even with the elevated troponins and known DVT, presumed PE as a cause of patient's persistent hypoxia, we cannot safely continue anticoagulation anymore. This was discussed with the family. Consideration may be for IVC filter should patient survive this current and soaked. Unfortunately he is in hemorrhagic shock currently. He has received 2 L of fluid bolus overall, continuing on normal saline at 100 cc an hour, currently on Levophed at 20. Patient's family is concerned about his long-term prognosis. Discussed with them that given his multiple recent acute illness, severe deconditioning from the recent illness, inability to continue anticoagulation for known DVT/presumed PE, and now with massive bleeding, his prognosis is poor. It is unlikely that patient will return to his prior level of functioning in the next few days to weeks. They are concerned that he may be bedbound for a while going forward. Family has elected to proceed with changing CODE STATUS to DNR/DNI and no further escalation of care at this point. Should patient fail to improve with above interventions, will likely transition to comfort care management. PDMP PDMP Reviewed: Not Reviewed Attestations 2 Medical Necessity Statement*: Retroperitoneal bleeding today, hemorrhagic shock, acute blood loss, prognosis poor, goals of care discussions Coding Level of Care Code Critical Care >/= 30 minutes Critical care time (in minutes): 60 The high probability of a clinically significant, sudden or life threatening deterioration, as referenced in this documentation, required my full and direct attention, intervention and personal management. The critical care time shown is in addition to time spent performing any reported separately billable procedures and includes the following: [x] Data and vital sign review and interpretation [x ] Patient assessment, examination and intervention [x] Medication orders and management [x] Patient/Family updates as able [x] Care Coordination and Documentation. Diagnoses Uremic encephalopathy G93.49; N19 Acute kidney injury N17.9 Acute dehydration E86.0 Atrial fibrillation with RVR I48.91 Essential hypertension I10 Hypertension type: essential hypertension Bladder outlet obstruction N32.0 Dementia associated with alcoholism with behavioral disturbance F10.27 Gait instability R26.81 Altered mental status R41.82 Moderate episode of recurrent major depressive disorder F33.1 Major depression recurrence: recurrent Active/Remission status: currently active Major depression episode severity: moderate Acute renal failure N17.9 Leukocytosis D72.829 Pneumonia J18.9 Hypoxia R09.02 Hypernatremia E87.0 DVT (deep venous thrombosis) I82.409
--- NOTE | 2024-07-07 15:32 | ECG_ITS ---
[employer] Test Date: 2024-07-07 Pat Name: Steve Garcia Department: Room: ICU11 Gender: Male [employer]: : [id number] Requested By: Keily Cleveland Order Number: [id number] Reading MD: GABI MARTE Measurements Intervals [place] Rate: 115 P: 70 IN: 152 QRS: 16 QRSD: 80 T: 38 QT: 327 QTc: 453 Interpretive Statements SINUS TACHYCARDIA NONSPECIFIC ST & T-WAVE ABNORMALITY ABNORMAL RHYTHM ECG Compared to ECG 07/07/2024 11:38:28 T-wave abnormality now present Ventricular premature complex(es) no longer present Electronically Signed On 07-11-2024 23:52:47 GAS STATION ATTENDANT by GABI MARTE [email or web address]
[2024-07-07] MEDS: morphine 4 mg/mL SDV 1 mL IVP ×2 (16:51→17:16)
--- NOTE | 2024-07-07 17:24 | PC.NURSE ---
Patient was a rapid response that arrived to the ICU unit with hypotension and not able to follow commands. Patient was maxed out at 20 mcg of levophed. Patient's power of trial attorney decided to turn patient AND and not to escalate care. Patient became unresponsive and began agonal breathing. Patient's Power of trial attorney decided to make the patient comfort care.
--- NOTE | 2024-07-07 19:25 | PC.NURSE ---
Addendum entered by Ann Edwards RN 07/07/24 19:35: Verified with Marc BOSWELL that patient did not have heart or breath sounds. TOD at 1923. Original Note: Patient's monitor alerted asystole. This nurse along with ANDREIA Juarez went into the room to assess for a heart sounds and for a breath sound. Neither could be auscultated. Patient at 1923. Dr. Cleveland was notified.
--- NOTE | 2024-07-07 23:12 | PC.NURSE ---
Patient taken to [facility] [place] at [phone].
--- NOTE | 2024-07-08 10:47 | P.DES_ITS ---
Discharge Providers DDS Date of Admission: 06/30/24 15:39 Date Summary Completed: 07/08/24 Attending Provider at Admission: Nikky Garner MD Time of : 19:24 Attending Provider at Discharge: Keily Cleveland MD Primary Care Provider: DO SHAYY Dunn Diagnoses Hospital Diagnoses (1) Uremic encephalopathy: (2) Acute kidney injury: (3) Acute dehydration: (4) Atrial fibrillation with RVR: (5) Hypertension: Qualifiers: Hypertension type: essential hypertension Qualified Code(s): I10 - E ssential (primary) hypertension (6) Bladder outlet obstruction: (7) Gait instability: (8) Altered mental status: (9) Major depression: Qualifiers: Major depression recurrence: recurrent Active/Remission status: currently active Major depression episode severity: moderate Qualified Code(s): F33.1 - Major depressive disorder, recurrent, moderate (10) Acute renal failure: (11) Leukocytosis: (12) Pneumonia: (13) Hypoxia: (14) Hypernatremia: (15) DVT (deep venous thrombosis): (16) Hemorrhagic shock: (17) Retroperitoneal bleeding: (18) Hypoxic respiratory failure: (19) Type 2 MA (myocardial infarction): Reason for Visit Reason for Visit flu - decreased intake Summary Date and Time of Date of : 07/07/24 Time of : 19:24 Summary Summary: 74-year-old male admitted on 06/30 with AMS sent from [facility]. Recent h/o FLU , recent h/o hematuria needing Chamorro placement on arrival. Stalin with Creatinine at 9 on arrival with uremic encephalopathy. CT head negative. HD catheter placed 06/30, however eventually did not need to start dialysis as creatinine improved back to normal at 1.0 Hospital course complicated by A fib with RVR for which he started amiodarone, thereafter became bradycardic so amiodarone stopped. He remained in rate controlled sinus rhythm.He had hypernatremia which was treated. Ct abdomen with enlarged prostate, likely chronic bladder outlet obstruction, 2.1 cm renal mass. Hospital course also notable for hypoxic resp failure for which patient remained on HHF in the ICU, therefater was able to be weaned down to 2lpm. Chest imaging showed left lower lobe pneumonia, however this small PNA was considered less likely to be the cause of significant hypoxia. He was also noted to have a DVT involving the right common femoral vein. . Presumably patient had a PE additionally given significant hypoxia and discovery of DVT. Deferred CT with contrast due to STALIN, recently recovered kidney function, no change in management with additional discovery of PE on top of DVT. Patient received anticoagulation with heparin drip initially, with transition to lovenox 1mg/kg s/c q12h once renal function and therombocytopenia recovered. Blood cx negative. UA negative. he received treatment with cefepime and linezolid during admission. Overall patient's acute issues were improving during hospital stay. He remained severely deconditioned as a result of his acute critical illnesses and had fluctuating mentation during course of admission (CT head and MRI head negative for acute events), but overall was improving until jul 06 and was planned to be discharged to SNF for continued rehab on . Unfortunately morning of jul 07, he developed acute hypotension with SBP dropping in the 50s and became unresponsive. He was found to have B/L large retroperitonel hematomas and acute drop in Hemoglobin from 13 a day prior to 9.0. He received blood transfusion, pressor support and IV resuscitation however did not show any visible imprpvement.He developed agonal breathing by late afternoon. His family was at bedside and initially decided to make him DNR/DNI/no escalation of care and eventually proceeded to make him comfort care by the evening. Patient on comfort care management at 19:24hrs. Additional Data Family: at bedside Additional persons at bedside: nursing staff Attending/PCP notified?: I am attending Was code activated?: No Autopsy requested?: No Advance directives?: Yes Hospice patient?: No Discharge Plan Discharge Patient Disposition: Condition: Stable Prescriptions: No Action levetiracetam [Keppra] 500 mg tablet 500 mg PO BID Qty: 90 2RF Vitamin B-1 (mononitrate) 100 mg tablet 100 mg PO DAILY Qty: 60 2RF cholecalciferol (vitamin D3) 1,250 mcg (50,000 unit) capsule 50,000 unit PO .weekly Qty: 12 2RF losartan 50 mg tablet 50 mg PO DAILY Qty: 90 1RF amlodipine 5 mg tablet 5 mg PO DAILY pantoprazole 40 mg Tablet,Delayed Release (Dr/Ec) 40 mg PO DAILY Qty: 30 0RF Probable Cause of Probable cause of : Hemorrhage DS Attestations Time Spent in /Discharge Care*: greater than 30 min Quality - AMI: AMI present?: No Quality - Stroke: CVA present?: No Quality - VTE: VTE present?: Yes Coding Level of Care Code Acute Code for Chg Fwd Diagnoses Uremic encephalopathy G93.49; N19 Acute kidney injury N17.9 Acute dehydration E86.0 Atrial fibrillation with RVR I48.91 Essential hypertension I10 Hypertension type: essential hypertension Bladder outlet obstruction N32.0 Gait instability R26.81 Altered mental status R41.82 Moderate episode of recurrent major depressive disorder F33.1 Major depression recurrence: recurrent Active/Remission status: currently active Major depression episode severity: moderate Acute renal failure N17.9 Leukocytosis D72.829 Pneumonia J18.9 Hypoxia R09.02 Hypernatremia E87.0 DVT (deep venous thrombosis) I82.409 Hemorrhagic shock R57.8 Retroperitoneal bleeding R58 Hypoxic respiratory failure J96.91 Type 2 MA (myocardial infarction) I21.A1
== END 2024-07-07 23:12 | disposition expired ==
LOC: ER 12:47 → ER IP 15:40 → ICU 19:06 → CSU 07-04 14:59 → ICU 07-07 09:25
PROVIDERS: Family Medicine; Hospitalist; Internal Medicine; Internal Medicine Nephrology; Admitting Provider Internal Medicine; Emergency Provider Emergency Medicine; PCP Internal Medicine; Visit Provider Student in an Organized Health Care Education/Training Program
DX: I82.411 Acute embolism and thrombosis of right femoral vein (principal); I26.99 Other pulmonary embolism without acute cor pulmonale; I21.A1 Myocardial infarction type 2; J69.0 Pneumonitis due to inhalation of food and vomit; J96.91 Respiratory failure, unspecified with hypoxia; K68.3 Retroperitoneal hematoma; N17.9 Acute kidney failure, unspecified; G93.40 Encephalopathy, unspecified; N13.8 Other obstructive and reflux uropathy; F33.1 Major depressive disorder, recurrent, moderate; E87.0 Hyperosmolality and hypernatremia; E87.20 Acidosis, unspecified; E86.0 Dehydration; I48.91 Unspecified atrial fibrillation; I10 Essential (primary) hypertension; N40.1 Benign prostatic hyperplasia with lower urinary tract symptoms; R26.89 Other abnormalities of gait and mobility; R57.8 Other shock; R00.1 Bradycardia, unspecified; R00.0 Tachycardia, unspecified; F17.210 Nicotine dependence, cigarettes, uncomplicated; F10.20 Alcohol dependence, uncomplicated; F03.90 Unspecified dementia, unspecified severity, without behavioral disturbance, psychotic disturbance, mood disturbance, and anxiety; Z51.5 Encounter for palliative care; Z66 Do not resuscitate; I95.9 Hypotension, unspecified; N28.89 Other specified disorders of kidney and ureter
CPT/HCPCS: 36415; 36416; 36430; 36600; 51702; 70450; 70551; 71045; 71250; 74176; 80048; 80051; 80053; 80177; 81001; 82140; 82306; 82330; 82607; 82805; 82962; 83605; 83690; 83735; 83883; 84100; 84145; 84155; 84165; 84443; 84484; 85025; 85378; 85610; 85730; 86334; 86706; 86850; 86900; 86920; 87040; 87340; 87426; 87486; 87581; 87633; 92507; 92526; 92610; 93005; 93306; 93308; 93970; 94640; 94664; 94669; 96361; 96372; 96374; 96376; 97110; 97163; 97530; 99285; A4222; J0283; J0360; J0692; J1630; J1644; J1650; J1953; J2020; J2185; J2270; J2310; J2470; J2598; J2704; J2919; J3475; J3480; J7030; J7040; J7120; P9040; P9045; P9047; Q3014